=== PATIENT | female | born 1955 | race Caucasian/White ===

== ENCOUNTER → 2017-10-29 12:17 | Outpatient (CLI) | payer OTHER, SELFPAY | PROVIDERS: Family Provider Nurse Practitioner Primary Care; PCP Nurse Practitioner Primary Care; Visit Provider Nurse Practitioner Primary Care | DX: Z12.31 Encounter for screening mammogram for malignant neoplasm of breast (principal) | CPT/HCPCS: 77063; 77067 ==

== ENCOUNTER → 2018-08-24 10:03 | Outpatient (CLI) | payer OTHER, SELFPAY ==
[2016-08-12 11:48] VITALS: BMI 24.3
[2018-08-24 11:12] LABS: T4 Free Direct 1.55 ng/dL (0.76-1.46); Thyroid Stim Hormone (TSH) 0.47 uIU/mL (0.358-3.74)
== END ==
PROVIDERS: Family Provider Nurse Practitioner Primary Care; PCP Nurse Practitioner Primary Care; Referring Provider Nurse Practitioner Primary Care; Visit Provider Nurse Practitioner Primary Care
DX: E89.0 Postprocedural hypothyroidism (principal)
CPT/HCPCS: 36415; 84439; 84443

== ENCOUNTER → 2018-10-02 11:39 | Outpatient (CLI) | payer OTHER, SELFPAY ==
[2018-10-02 13:20] LABS: T4 Free Direct 1.63 ng/dL (0.76-1.46); Thyroid Stim Hormone (TSH) 0.38 uIU/mL (0.358-3.74)
== END ==
PROVIDERS: Family Provider Nurse Practitioner Primary Care; PCP Nurse Practitioner Primary Care; Referring Provider Nurse Practitioner Primary Care; Visit Provider Nurse Practitioner Primary Care
DX: E89.0 Postprocedural hypothyroidism (principal)
CPT/HCPCS: 36415; 84439; 84443

== ENCOUNTER → 2018-11-16 09:17 | Outpatient (CLI) | payer OTHER, SELFPAY ==
[2016-08-12 11:48] VITALS: BMI 24.3
[2018-11-16 10:54] LABS: Thyroid Stim Hormone (TSH) 2.34 uIU/mL (0.358-3.74)
== END ==
PROVIDERS: Family Provider Nurse Practitioner Primary Care; PCP Nurse Practitioner Primary Care; Referring Provider Nurse Practitioner Primary Care; Visit Provider Nurse Practitioner Primary Care
DX: E03.9 Hypothyroidism, unspecified (principal)
CPT/HCPCS: 36415; 84443

== ENCOUNTER → 2018-12-17 08:28 | Outpatient (CLI) | payer OTHER, SELFPAY ==
--- NOTE | 2018-12-17 08:31 | BI_ITS ---
MAMMOGRAPHY - BILATERAL SCREENING REASON FOR EXAM: Female, 63 years old. Routine annual screening examination. PERTINENT HISTORY: Non-contributory. TECHNIQUE: Digital bilateral breast rusty (3D mammographic acquisition) in the CC and MLO projections. 2-D mediolateral oblique (MLO) and craniocaudad (CC) views of both breasts were obtained. CAD: Full Field Digital Mammography with Computer Added Detection was performed. COMPARISON: Comparison is made with prior study dated October 29, 2017 and October 17, 2016. FINDINGS: Breast Composition: The breasts are heterogeneously dense, which may obscure small masses. There are no dominant masses or suspicious calcifications. Stable 5.4 mm x 6 mm well-defined nodule in the axillary region of the left breast. This most likely represents a small lymph node. No other significant abnormalities are identified. There has been no significant change since the prior study. BI/SCREEN MAMM (CAD) W/RUSTY BILAT IMPRESSION: Stable bilateral screening mammogram. Yearly follow-up mammogram recommended. (A) ASSESSMENT CATEGORY: BIRADS Category 2: Benign. A letter regarding these results will be sent to the patient by the facility within 30 days. Approximately 10% of breast cancers are not detected by mammography. A normal mammogram should not delay biopsy of a clinically suspicious abnormality. [id number] Electronically Signed: Kumar Leblanc, at 10:00 EDT , Service support ,
== END ==
PROVIDERS: Family Provider Nurse Practitioner Primary Care; PCP Nurse Practitioner Primary Care; Referring Provider Nurse Practitioner Primary Care; Visit Provider Nurse Practitioner Primary Care
DX: Z12.31 Encounter for screening mammogram for malignant neoplasm of breast (principal); E11.9 Type 2 diabetes mellitus without complications; E03.9 Hypothyroidism, unspecified
CPT/HCPCS: 77063; 77067

== ENCOUNTER → 2019-01-15 11:35 | Outpatient (CLI) | payer OTHER, SELFPAY ==
[2019-01-15 13:54] LABS: ALB/GLOB Ratio 1.2 RATIO (0.9-2.4); AST(SGOT) 21 U/L (15-37); Alanine Aminotransfer ALT/SGPT 27 U/L (13-56); Albumin, Serum 3.9 g/dL (3.2-5.0); Alkaline Phosphatase 57 U/L (45-117); Anion Gap 9 (5-15); BUN 15 mg/dL (7-18); BUN/Creat Ratio 17.2 RATIO (10-20); Calcium,Total 9.3 mg/dL (8.5-10.1); Chloride 105 mmol/L (98-107); Cholesterol 180 mg/dL (200); Creatinine, Serum 0.87 mg/dL (0.55-1.02); EST Glomerular Filtration Rate 70 mL/min (>60); Est Glom Filt Rate - Afr Amer 84 mL/min (>60); Globulin 3.3 g/dL (2.2-4.2); Glucose 129 mg/dL (74-106); High Density Lipoprotein 106 mg/dL; Potassium 4.1 mmol/L (3.5-5.1); Protein, Total 7.2 g/dL (6.4-8.2); Sodium Level 141 mmol/L (136-145); Thyroid Stim Hormone (TSH) 1.73 uIU/mL (0.358-3.74); Triglycerides 73 mg/dL; Very Low Density Lipoprotein 15 mg/dL (5-40)
== END ==
PROVIDERS: Family Provider Nurse Practitioner Primary Care; PCP Nurse Practitioner Primary Care; Referring Provider Nurse Practitioner Primary Care; Visit Provider Nurse Practitioner Primary Care
DX: E03.9 Hypothyroidism, unspecified (principal); E11.9 Type 2 diabetes mellitus without complications; E78.00 Pure hypercholesterolemia, unspecified
CPT/HCPCS: 36415; 80053; 80061; 84443

== ENCOUNTER → 2019-02-19 10:35 | Outpatient (CLI) | payer OTHER, SELFPAY ==
--- NOTE | 2019-02-19 10:37 | US_ITS ---
STUDY: ULTRASOUND BREAST - LEFT REASON FOR EXAM: Female, 63 years old. Abnormal screening mammogram. TECHNIQUE: Axial and longitudinal images of the LEFT breast were performed with a high resolution ultrasound transducer. # OF IMAGES: 11 COMPARISON: Comparison is made with prior mammogram dated December 17, 2018. FINDINGS: LEFT Breast: The upper outer quadrant was examined with ultrasound. There is a 5.7 mm x 5.6 mm benign-appearing lymph node at the 1:00 position of the breast at 5 cm from the nipple. US/Breast Limited Unilateral IMPRESSION: 5.7 mm x 5.6 mm benign-appearing lymph node at the 1:00 position of the breast at 5 cm from nipple. ASSESSMENT CATEGORY: BIRADS Category 2: Benign. A letter regarding these results will be sent to the patient by the facility within 30 days. Electronically Signed: Kumar Leblanc, at 12:25 EST , Service support ,
== END ==
PROVIDERS: Family Provider Nurse Practitioner Primary Care; PCP Nurse Practitioner Primary Care; Referring Provider Nurse Practitioner Primary Care; Visit Provider Nurse Practitioner Primary Care
DX: R59.0 Localized enlarged lymph nodes (principal)
CPT/HCPCS: 76642

== ENCOUNTER → 2019-03-02 13:58 | Outpatient (CLI) | payer OTHER, SELFPAY ==
[2016-08-12 11:48] VITALS: BMI 24.3
--- NOTE | 2019-03-02 14:02 | CT_ITS ---
STUDY: CT ORBITS WITHOUT CONTRAST REASON FOR EXAM: Female, 63 years old. GRAVES DX, WATERY EYE, LEFT RADIATION DOSAGE (If Supplied By Facility): CTDIvol = ( 29.38 ) mGy, DLP = ( 341.77 ) mGycm TECHNIQUE: The patient was scanned in a multi detector CT scanner. Transaxial imaging was performed without the administration of intravenous contrast material. Sagittal and coronal images were reconstructed. Individualized dose optimization techniques were used for this CT. COMPARISON: None. FINDINGS: Normal globes. Normal intraconal spaces. Normal optic nerve sheath complex. There is moderately prominent, spindle-shape of extraocular muscles (predominantly involving inferior rectus and medial rectus) with mild proptosis. Normal lacrimal glands. Normal bilateral medial and inferior orbital merino. Normal bilateral maxillary bones. Normal bilateral frontozygomatic arches. Normal bilateral zygomatic temporal arches. Normal frontal sinus. There is minimal soft tissue density involving multiple bilateral ethmoid air cells. No paranasal sinus air-fluid levels. Normal maxillary sinuses. Normal sphenoid sinuses. Normal soft tissue structures. CT/Orb Sella Post Fossa Ear w/o IMPRESSION: Findings most compatible with Graves ophthalmopathy, consistent with provided clinical history Electronically Signed: Sherwin Bowden MD at 7:41 EST , Service support ,
== END ==
PROVIDERS: Family Provider Nurse Practitioner Primary Care; PCP Nurse Practitioner Primary Care
DX: E05.00 Thyrotoxicosis with diffuse goiter without thyrotoxic crisis or storm (principal)
CPT/HCPCS: 70480

== ENCOUNTER → 2019-07-21 14:25 | Outpatient (CLI) | payer OTHER, SELFPAY ==
[2016-08-12 11:48] VITALS: BMI 24.3
[2019-07-21 16:50] LABS: T4 Free Direct 1.41 ng/dL (0.76-1.46); Thyroid Stim Hormone (TSH) 3.64 uIU/mL (0.358-3.74)
== END ==
PROVIDERS: PCP Nurse Practitioner Primary Care; Referring Provider Nurse Practitioner Primary Care; Visit Provider Nurse Practitioner Primary Care
DX: E03.9 Hypothyroidism, unspecified (principal)
CPT/HCPCS: 36415; 84439; 84443

== ENCOUNTER → 2020-01-28 11:28 | Outpatient (CLI) | payer OTHER, SELFPAY ==
[2016-08-12 11:48] VITALS: BMI 24.3
[2020-01-28 12:07] LABS: Hematocrit 41.9 % (37-47); Hemoglobin 14.1 g/dL (12.0-15.0); Mean Corp Hgb Conc 33.7 g/dL (32-36); Mean Corpuscular Hgb 34.1 pg (27.0-32.0); Mean Corpuscular Volume 101.2 fL (81-99); Mean Platelet Vol. 8.6 fl (6.2-12.0); Platelet Count 339 K/mm3 (150-450); RBC Distribution Width CV 10.9 % (11.6-14.6); Red Blood Count 4.14 M/mm3 (4.2-5.4); White Blood Count 7.6 K/mm3 (4.4-11.0)
[2020-01-28 12:38] LABS: ALB/GLOB Ratio 1.1 RATIO (0.9-2.4); AST(SGOT) 13 U/L (15-37); Alanine Aminotransfer ALT/SGPT 20 U/L (13-56); Albumin, Serum 3.8 g/dL (3.2-5.0); Alkaline Phosphatase 71 U/L (45-117); Anion Gap 4 (5-15); BUN 11 mg/dL (7-18); BUN/Creat Ratio 13.3 RATIO (10-20); Calcium,Total 9.1 mg/dL (8.5-10.1); Chloride 108 mmol/L (98-107); Cholesterol 181 mg/dL (200); Creatinine, Serum 0.82 mg/dL (0.55-1.02); EST Glomerular Filtration Rate 74 mL/min (>60); Est Glom Filt Rate - Afr Amer 90 mL/min (>60); Globulin 3.5 g/dL (2.2-4.2); Glucose 125 mg/dL (74-106); High Density Lipoprotein 108 mg/dL; Protein, Total 7.3 g/dL (6.4-8.2); Sodium Level 139 mmol/L (136-145); T4 Free Direct 1.52 ng/dL (0.76-1.46); Thyroid Stim Hormone (TSH) 3.92 uIU/mL (0.358-3.74); Triglycerides 41 mg/dL; Very Low Density Lipoprotein 8 mg/dL (5-40)
== END ==
PROVIDERS: PCP Nurse Practitioner Primary Care; Visit Provider Nurse Practitioner Primary Care
DX: E11.9 Type 2 diabetes mellitus without complications (principal); E03.9 Hypothyroidism, unspecified
CPT/HCPCS: 36415; 80053; 80061; 83036; 84439; 84443; 85027

== ENCOUNTER → 2020-09-15 08:03 | Outpatient (CLI) | payer MEDICARE, BC, SELFPAY ==
[2016-08-12 11:48] VITALS: BMI 24.3
[2020-09-15 08:29] LABS: Hematocrit 42.9 % (37-47); Hemoglobin 14.4 g/dL (12.0-15.0); Mean Corp Hgb Conc 33.6 g/dL (32-36); Mean Corpuscular Hgb 34.2 pg (27.0-32.0); Mean Corpuscular Volume 101.9 fL (81-99); Mean Platelet Vol. 8.6 fl (6.2-12.0); Platelet Count 320 K/mm3 (150-450); RBC Distribution Width CV 11.5 % (11.6-14.6); RBC Distribution Width SD 43.4 fl (35.1-43.9); Red Blood Count 4.21 M/mm3 (4.2-5.4); White Blood Count 9.4 K/mm3 (4.4-11.0)
[2020-09-15 09:19] LABS: ALB/GLOB Ratio 1.1 RATIO (0.9-2.4); AST(SGOT) 16 U/L (15-37); Alanine Aminotransfer ALT/SGPT 19 U/L (13-56); Albumin, Serum 3.8 g/dL (3.2-5.0); Alkaline Phosphatase 76 U/L (45-117); Anion Gap 6 (5-15); BUN 16 mg/dL (7-18); BUN/Creat Ratio 16.9 RATIO (10-20); Calcium,Total 8.9 mg/dL (8.5-10.1); Chloride 107 mmol/L (98-107); Cholesterol 188 mg/dL (200); Creatinine, Serum 0.95 mg/dL (0.55-1.02); EST Glomerular Filtration Rate 63 mL/min (>60); Est Glom Filt Rate - Afr Amer 76 mL/min (>60); Globulin 3.5 g/dL (2.2-4.2); Glucose 152 mg/dL (74-106); High Density Lipoprotein 106 mg/dL; Protein, Total 7.3 g/dL (6.4-8.2); Sodium Level 139 mmol/L (136-145); T4 Free Direct 1.42 ng/dL (0.76-1.46); Thyroid Stim Hormone (TSH) 2.89 uIU/mL (0.358-3.74); Triglycerides 52 mg/dL; Very Low Density Lipoprotein 10 mg/dL (5-40)
== END ==
PROVIDERS: PCP Nurse Practitioner Primary Care; Referring Provider Nurse Practitioner Primary Care; Visit Provider Nurse Practitioner Primary Care
DX: E11.9 Type 2 diabetes mellitus without complications (principal); E03.9 Hypothyroidism, unspecified; Z13.820 Encounter for screening for osteoporosis
CPT/HCPCS: 36415; 80053; 80061; 83036; 84439; 84443; 85027

== ENCOUNTER → 2020-10-18 11:17 | Outpatient (CLI) | payer MEDICARE, BC, SELFPAY ==
--- NOTE | 2020-10-18 11:25 | BI_ITS ---
MAMMOGRAPHY - BILATERAL SCREENING REASON FOR EXAM: Female, 65 years old. Routine annual screening examination. PERTINENT HISTORY: Non-contributory. TECHNIQUE: Digital bilateral breast rusty (3D mammographic acquisition) in the CC and MLO projections. 2-D mediolateral oblique (MLO) and craniocaudad (CC) views of both breasts were obtained. CAD: Full Field Digital Mammography with Computer Added Detection was performed. COMPARISON: Comparison is made with prior study 12/17/2018 and 10/29/2017. FINDINGS: Breast Composition: The breasts are heterogeneously dense, which may obscure small masses. There are no dominant masses or suspicious calcifications. There is a stable 5.4 mm x 6 mm well-defined nodule in the axillary region of the left breast. This most likely represents a small lymph node. No other significant abnormalities are identified. There has been no significant change since the prior study. BI/SCRN MAMM (CAD)W/RUSTY BILAT IMPRESSION: Stable bilateral screening mammogram. Yearly follow-up mammogram recommended. (A) ASSESSMENT CATEGORY: BIRADS Category 2: Benign. A letter regarding these results will be sent to the patient by the facility within 30 days. Approximately 10% of breast cancers are not detected by mammography. A normal mammogram should not delay biopsy of a clinically suspicious abnormality. [id number] Electronically Signed: Kumar Leblanc MD at 12:36 EDT , Service support ,
--- NOTE | 2020-10-18 11:25 | BD_ITS ---
STUDY: DUAL ENERGY X-RAY ABSORPTIOMETRY / DXA REASON FOR EXAM: Female, 65 years old. 733.00OsteoporosisBONE DENSITY REASON FOR EXAM TECHNIQUE: Bone Mineral Density (BMD) measurements of lumbar spine and bilateral hips were obtained. COMPARISON: None. FINDINGS: Lumbar Spine (L1-L4): g/cm2 (0.755) / T-score (-2.7) / Z-score (-0.9) Findings are suggestive of osteoporosis with a high fracture risk. Left Femur Total: g/cm2 (0.795) / T-score (-1.2) / Z-score (0.0) Left Femoral Neck: g/cm2 (0.670) / T-score (-1.6) / Z-score (-0.1) Right Femur Total: g/cm2 (0.781) / T-score (-1.3) / Z-score (-0.1) Right Femoral Neck: g/cm2 (0.731) / T-score (-1.1) / Z-score (0.4) BD/Dexa Bone Density Study IMPRESSION: The patient is considered osteoporotic as outlined below according to World Britt[employer] Organization (WHO) criteria with a high fracture risk. Reference Information: The T-score is the number of standard deviations above or below the standard which is normal for young adults at their peak bone mineral density. The World Health Organization (WHO) interprets the T-scores as follows: Above -1 Normal bone density Between -1 and -2.5 Osteopenia Equal to / or below -2.5 Osteoporosis As a practical clinical guideline, osteopenia may be graded as follows: Mild -1 through -1.5 Moderate -1.6 through -2.0 Severe -2.1 through -2.4 The Z-score is the number of standard deviations above or below age-matched controls. A Z-score of less than -1.5 would be considered abnormal. References: 1. NIH Osteoporosis and Related Bone Diseases www osteo.org 2. International Society for Clinical Densitometry www iscd.org 3. National Osteoporosis Foundation www nof.org Electronically Signed: Kumar Leblanc MD at 9:48 EDT , Service support ,
== END ==
PROVIDERS: PCP Nurse Practitioner Primary Care; Referring Provider Nurse Practitioner Primary Care; Visit Provider Nurse Practitioner Primary Care
DX: Z12.31 Encounter for screening mammogram for malignant neoplasm of breast (principal); Z13.820 Encounter for screening for osteoporosis; M81.0 Age-related osteoporosis without current pathological fracture
CPT/HCPCS: 77063; 77067; 77080

== ENCOUNTER → 2021-08-11 | Outpatient (CLI) | payer MEDICARE, BC, SELFPAY ==
[2021-08-11 09:44] LABS: Hematocrit 43.4 % (37-47); Hemoglobin 14.6 g/dL (12.0-15.0); Mean Corp Hgb Conc 33.6 g/dL (32-36); Mean Corpuscular Volume 101.2 fL (81-99); Mean Platelet Vol. 8.8 fl (6.2-12.0); Platelet Count 326 K/mm3 (150-450); RBC Distribution Width CV 11.6 % (11.6-14.6); RBC Distribution Width SD 43.7 fl (35.1-43.9); Red Blood Count 4.29 M/mm3 (4.2-5.4); White Blood Count 9.1 K/mm3 (4.4-11.0)
[2021-08-11 10:11] LABS: ALB/GLOB Ratio 1.2 RATIO (0.9-2.4); AST(SGOT) 15 U/L (15-37); Alanine Aminotransfer ALT/SGPT 19 U/L (13-56); Albumin, Serum 4.2 g/dL (3.2-5.0); Alkaline Phosphatase 44 U/L (45-117); Anion Gap 4 (5-15); BUN 13 mg/dL (7-18); BUN/Creat Ratio 16.4 RATIO (10-20); Calcium,Total 9.3 mg/dL (8.5-10.1); Chloride 108 mmol/L (98-107); Cholesterol 172 mg/dL (200); Creatinine, Serum 0.79 mg/dL (0.55-1.02); EST Glomerular Filtration Rate 77 mL/min (>60); Est Glom Filt Rate - Afr Amer 93 mL/min (>60); Globulin 3.4 g/dL (2.2-4.2); Glucose 111 mg/dL (74-106); High Density Lipoprotein 103 mg/dL; Potassium 3.8 mmol/L (3.5-5.1); Protein, Total 7.6 g/dL (6.4-8.2); Sodium Level 140 mmol/L (136-145); T4 Free Direct 1.59 ng/dL (0.76-1.46); Thyroid Stim Hormone (TSH) 1.63 uIU/mL (0.358-3.74); Triglycerides 48 mg/dL; Very Low Density Lipoprotein 10 mg/dL (5-40)
== END | disposition home or self-care (01) ==
LOC: LAB 09:00
PROVIDERS: PCP Nurse Practitioner Primary Care; Referring Provider Nurse Practitioner Primary Care; Visit Provider Nurse Practitioner Primary Care
DX: E11.9 Type 2 diabetes mellitus without complications (principal)
CPT/HCPCS: 36415; 80053; 80061; 83036; 84439; 84443; 85027

== ENCOUNTER → 2021-10-30 | Outpatient (CLI) | payer MEDICARE, BC, SELFPAY ==
--- NOTE | 2021-10-30 07:42 | BI_ITS ---
MAMMOGRAPHY - BILATERAL SCREENING REASON FOR EXAM: Female, 66 years old. Routine annual screening examination. PERTINENT HISTORY: Non-contributory. TECHNIQUE: Digital bilateral breast rusty (3D mammographic acquisition) in the CC and MLO projections. 2-D mediolateral oblique (MLO) and craniocaudad (CC) views of both breasts were obtained. CAD: Full Field Digital Mammography with Computer Added Detection was performed. COMPARISON: Comparison is made with prior study 10/18/2020 and 12/17/2018. FINDINGS: Breast Composition: The breasts are heterogeneously dense, which may obscure small masses. There are no dominant masses or suspicious calcifications. Stable 5 mm x 4 mm well-defined nodular density in the axillary region of the left breast. This most likely represents a small lymph node. No other significant abnormalities are identified. There has been no significant change since the prior study. BI/SCRN MAMM (CAD)W/RUSTY BILAT IMPRESSION: Stable bilateral screening mammogram. Yearly follow-up mammogram recommended. (A) ASSESSMENT CATEGORY: BIRADS Category 2: Benign. A letter regarding these results will be sent to the patient by the facility within 30 days. Approximately 10% of breast cancers are not detected by mammography. A normal mammogram should not delay biopsy of a clinically suspicious abnormality. [id number] Electronically Signed: Kumar Leblanc MD at 8:49 EDT ,
== END | disposition home or self-care (01) ==
LOC: OPBI 07:40
PROVIDERS: PCP Nurse Practitioner Primary Care; Visit Provider Nurse Practitioner Primary Care
DX: Z12.31 Encounter for screening mammogram for malignant neoplasm of breast (principal)
CPT/HCPCS: 77063; 77067

== ENCOUNTER → 2021-12-14 | Outpatient (CLI) | payer MEDICARE, BC, SELFPAY ==
[2021-12-14 08:43] LABS: T4 Free Direct 1.49 ng/dL (0.76-1.46); Thyroid Stim Hormone (TSH) 8.74 uIU/mL (0.358-3.74)
== END | disposition home or self-care (01) ==
LOC: LAB 07:20
PROVIDERS: PCP Nurse Practitioner Primary Care; Referring Provider Nurse Practitioner Primary Care; Visit Provider Nurse Practitioner Primary Care
DX: E03.9 Hypothyroidism, unspecified (principal)
CPT/HCPCS: 36415; 84439; 84443

== ENCOUNTER → 2022-03-08 | Outpatient (CLI) | payer MEDICARE, BC, SELFPAY ==
[2022-03-08 08:33] LABS: T4 Free Direct 1.26 ng/dL (0.76-1.46); Thyroid Stim Hormone (TSH) 3.45 uIU/mL (0.358-3.74)
[2022-03-08 09:15] LABS: Vitamin D,25 Hydroxy 23.1 ng/mL
[2022-03-13 08:09] LABS: Thyroid Stim Immunoglob 0.96 IU/L (0.00-0.55)
[2022-03-14 21:45] LABS: Thyroglobulin Antibody < 1.0 IU/mL (0.0-0.9); Thyroid Peroxidase AB < 9 IU/mL (0-34)
== END | disposition home or self-care (01) ==
LOC: LAB 07:32
PROVIDERS: PCP Nurse Practitioner Primary Care
DX: E89.0 Postprocedural hypothyroidism (principal); H05.20 Unspecified exophthalmos; E55.9 Vitamin D deficiency, unspecified
CPT/HCPCS: 36415; 82306; 84439; 84443; 84445; 86376; 86800

== ENCOUNTER 2022-10-25 09:29 | Outpatient (CLI) | payer MEDICARE, BC, SELFPAY ==
[2022-10-25 10:26] LABS: Hematocrit 43.7 % (37-47); Hemoglobin 14.4 g/dL (12.0-15.0); Mean Corpuscular Hgb 34.4 pg (27.0-32.0); Mean Corpuscular Volume 104.3 fL (81-99); Mean Platelet Vol. 8.7 fl (6.2-12.0); Platelet Count 334 K/mm3 (150-450); RBC Distribution Width CV 11.5 % (11.6-14.6); Red Blood Count 4.19 M/mm3 (4.2-5.4); White Blood Count 8.3 K/mm3 (4.4-11.0)
[2022-10-25 10:53] LABS: Vitamin D,25 Hydroxy 58.7 ng/mL
[2022-10-25 10:58] LABS: ALB/GLOB Ratio 1.2 RATIO (0.9-2.4); AST(SGOT) 14 U/L (15-37); Alanine Aminotransfer ALT/SGPT 19 U/L (13-56); Alkaline Phosphatase 47 U/L (45-117); Anion Gap 6 (5-15); BUN 18 mg/dL (7-18); BUN/Creat Ratio 18.9 RATIO (10-20); Calcium,Total 9.3 mg/dL (8.5-10.1); Chloride 107 mmol/L (98-107); Cholesterol 184 mg/dL (200); Creatinine, Serum 0.95 mg/dL (0.55-1.02); EST Glomerular Filtration Rate 62 mL/min (>60); Est Glom Filt Rate - Afr Amer 75 mL/min (>60); Globulin 3.4 g/dL (2.2-4.2); Glucose 136 mg/dL (74-106); High Density Lipoprotein 111 mg/dL; Potassium 4.2 mmol/L (3.5-5.1); Protein, Total 7.4 g/dL (6.4-8.2); Sodium Level 139 mmol/L (136-145); T4 Free Direct 1.31 ng/dL (0.76-1.46); Thyroid Stim Hormone (TSH) 3.63 uIU/mL (0.358-3.74); Triglycerides 37 mg/dL; Very Low Density Lipoprotein 7 mg/dL (5-40)
== END 2022-10-25 23:59 | disposition home or self-care (01) ==
LOC: LAB 09:31
PROVIDERS: PCP Nurse Practitioner Primary Care; Referring Provider Nurse Practitioner Primary Care; Visit Provider Nurse Practitioner Primary Care
DX: E11.9 Type 2 diabetes mellitus without complications (principal); E03.9 Hypothyroidism, unspecified; Z86.39 Personal history of other endocrine, nutritional and metabolic disease
CPT/HCPCS: 36415; 80053; 80061; 82306; 84439; 84443; 85027

== ENCOUNTER → 2022-11-19 | Outpatient (CLI) | payer MEDICARE, BC, SELFPAY ==
--- NOTE | 2022-11-19 09:59 | BI_ITS ---
MAMMOGRAPHY - BILATERAL SCREENING REASON FOR EXAM: Female, 67 years old. Routine annual screening examination. PERTINENT HISTORY: Non-contributory. TECHNIQUE: Digital bilateral breast rusty (3D mammographic acquisition) in the CC and MLO projections. 2-D mediolateral oblique (MLO) and craniocaudad (CC) views of both breasts were obtained. CAD: Full Field Digital Mammography with Computer Added Detection was performed. COMPARISON: Comparison is made with prior study October 30, 2021 and October 18, 2020. FINDINGS: Breast Composition: The breasts are heterogeneously dense, which may obscure small masses. There are no dominant masses or suspicious calcifications. Stable well-defined 5 mm x 4 mm nodule in the axillary region of the left breast. This most likely represents a small lymph node. No other significant abnormalities are identified. There has been no significant change since the prior study. BI/SCRN MAMM (CAD)W/RUSTY BILAT IMPRESSION: Stable bilateral screening mammogram. Yearly follow-up mammogram recommended. (A) ASSESSMENT CATEGORY: BIRADS Category 2: Benign. A letter regarding these results will be sent to the patient by the facility within 30 days. Approximately 10% of breast cancers are not detected by mammography. A normal mammogram should not delay biopsy of a clinically suspicious abnormality. [id number] Electronically Signed: Kumar Leblanc MD at 11:02 EDT ,
--- NOTE | 2022-11-19 10:06 | BD_ITS ---
STUDY: DUAL ENERGY X-RAY ABSORPTIOMETRY / DXA REASON FOR EXAM: Female, 67 years old. [id number] TECHNIQUE: Bone Mineral Density (BMD) measurements of lumbar spine and bilateral hips were obtained. COMPARISON: Comparison is made with prior study October 18, 2020. FINDINGS: Lumbar Spine (L1-L4): g/cm2 (0.787) / T-score (-2.4) / Z-score (-0.5) Findings are suggestive of osteopenia with a high fracture risk. Left Femur Total: g/cm2 (0.784) / T-score (-1.3) / Z-score (0.0) Left Femoral Neck: g/cm2 (0.672) / T-score (-1.6) / Z-score (0.0) Right Femur Total: g/cm2 (0.796) / T-score (-1.2) / Z-score (0.1) Right Femoral Neck: g/cm2 (0.734) / T-score (-1.0) / Z-score (0.6) The T-Scores on the most recent prior examination were: Lumbar Spine (L1-L4): There has been improvement of bone density since the previous examination. Left Femur Total: which represents a worsening of 1.5%. Right Femur Total: which represents an improvement of 1.9%. BD/Dexa Bone Density Study IMPRESSION: The patient is considered osteopenic as outlined below according to World [employer] Organization (WHO) criteria with a moderate fracture risk. There has been improvement of bone density since the previous examination. Reference Information: The T-score is the number of standard deviations above or below the standard which is normal for young adults at their peak bone mineral density. The World Health Organization (WHO) interprets the T-scores as follows: Above -1 Normal bone density Between -1 and -2.5 Osteopenia Equal to / or below -2.5 Osteoporosis As a practical clinical guideline, osteopenia may be graded as follows: Mild -1 through -1.5 Moderate -1.6 through -2.0 Severe -2.1 through -2.4 The Z-score is the number of standard deviations above or below age-matched controls. A Z-score of less than -1.5 would be considered abnormal. References: 1. NIH Osteoporosis and Related Bone Diseases www osteo.org 2. International Society for Clinical Densitometry www iscd.org 3. National Osteoporosis Foundation www nof.org Electronically Signed: Kumar Leblanc MD at 12:42 EDT ,
== END | disposition home or self-care (01) ==
LOC: OPBD 09:57
PROVIDERS: PCP Nurse Practitioner Primary Care; Referring Provider Nurse Practitioner Primary Care; Visit Provider Nurse Practitioner Primary Care
DX: Z12.31 Encounter for screening mammogram for malignant neoplasm of breast (principal); Z13.820 Encounter for screening for osteoporosis; Z78.0 Asymptomatic menopausal state
CPT/HCPCS: 77063; 77067; 77080

== ENCOUNTER → 2023-06-06 | Outpatient (CLI) | payer MEDICARE, BC, SELFPAY ==
--- NOTE | 2023-06-06 12:20 | RAD_ITS ---
STUDY: XR Chest 2 Views 06/06/2023 12:20 PM REASON FOR EXAM: Female, 67 years old. CHEST PAIN, COUGH COMPARISON: None TECHNIQUE: XR Chest 2 Views FINDINGS: There is no demonstrated pleural abnormality. The lung aragon are hyperexpanded. Normal heart size. Normal mediastinum. Normal alberto. Prominent appearing increased interstitial lung markings. Normal visualized pulmonary arteries. There is atherosclerotic calcification of the aortic arch with tortuosity. There are diffuse degenerative changes of the visualized thoracic spine. There is degenerative osteoarthritis of the bilateral shoulders. There are no acute findings of the upper abdomen. RAD/Chest PA and Lateral IMPRESSION: There are no acute findings. Electronically Signed: Abdulkadir Reyes MD at 15:31 EDT ,
== END | disposition home or self-care (01) ==
LOC: RAD 12:13
PROVIDERS: PCP Nurse Practitioner Primary Care; Referring Provider Nurse Practitioner Family; Visit Provider Nurse Practitioner Family
DX: R07.1 Chest pain on breathing (principal)
CPT/HCPCS: 71046

== ENCOUNTER → 2023-11-06 | Outpatient (CLI) | payer MEDICARE, BC, SELFPAY ==
[2023-11-06 09:58] LABS: Hematocrit 43.7 % (37-47); Hemoglobin 14.5 g/dL (12.0-15.0); Mean Corp Hgb Conc 33.2 g/dL (32-36); Mean Corpuscular Hgb 33.2 pg (27.0-32.0); Mean Platelet Vol. 8.7 fl (6.2-12.0); Platelet Count 354 K/mm3 (150-450); RBC Distribution Width CV 11.4 % (11.6-14.6); Red Blood Count 4.37 M/mm3 (4.2-5.4); White Blood Count 6.7 K/mm3 (4.4-11.0)
[2023-11-06 10:30] LABS: AST(SGOT) 19 U/L (15-37); Alanine Aminotransfer ALT/SGPT 20 U/L (13-56); Albumin, Serum 3.9 g/dL (3.2-5.0); Alkaline Phosphatase 56 U/L (45-117); Anion Gap 4 (5-15); BUN 16 mg/dL (7-18); BUN/Creat Ratio 17.4 RATIO (10-20); Calcium,Total 10.2 mg/dL (8.5-10.1); Chloride 105 mmol/L (98-107); Cholesterol 159 mg/dL (200); Creatinine, Serum 0.92 mg/dL (0.55-1.02); EST Glomerular Filtration Rate 64 mL/min (>60); Est Glom Filt Rate - Afr Amer 78 mL/min (>60); Globulin 3.8 g/dL (2.2-4.2); Glucose 137 mg/dL (74-106); High Density Lipoprotein 91 mg/dL; Potassium 4.2 mmol/L (3.5-5.1); Protein, Total 7.7 g/dL (6.4-8.2); Sodium Level 138 mmol/L (136-145); T4 Free Direct 1.61 ng/dL (0.76-1.46); Triglycerides 70 mg/dL; Very Low Density Lipoprotein 14 mg/dL (5-40)
[2023-11-06 12:09] LABS: Hemoglobin A1c 6.4 % (3.8-5.6)
== END | disposition home or self-care (01) ==
PROVIDERS: PCP Nurse Practitioner Primary Care; Referring Provider Nurse Practitioner Primary Care; Visit Provider Nurse Practitioner Primary Care
DX: E11.9 Type 2 diabetes mellitus without complications (principal); E03.9 Hypothyroidism, unspecified; Z86.39 Personal history of other endocrine, nutritional and metabolic disease
CPT/HCPCS: 36415; 80053; 80061; 82306; 83036; 84439; 84443; 85027

== ENCOUNTER → 2023-12-04 | Outpatient (CLI) | payer MEDICARE, BC, SELFPAY ==
--- NOTE | 2023-12-04 09:18 | BI_ITS ---
MAMMOGRAPHY - BILATERAL SCREENING REASON FOR EXAM: Female, 68 years old. Routine annual screening examination. PERTINENT HISTORY: Non-contributory. TECHNIQUE: Digital bilateral breast rusty (3D mammographic acquisition) in the CC and MLO projections. 2-D mediolateral oblique (MLO) and craniocaudad (CC) views of both breasts were obtained. CAD: Full Field Digital Mammography with Computer Added Detection was performed. COMPARISON: Comparison is made with prior study dated November 19, 2022 and October 30, 2021. FINDINGS: Breast Composition: The breasts are heterogeneously dense, which may obscure small masses. There are no dominant masses or suspicious calcifications. Stable 5 mm x 4 mm well-defined nodule in the axillary region of the left breast suggestive of a small lymph node. No other significant abnormalities are identified. There has been no significant change since the prior study. BI/SCRN MAMM (CAD)W/RUSTY BILAT IMPRESSION: Stable bilateral screening mammogram. Yearly follow-up mammogram recommended. (A) ASSESSMENT CATEGORY: BIRADS Category 2: Benign. A letter regarding these results will be sent to the patient by the facility within 30 days. Approximately 10% of breast cancers are not detected by mammography. A normal mammogram should not delay biopsy of a clinically suspicious abnormality. [id number] Electronically Signed: Kumar Leblanc MD at 10:41 EDT ,
== END | disposition home or self-care (01) ==
LOC: OPBI 09:16
PROVIDERS: PCP Nurse Practitioner Primary Care; Referring Provider Nurse Practitioner Primary Care; Visit Provider Nurse Practitioner Primary Care
DX: Z12.31 Encounter for screening mammogram for malignant neoplasm of breast (principal)
CPT/HCPCS: 77063; 77067

== ENCOUNTER → 2023-12-12 | Outpatient (CLI) | payer MEDICARE, BC, SELFPAY ==
[2023-12-12 10:13] LABS: Anion Gap 6 (5-15); BUN 14 mg/dL (7-18); BUN/Creat Ratio 14.5 RATIO (10-20); Calcium,Total 10.3 mg/dL (8.5-10.1); Chloride 103 mmol/L (98-107); Creatinine, Serum 0.97 mg/dL (0.55-1.02); EST Glomerular Filtration Rate 61 mL/min (>60); Est Glom Filt Rate - Afr Amer 74 mL/min (>60); Glucose 151 mg/dL (74-106); Potassium 4.1 mmol/L (3.5-5.1); Sodium Level 137 mmol/L (136-145); T4 Free Direct 1.39 ng/dL (0.76-1.46)
== END | disposition home or self-care (01) ==
PROVIDERS: PCP Nurse Practitioner Primary Care; Referring Provider Nurse Practitioner Primary Care; Visit Provider Nurse Practitioner Primary Care
DX: E03.9 Hypothyroidism, unspecified (principal); E83.52 Hypercalcemia
CPT/HCPCS: 36415; 80048; 84439; 84443

== ENCOUNTER → 2024-01-03 | Outpatient (CLI) | payer MEDICARE, BC, SELFPAY ==
[2024-01-03 09:59] LABS: Erythrocyte Sedimentation Rate 1 mm/hr (0-30)
[2024-01-03 10:01] LABS: Hematocrit 38.8 % (37-47); Hemoglobin 13.1 g/dL (12.0-15.0); Mean Corp Hgb Conc 33.8 g/dL (32-36); Mean Corpuscular Hgb 34.3 pg (27.0-32.0); Mean Corpuscular Volume 101.6 fL (81-99); Mean Platelet Vol. 9.2 fl (6.2-12.0); Platelet Count 302 K/mm3 (150-450); RBC Distribution Width CV 11.9 % (11.6-14.6); RBC Distribution Width SD 44.1 fl (35.1-43.9); Red Blood Count 3.82 M/mm3 (4.2-5.4); White Blood Count 7.9 K/mm3 (4.4-11.0)
[2024-01-03 10:14] LABS: Hemoglobin A1c 6.4 % (3.8-5.6)
[2024-01-03 10:22] LABS: ALB/GLOB Ratio 1.2 RATIO (0.9-2.4); AST(SGOT) 16 U/L (15-37); Alanine Aminotransfer ALT/SGPT 19 U/L (13-56); Albumin, Serum 3.9 g/dL (3.2-5.0); Alkaline Phosphatase 42 U/L (45-117); Anion Gap 6 (5-15); BUN 16 mg/dL (7-18); BUN/Creat Ratio 20.5 RATIO (10-20); CRP < 2.90 mg/L (0.0-3.0); Calcium,Total 9.1 mg/dL (8.5-10.1); Chloride 107 mmol/L (98-107); Cholesterol 164 mg/dL (200); Creatinine, Serum 0.78 mg/dL (0.55-1.02); EST Glomerular Filtration Rate 78 mL/min (>60); Est Glom Filt Rate - Afr Amer 94 mL/min (>60); Globulin 3.3 g/dL (2.2-4.2); Glucose 135 mg/dL (74-106); High Density Lipoprotein 107 mg/dL; Potassium 4.1 mmol/L (3.5-5.1); Protein, Total 7.2 g/dL (6.4-8.2); Sodium Level 138 mmol/L (136-145); T4 Free Direct 1.33 ng/dL (0.76-1.46); Triglycerides 64 mg/dL; Very Low Density Lipoprotein 13 mg/dL (5-40)
[2024-01-05 07:58] LABS: Vitamin D,25 Hydroxy 26.6 ng/mL
== END | disposition home or self-care (01) ==
LOC: LAB.FUTURE 08:34 → LAB 08:36
PROVIDERS: PCP Nurse Practitioner Primary Care; Referring Provider Internal Medicine Endocrinology, Diabetes & Metabolism; Visit Provider Internal Medicine Endocrinology, Diabetes & Metabolism
DX: E83.52 Hypercalcemia (principal); E11.9 Type 2 diabetes mellitus without complications; R63.4 Abnormal weight loss; E03.9 Hypothyroidism, unspecified
CPT/HCPCS: 36415; 80053; 80061; 82306; 83036; 83970; 84439; 84443; 85027; 85652; 86140

== ENCOUNTER → 2024-01-26 | Outpatient (CLI) | payer MEDICARE, BC, SELFPAY ==
--- NOTE | 2024-01-26 17:50 | CT_ITS ---
STUDY: CT CHEST, ABDOMEN T PELVIS WITH CONTRAST REASON FOR EXAM: Female, 68 years old. WEIGHTLOSS RADIATION DOSAGE (If Supplied By Facility): CTDIvol = ( 7.92 ) mGy, DLP = ( 519.95 ) mGycm TECHNIQUE: Transaxial imaging was performed following intravenous administration of Oral and amp; IV BREEZA NEUTRAL and amp; 100mL Isovue-370. Individualized dose optimization techniques were used for this CT. COMPARISON: 09/15/2006 FINDINGS: CHEST Moderate bilateral apical scarring. No noncalcified nodule or mass. There is no demonstrated pleural abnormality. Normal heart and pericardium. Normal mediastinum. Normal hilar regions. Normal unenhanced pulmonary arteries. Normal aorta arch and descending thoracic aorta. Normal osseous structures. There is no demonstrated abnormality of the visualized upper abdomen. ABDOMEN The visualized lung bases are unremarkable. The visualized portions of the heart are within normal limits. Normal liver. The gallbladder is contracted. Normal spleen. Normal pancreas. Normal bilateral adrenal glands. Normal right kidney. Normal left kidney. Normal visualized stomach. Normal small intestine. Normal colon. There is non-visualization of the appendix. Normal abdominal aorta. Normal inferior vena cava. Normal retroperitoneum. Normal abdominal wall. Normal osseous structures. PELVIS Normal urinary bladder. Normal visualized small intestine. Normal visualized colon. There is no pelvic fluid. There is no pelvic lymphadenopathy or mass lesion. Normal visualized pelvic arteries. Normal abdominal wall. Normal osseous structures. CT/CT Chest, Abd, Pel w/Contrast IMPRESSION: Normal enhanced CT chest, abdomen T pelvis examination. Electronically Signed: Tito Alvarado MD at 13:17 EST ,
== END | disposition home or self-care (01) ==
LOC: CT 17:48
PROVIDERS: PCP Nurse Practitioner Primary Care; Referring Provider Nurse Practitioner Primary Care; Visit Provider Nurse Practitioner Primary Care
DX: R63.4 Abnormal weight loss (principal); E83.52 Hypercalcemia
CPT/HCPCS: 71260; 74177; Q9967

== ENCOUNTER → 2024-02-24 | Outpatient (CLI) | payer MEDICARE, BC, SELFPAY ==
[2024-02-24 10:27] LABS: ALB/GLOB Ratio 1.1 RATIO (0.9-2.4); AST(SGOT) 13 U/L (15-37); Alanine Aminotransfer ALT/SGPT 26 U/L (13-56); Albumin, Serum 3.9 g/dL (3.2-5.0); Alkaline Phosphatase 42 U/L (45-117); Anion Gap 3 (5-15); BUN 18 mg/dL (7-18); BUN/Creat Ratio 20.1 RATIO (10-20); Calcium,Total 9.3 mg/dL (8.5-10.1); Chloride 108 mmol/L (98-107); EST Glomerular Filtration Rate 66 mL/min (>60); Est Glom Filt Rate - Afr Amer 80 mL/min (>60); Free T3 2.2 pg/mL (2.18-3.98); Globulin 3.5 g/dL (2.2-4.2); Glucose 134 mg/dL (74-106); Potassium 4.3 mmol/L (3.5-5.1); Protein, Total 7.4 g/dL (6.4-8.2); Sodium Level 139 mmol/L (136-145); T4 Free Direct 1.27 ng/dL (0.76-1.46)
== END | disposition home or self-care (01) ==
PROVIDERS: PCP Nurse Practitioner Primary Care; Referring Provider Internal Medicine Endocrinology, Diabetes & Metabolism; Visit Provider Internal Medicine Endocrinology, Diabetes & Metabolism
DX: E89.0 Postprocedural hypothyroidism (principal); E55.9 Vitamin D deficiency, unspecified
CPT/HCPCS: 36415; 80053; 82306; 84439; 84443; 84481

== ENCOUNTER → 2024-04-14 | Outpatient (CLI) | payer MEDICARE, BC, SELFPAY | END | disposition home or self-care (01) | LOC: LAB 09:27 | PROVIDERS: PCP Nurse Practitioner Primary Care; Referring Provider Internal Medicine Endocrinology, Diabetes & Metabolism; Visit Provider Internal Medicine Endocrinology, Diabetes & Metabolism | DX: E89.0 Postprocedural hypothyroidism (principal) | CPT/HCPCS: 36415; 84443 ==

== ENCOUNTER → 2024-05-31 | Outpatient (CLI) | payer MEDICARE, BC, SELFPAY ==
[2024-05-31 11:43] LABS: ALB/GLOB Ratio 1.6 RATIO (0.9-2.4); AST(SGOT) 28 U/L (<=31); Alanine Aminotransfer ALT/SGPT 31 U/L (<=34); Albumin, Serum 4.3 g/dL (3.4-4.8); Alkaline Phosphatase 60 U/L (35-104); Anion Gap 11 (5-15); BUN 15 mg/dL (4-19); BUN/Creat Ratio 17.9 RATIO (10-20); Calcium,Total 9.6 mg/dL (7.6-11.0); Carbon Dioxide 20.8 mmol/L (21.0-32.0); Chloride 103 mmol/L (98-108); Creatinine, Serum 0.84 mg/dL (0.70-1.20); EST Glomerular Filtration Rate 76 (>60); Globulin 2.7 g/dL (2.2-4.2); Glucose 208 mg/dL (70-99); Potassium 4.7 mmol/L (3.3-5.1); Sodium Level 135 mmol/L (133-145); Total Bilirubin 0.17 mg/dL (0.00-1.30); Vitamin D,25 Hydroxy 70.9 ng/mL (30-100)
== END | disposition home or self-care (01) ==
LOC: LAB 10:08
PROVIDERS: PCP Nurse Practitioner Primary Care; Referring Provider Internal Medicine Endocrinology, Diabetes & Metabolism; Visit Provider Internal Medicine Endocrinology, Diabetes & Metabolism
DX: E89.0 Postprocedural hypothyroidism (principal); E55.9 Vitamin D deficiency, unspecified
CPT/HCPCS: 36415; 80053; 82306; 84443

== ENCOUNTER → 2024-07-16 | Outpatient (CLI) | payer MEDICARE, BC, SELFPAY ==
[2024-07-16 11:46] LABS: ALB/GLOB Ratio 1.5 RATIO (0.9-2.4); AST(SGOT) 25 U/L (<=31); Alanine Aminotransfer ALT/SGPT 27 U/L (<=34); Albumin, Serum 4.1 g/dL (3.4-4.8); Alkaline Phosphatase 51 U/L (35-104); Anion Gap 10 (5-15); BUN 18 mg/dL (4-19); BUN/Creat Ratio 18.7 RATIO (10-20); Calcium,Total 9.6 mg/dL (7.6-11.0); Carbon Dioxide 24.3 mmol/L (21.0-32.0); Chloride 104 mmol/L (98-108); Cholesterol 170 mg/dL (<=200); Creatinine, Serum 0.97 mg/dL (0.70-1.20); EST Glomerular Filtration Rate 64 (>60); Globulin 2.8 g/dL (2.2-4.2); Glucose 138 mg/dL (70-99); High Density Lipoprotein 100 mg/dL; Low Density Lipoprotein Calc. 59 mg/dL; Potassium 4.6 mmol/L (3.3-5.1); Protein, Total 6.9 g/dL (5.9-8.4); Sodium Level 138 mmol/L (133-145); Total Bilirubin 0.25 mg/dL (0.00-1.30); Triglycerides 55 mg/dL; Very Low Density Lipoprotein 11 mg/dL (5-40); cholesterol:hdl ratio screen 1.71
== END | disposition home or self-care (01) ==
LOC: LAB.FUTURE 09:40 → LAB 09:40
PROVIDERS: PCP Nurse Practitioner Primary Care
DX: E89.0 Postprocedural hypothyroidism (principal); E11.65 Type 2 diabetes mellitus with hyperglycemia; E78.2 Mixed hyperlipidemia
CPT/HCPCS: 36415; 80053; 80061; 83036; 84443

== ENCOUNTER → 2024-09-08 | Outpatient (CLI) | payer MEDICARE, BC, SELFPAY | END | disposition home or self-care (01) | LOC: LAB 08:38 | PROVIDERS: PCP Nurse Practitioner Primary Care | DX: E89.0 Postprocedural hypothyroidism (principal) | CPT/HCPCS: 36415; 84443 ==

== ENCOUNTER → 2024-09-09 | Outpatient (CLI) | payer MEDICARE, BC, SELFPAY ==
--- NOTE | 2024-09-09 07:43 | ECHOD_ITS ---
Reason For Study Reason For Study: DM Procedure This was a 2D Doppler, Color Flow transthoracic echocardiogram. Exam performed in department. Left Ventricle Left ventricular systolic function is normal. The LV ejection fraction is 60 %. Stage 1 diastolic dysfunction. No regional wall motion abnormalities noted. Atria Normal left atrium. Normal right atrium. Normal atrial septum. Mitral Valve Trivial mitral valve insufficiency. Tricuspid Valve The tricuspid valve is not well visualized. Unable to estimate RV systolic pressure due to insufficient tricuspid regurgitant envelope. Aortic Valve Trisinus/trileaflet aortic valve. Great Vessels Inferior vena cava collapse with respiration. Normal inferior vena cava. MMode/2D Measurements & Calculations LVIDd: 4.4 cm IVSd: 0.86 cm Ao root diam: 3.3 cm LVIDs: 3.4 cm LVPWd: 0.73 cm RVDd: 3.6 cm FS: 23.1 % LAV(MOD-bp): 42.5 ml SV(MOD-sp4): 52.5 ml LVAd ap4: 28.7 cm2 LAV(MOD-bp) Indexed: 27.8 ml/m2 LVLd ap4: 7.5 cm SI(MOD-sp4): 34.4 ml/m2 LAV(MOD-sp2): 39.3 ml EDV(MOD-sp4): 91.2 ml LAV(MOD-sp4): 42.8 ml EDV(sp4-el): 93.4 ml LVAs ap4: 16.7 cm2 LVLs ap4: 6.2 cm ESV(MOD-sp4): 38.7 ml ESV(sp4-el): 38.4 ml EF(MOD-sp4): 57.6 % EF(sp4-el): 58.9 % SV(sp4-el): 55.0 ml LA dimension(2D): 3.2 cm LA A4 area: 16.1 cm2 RA A4 area: 9.2 cm2 Time Measurements MV dec time: 0.28 sec Doppler Measurements & Calculations MV E max adriel: 48.6 cm/sec Lat Peak E' Adriel: 7.1 cm/sec Med Peak E' Adriel: 3.7 cm/sec MV A max adriel: 66.6 cm/sec E/E' lat: 6.9 E/E' med: 13.3 MV E/A: 0.73 MV V2 max: 72.5 cm/sec Ao V2 max: 107.6 cm/sec MV max P.1 mmHg MV dec slope: 178.9 cm/sec2 Ao max P.6 mmHg MV V2 mean: 42.7 cm/sec Ao V2 mean: 79.0 cm/sec MV mean P.80 mmHg Ao mean P.8 mmHg MV V2 VTI: 28.9 cm Ao V2 VTI: 26.9 cm AV (velocity ratio): 0.72 LV V1 max: 83.5 cm/sec MR max adriel: 634.8 cm/sec PA V2 max: 71.7 cm/sec LV V1 max P.8 mmHg MR max P.2 mmHg PA V2 mean: 54.7 cm/sec LV V1 mean P.7 mmHg MR mean adriel: 471.4 cm/sec LV V1 mean: 61.0 cm/sec MR mean P.0 mmHg LV V1 VTI: 19.4 cm MR VTI: 260.3 cm ECHO/Echo Complete Interpretation Summary Left ventricular systolic function is normal. The LV ejection fraction is 60 %. Ordering Physician: WALLACE SEWELL Referring Physician: WALLACE SEWELL Performed By: Chika Borrego RCS
== END | disposition home or self-care (01) ==
LOC: CVS 07:41
PROVIDERS: PCP Nurse Practitioner Primary Care
DX: E11.65 Type 2 diabetes mellitus with hyperglycemia (principal); Z13.6 Encounter for screening for cardiovascular disorders
CPT/HCPCS: 93306

== ENCOUNTER → 2024-10-22 | Outpatient (CLI) | payer MEDICARE, BC, SELFPAY ==
--- OUTSIDE RECORDS SUMMARY | 2024-10-22 07:30 | XMS RPT_ITS | CCD ---
Author Organization [facility] Care Team Providers Care [employer] Harvest[employer] Supervisor Name Role Phone Wil Dean Primary Care Provider [phone] VENICE BHATIA Attending Unavailable SRIRAMVENICE GRANADOS Primary Care Unavailable SRIRAMVENICE GRANADOS Admitting Unavailable VENICE BHATIA Attending Unavailable SRIRAMVENICE GRANADOS Primary Care Unavailable SRIRAMVENICE GRANADOS Admitting Unavailable JERMAINE MACHINE FEEDER RAW STOCK-SHIPPING ROOM SUPERVISOR, WIL S Primary Care Physicia n JERMAINE MACHINE FEEDER RAW STOCK-SHIPPING ROOM SUPERVISOR, WIL S Attending Unava ilable JERMAINE MACHINE FEEDER RAW STOCK-SHIPPING ROOM SUPERVISOR, WIL S Primary Care Unava ilable JERMAINE MACHINE FEEDER RAW STOCK-SHIPPING ROOM SUPERVISOR, WIL S Attending Unava ilable JERMAINE MACHINE FEEDER RAW STOCK-SHIPPING ROOM SUPERVISOR, WIL S Primary Care Unava ilable JERMAINE MACHINE FEEDER RAW STOCK-SHIPPING ROOM SUPERVISOR, WIL S Attending Unava ilable JERMAINE MACHINE FEEDER RAW STOCK-SHIPPING ROOM SUPERVISOR, WIL S Primary Care Unava ilable [place] SUCTION DREDGE DUMPING SUPERVISOR-C, Wil Primary Care Provider Dr. Himanshu Reyes DO Attending Provider Dr. Himanshu Reyes DO Referring Provider JERMAINE MACHINE FEEDER RAW STOCK-SHIPPING ROOM SUPERVISOR, WIL S Primary Care Unava ilable JERMAINE MACHINE FEEDER RAW STOCK-SHIPPING ROOM SUPERVISOR, WIL S Attending Unava ilable JERMAINE MACHINE FEEDER RAW STOCK-SHIPPING ROOM SUPERVISOR, WIL S Primary Care Unava ilable JERMAINE MACHINE FEEDER RAW STOCK-SHIPPING ROOM SUPERVISOR, WIL S Attending Unava ilable JERMAINE MACHINE FEEDER RAW STOCK-SHIPPING ROOM SUPERVISOR, WIL S Primary Care Unava ilable JERMAINE MACHINE FEEDER RAW STOCK-SHIPPING ROOM SUPERVISOR, WIL S Attending Unava ilable JERMAINE MACHINE FEEDER RAW STOCK-SHIPPING ROOM SUPERVISOR, WIL S Primary Care Unava ilable JERMAINE MACHINE FEEDER RAW STOCK-SHIPPING ROOM SUPERVISOR, WIL S Attending Unava ilable [place] SUCTION DREDGE DUMPING SUPERVISOR-C, Wil Primary Care Provider Eleuterio MONTANEZ, Dr. Downs Attending Provider Eleuterio DO, Dr. Downs Referring Provider WALLACE SEWELL Attending Provider [phone] WALLACE SEWELL Referring Provider [phone] Jermaine SUCTION DREDGE DUMPING SUPERVISOR-C, Wil Primary Care Provider Eleuterio MONTANEZ, Dr. Downs Attending Provider Eleuterio DO, Dr. Downs Referring Provider WALLACE SEWELL Attending Provider WALLACE SEWELL Referring Provider [phone] WALLACE SEWELL Attending Provider [phone] WALLACE SEWELL Referring Provider [place] SUCTION DREDGE DUMPING SUPERVISOR, Wil Primary Care Unavailable Jermaine SUCTION DREDGE DUMPING SUPERVISOR, Wil Attending Unavailable Jermaine SUCTION DREDGE DUMPING SUPERVISOR, Wil Referring Unavailable Dallas Reyesin Attending Unavailable Eleuterio, Himanshu Referring Unavailable [place] SUCTION DREDGE DUMPING SUPERVISOR, Wil Primary Care Unavailable Eleuterio Himanshu Referring Unavailable Eleuterio Himanshu Attending Unavailable Jermaine SUCTION DREDGE DUMPING SUPERVISOR, Wil Primary Care Unavailable GEORGE, HEN1 Attending Unavailable GEORGE, HEN1 Referring Unavailable [place] SUCTION DREDGE DUMPING SUPERVISOR, Wil Primary Care Unavailable GEORGE, HEN1 Referring Unavailable GEORGE, HEN1 Attending Unavailable Jermaine SUCTION DREDGE DUMPING SUPERVISOR, Wil Primary Care Unavailable GEORGE, HEN1 Referring Unavailable GEORGE, HEN1 Attending Unavailable Jermaine SUCTION DREDGE DUMPING SUPERVISOR, Wil Primary Care Unavailable GEORGE, HEN1 Referring Unavailable Jody Conn Attending Unavailable Jermaine SUCTION DREDGE DUMPING SUPERVISOR, Wil Primary Care Unavailable [place] SUCTION DREDGE DUMPING SUPERVISOR, Wil Primary Care Unavailable [place] SUCTION DREDGE DUMPING SUPERVISOR, Wil Attending Unavailable Jermaine SUCTION DREDGE DUMPING SUPERVISOR, Wil Referring Unavailable Jermaine SUCTION DREDGE DUMPING SUPERVISOR, Wil Primary Care Unavailable Eleuterio Himanshu Attending Unavailable Shandraetecha, Himanshu Referring Unavailable [place] SUCTION DREDGE DUMPING SUPERVISOR, Wil Primary Care Unavailable Jermaine SUCTION DREDGE DUMPING SUPERVISOR, Wil Attending Unavailable [place] SUCTION DREDGE DUMPING SUPERVISOR, Wil Referring Unavailable Jermaine SUCTION DREDGE DUMPING SUPERVISOR, Wil Primary Care Unavailable Dallas Reyesin Attending Unavailable iHmanshu Reyes Referring Unavailable Wil Dean NP Primary Care Unavailable Wil Dean NP Attending Unavailable Jermaine MAGANA, Wil Referring Unavailable Allergies Allergy Classification Reported Allergen(s) Allergy Type Date of Onset Reaction(s) Facility (1 source) Acetaminophen / oxyCODONE Drug Allergy 0 [place], [place] (2 sources) Penicillins Propensity to adverse reactions to drug 7 [place], [place] (1 source) trovafloxacin Drug Allergy 0 [place], [place] (6 sources) Acetaminophen / oxyCODONE; Translations: [acetaminophen-ox ycodone] Drug Allergy vomiting [facility] (6 sources) alatrofloxacin; Translations: [trovafloxacin] Drug Allergy Nausea [facility] (6 sources) Lisinopril; Translations: [lisinopril] Drug Allergy cough [facility] (6 sources) Penicillin; Translations: [penicillin] Drug Allergy [facility] (11 sources) oxyCODONE; Translations: [oxycodone HCl] Drug Allergy 7 [facility] (4 sources) TROBAN Allergy to substance 7 [facility] (9 sources) Penicillins Allergy to substance 7 [facility] (7 sources) Environmental Allergies: Uncoded; Translations: [Environmental Allergies: Uncoded] Allergy to substance 3 [facility] Comment on above: Troban-insecticide (1 source) Penicillins Drug allergy (disorder) 7 [facility] Repository Medications Current Medications Medication Drug Class(es) Dates Sig (Normalized) Sig (Original) acetaminophen 500 mg oral tablet (6 sources) Start: 10-06-2018 acetaminophen 500 mg oral tablet Dose : 1,000 mg = 2 tab(s), Oral, q6hr, PRN for fever, 0 Refill(s) Start Date: 10/06/18 Status: Ordered amLODIPine 2.5 mg oral tablet (5 sources) Dihydropyridine Calcium Channel Radames Start: 10-10-2021 amLODIPine 2.5 mg oral tablet Dose : 2.5 mg = 1 tab(s), Oral, qDay, # 90 tab(s), 3 Refill(s), [id number], 160.5, cm, 10/10/21 9:56:00 EDT, Height, kg, 10/10/21 9:56:00 EDT, Dosing Weight Start Date: 10/10/21 Status: Ordered Start: 11-09-2020 amLODIPine 2.5 mg oral tablet Dose : 2.5 mg = 1 tab(s), Oral, qDay, # 90 tab(s), 3 Refill(s), [id number], 164, cm, 10/25/20 9:19:00 EDT, Height, kg, 10/25/20 9:19:00 EDT, Dosing Weight Start Date: 11/09/20 Status: Ordered take 1 tablet by [facility] once daily amLODIPine (NORVASC) 2.5 MG tablet Take 2.5 mg by mouth daily 0 Active docosahexaenoic acid 120 mg / eicosapentaenoic acid 180 mg oral capsule (1 source) take 1 capsule by mouth three times daily Clayton-3 Fatty Acids (FISH OIL) 1000 MG CAPS Take 3,000 mg by mouth 3 times daily 0 Active doxycycline hyclate 100 mg oral capsule (1 source) Tetracycline-cla ss Drug Start: End: doxycycline hyclate 100 mg oral capsule Dose : 100 mg = 1 cap(s), Oral, BID, X 7 day(s), # 14 cap(s), 0 Refill(s), 06/06/23 4:43:00 PM EDT, Pharmacy: [facility]/pharmacy #[id number], Acute rhinosinusitis, 162, cm, 05/30/23 15:56:00 EDT, Height, 58.6, kg, 05/30/23 15:56:00 EDT, Dosing Weight Start Date: 05/30/23 Stop Date: 06/06/23 Status: Ordered 0.5 ml dulaglutide 1.5 mg/ml auto-injector (6 sources) GLP-1 Receptor Agonist Start: 024 inject 1 dose by subcutaneous injection every week Trulicity Pen 0.75 mg/0.5 mL subcutaneous solution Dose : 0.75 mg =, Subcutaneous, once a week, 0 Refill(s) Start Date: 10/28/23 Status: Ordered Start: 10-24-2022 inject 1 dose by sub cutaneous injection every week Trulicity Pen 1.5 mg/0.5 mL subcutaneous solution Dose : 1.5 mg =, Subcutaneous, qWeek, 0 Refill(s) Start Date: 10/24/22 Status: Ordered Start: 02-01-2021 End: 05-02-2021 inject 0.5 mL by subcutaneous injection every week Trulicity Pen 0.75 mg/0.5 mL subcutaneous solution Dose : 0.75 mg = 0.5 mL, Subcutaneous, qWeek, # 2.5 mL, 2 Refill(s), 0.5 mL/Pen, [id number], 162.5, cm, 02/01/21 9:08:00 EST, Height, kg, 02/01/21 9:08:00 EST, Dosing Weight Start Date: 02/01/21 Stop Date: 05/02/21 Status: Ordered levothyroxine sodium 0.088 mg oral tablet (17 sources) l-Thyroxine Start: 11-10-2023 levothyroxine 88 mcg (0.088 mg) oral tablet Dose : 88 mcg = 1 tab(s), Oral, qDay, # 90 tab(s), 3 Refill(s), [id number], 160, cm, 10/28/23 14:12:00 EDT, Height, kg, 10/28/23 14:12:00 EDT, Dosing Weight Start Date: 11/10/23 Status: Ordered Start: 10-24-2022 End: 10-19-2023 levothyroxine 100 mcg (0.1 m g) oral tablet Dose : 100 mcg = 1 tab(s), Oral, qDay, # 90 tab(s), 3 Refill(s), Pharmacy: [facility]/pharmacy #[id number], 163.5, cm, 10/24/22 9:47:00 EDT, Height, kg, 10/24/22 9:47:00 EDT, Dosing Weight Start Date: 10/24/22 Stop Date: 10/19/23 Status: Ordered Start: 10-10-2021 End: 10-05-2022 levothyroxine 100 mcg (0.1 m g) oral tablet Dose : 100 mcg = 1 tab(s), Oral, qDay, # 30 tab(s), 11 Refill(s), [id number], 160.5, cm, 10/10/21 9:56:00 EDT, Height Start Date: 10/10/21 Stop Date: 10/05/22 Status: Ordered Start: 10-19-2020 End: 10-14-2021 levothyroxine 112 mcg (0.112 mg) oral tablet Dose : 112 mcg = 1 tab(s), Oral, qDay, # 90 tab(s), 3 Refill(s), [id number], 160.5, cm, 09/07/20 8:21:00 EDT, Height, kg, 09/07/20 8:21:00 EDT, Dosing Weight Start Date: 10/19/20 Stop Date: 10/14/21 Status: Ordered Start: 04-10-2015 Levothyroxine 125 MCG tablet Active 137 ug PO DAILY April 10, 2015 1:00am Start: 04-10-2015 take 137 ug by mouth once daily Levothyroxine Active 137 MCG PO DAILY April 10, 2015 1:00am take 1 tablet by pawan th once daily levothyroxine (SYNTHROID) 112 MCG tablet Take 112 mcg by mouth Daily 0 Active losartan potassium 50 mg oral tablet (3 sources) Angiotensin 2 Receptor Radames Start: 10-28-2023 End: 10-22-2024 losartan 50 mg oral tablet Dose : 50 mg = 1 tab(s), Oral, qDay, # 90 tab(s), 3 Refill(s), [id number], 160, cm, 10/28/23 14:12:00 EDT, Height, kg, 10/28/23 14:12:00 EDT, Dosing Weight Start Date: 10/28/23 Stop Date: 10/22/24 Status: Ordered Start: 01-28-2023 losartan 50 mg oral tablet Dose : 50 mg = 1 tab(s), Oral, qDay, # 30 tab(s), 11 Refill(s), Pharmacy: [facility]/pharmacy #[id number], 163.5, cm, 10/24/22 9:47:00 EDT, Height, kg, 10/24/22 9:47:00 EDT, Dosing Weight Start Date: 01/28/23 Status: Ordered Start: 01-31-2022 losartan 50 mg oral tablet Dose : 50 mg = 1 tab(s), Oral, qDay, # 30 tab(s), 11 Refill(s), Pharmacy: [facility]/pharmacy #[id number], 163, cm, 01/31/22 13:45:00 EST, Height Start Date: 01/31/22 Status: Ordered metFORMIN hydrochloride 500 mg oral tablet (7 sources) Biguanide Start: 08-13-2023 take 2 tablets by mouth once daily in the morning MetFORMIN (Eqv-Glucophage XR) 500 mg oral tablet, EXTENDED RELEASE See Instructions, 2 tabs PO QAM and 1 tab QPM. Please dispense generic metformin ER NON-OSMOTIC, # 270 tab(s), 1 Refill(s), [id number], 162, cm, 06/24/23 10:04:00 EDT, Height, kg, 08/13/23 14:43:00 EDT, Dosing Weight Start Date: 08/13/23 Status: Ordered Start: 05-14-2023 End: 11-10-2023 MetFORMIN (Eqv-Glucophage XR ) 500 mg oral tablet, EXTENDED RELEASE Dose : 500 mg = 1 tab(s), Oral, BID, Please dispense generic metformin extended release NON-OSMOTIC, # 180 tab(s), 1 Refill(s), Pharmacy: [facility]/pharmacy #[id number], 163, cm, 03/11/23 14:57:00 EST, Height, kg, 03/11/23 14:58:00 EST, Dosing Weight Start Date: 05/14/23 Stop Date: 11/10/23 Status: Ordered Start: 12-27-2020 End: 11-23-2022 metFORMIN 500 mg oral tablet EXTENDED RELEASE Dose : 500 mg = 1 tab(s), Oral, BID, not osmotic tablets - please send whatever is preferred per insurance, # 180 tab(s), 3 Refill(s), [id number], 160.5, cm, 10/10/21 9:56:00 EDT, Height, kg, 10/10/21 9:56:00 EDT, Dosing Weight Start Date: 11/28/21 Stop Date: 11/23/22 Status: Ordered take 1 tablet by pawan th twice daily at mealtime metFORMIN (GLUCOPHAGE) 500 MG tablet Take 500 mg by mouth 2 times daily (with meals) 0 Active simvastatin 10 mg oral tablet (7 sources) HMG-CoA Reductase Inhibitor Start: 10-28-2023 simvastatin 10 mg or al tablet Dose : 10 mg = 1 tab(s), Oral, qHS, # 90 tab(s), 3 Refill(s), [id number], 160, cm, 10/28/23 14:12:00 EDT, Height, kg, 10/28/23 14:12:00 EDT, Dosing Weight Start Date: 10/28/23 Status: Ordered Start: 10-24-2022 simvastatin 10 mg oral tablet Dose : 10 mg = 1 tab(s), Oral, qHS, # 90 tab(s), 3 Refill(s), [id number], 163.5, cm, 10/24/22 9:47:00 EDT, Height, kg, 10/24/22 9:47:00 EDT, Dosing Weight Start Date: 10/24/22 Status: Ordered Start: 10-10-2021 simvastatin 10 mg oral tablet Dose : 10 mg = 1 tab(s), Oral, qHS, # 90 tab(s), 3 Refill(s), [id number], 160.5, cm, 10/10/21 9:56:00 EDT, Height, kg, 10/10/21 9:56:00 EDT, Dosing Weight Start Date: 10/10/21 Status: Ordered Start: 10-19-2020 simvastatin 10 mg oral tablet Dose : 10 mg = 1 tab(s), Oral, qHS, # 90 tab(s), 3 Refill(s), [id number], 160.5, cm, 09/07/20 8:21:00 EDT, Height, kg, 09/07/20 8:21:00 EDT, Dosing Weight Start Date: 10/19/20 Status: Ordered take 1 tablet by pawan th once daily simvastatin (ZOCOR) 10 MG tablet Take 10 mg by mouth nightly 0 Active traMADol hydrochloride 50 mg oral tablet (20 sources) Opioid Agonist Start: 08-09-2016 take 1 tablet by mouth every six hours as needed for pain Tramadol 50 MG tablet Active 50 mg PO EVERY 6 HOURS NEEDED as needed for Pain 60 August 12, 2016 12:00am 1-2 po q6hr prn pain Completed/Discontinued Medications Medication Drug Class(es) Dates Sig (Normalized) Sig (Original) 1 ml denosumab 60 mg/ml prefilled syringe (4 sources) RANK Ligand Inhibitor Start: 11-04-2023 Prolia 60 mg/mL subcutaneous solution Dose : 60 mg = 1 mL, Subcutaneous, q6mo, Osteporosis M81.0, # 1 mL, 1 Refill(s), Osteoporosis Start Date: 11/04/23 Status: Ordered Start: 05-20-2023 Prolia 60 mg/m L subcutaneous solution Dose : 60 mg = 1 mL, Subcutaneous, q6mo, Osteporosis M81.0, # 1 mL, 1 Refill(s), Osteoporosis Start Date: 05/20/23 Status: Ordered Start: 08-14-2021 Prolia 60 mg/m L subcutaneous solution Dose : 60 mg = 1 mL, Subcutaneous, q6mo, # 1 mL, 1 Refill(s) Start Date: 08/14/21 Status: Ordered Start: 02-01-2021 Prolia 60 mg/m L subcutaneous solution Dose : 60 mg = 1 mL, Subcutaneous, q6mo, # 1 mL, 1 Refill(s) Start Date: 02/01/21 Status: Ordered fluticasone propionate 0.05 mg/actuat metered dose nasal spray (1 source) Corticosteroid Start: 06-24-2023 End: 09-22-2023 Flonase 50 mcg/inh nasal spray 50 mcg Dose = 1 spray(s), Intranasal, qDay, # 16 gram(s), 2 Refill(s), Pharmacy: [facility]/pharmacy #[id number], 162, cm, 06/24/23 10:04:00 EDT, Height, kg, 04/23/24 10:04:00 EDT, Dosing Weight Start Date: 06/24/23 Stop Date: 09/22/23 Status: Ordered Prolia 60 mg/mL subcutaneous solution (2 sources) Start: 02-01-2021 Prolia 60 mg/m L subcutaneous solution Dose : 60 mg = 1 mL, Subcutaneous, q6mo, # 1 mL, 1 Refill(s) Start Date: 02/01/21 Status: Ordered Problems Active Problems Problem Classification Problem Date Documented Date Episodic/Chronic Adjustment disorders (2 sources) Grief finding 04-14-2022 Chronic Allergic reactions (1 source) Allergic condition 06-24-2023 Episodic Anxiety disorders (8 sources) Anxiety; Translations: [Mixed anxiety and depressive disorder] 10-25-2020 Chronic Complications of surgical procedures or medical care (1 source) Postprocedural hypothyroidism; Translations: [Postprocedural hypothyroidism] Onset: 5 Chronic Diabetes mellitus with complications (1 source) Type 2 diabetes mellitus with hyperglycemia; Translations: [Type 2 diabetes mellitus with hyperglycemia] Onset: 5 Chronic Diabetes mellitus without complication (9 sources) Diabetes mellitus; Translations: [Type 2 diabetes mellitus without complications] Onset: 4 10-05-2018 Chronic Disorders of lipid metabolism (6 sources) Hypercholesterolemia 10-05-2018 Chronic Essential hypertension (6 sources) Hypertensive disorder 07-08-2019 Chronic Nonmalignant breast conditions (1 source) Pain of breast 10-29-2023 Episodic Osteoporosis (6 sources) Osteoporosis 10-25-2020 Chronic Other nutritional; endocrine; and metabolic disorders (1 source) Hypercalcemia 11-10-2023 Chronic Other nutritional; endocrine; and metabolic disorders (1 source) Hypercalcemia; Translations: [Hypercalcemia] Onset: 4 Chronic Other nutritional; endocrine; and metabolic disorders (2 sources) History of nutritional deficiency 10-24-2022 Episodic Other upper respiratory infections (1 source) Acute maxillary sinusitis 03-11-2023 Episod ic Screening and history of mental health and substance abuse codes (1 source) Tobacco use and exposure - finding 06-24-2023 Chronic Syncope (1 source) Syncope; Translations: [Syncope, unspecified syncope type] Episodic Thyroid disorders (8 sources) Hypothyroidism; Translations: [Hypothyroidism, unspecified] Onset: 4 10-05-2018 Chronic Unclassified (20 sources) Patient encounter status 09-07-2020 Past or Other Problems Problem Classification Problem Date Documented Da te Episodic/Chronic Other nutritional; endocrine; and metabolic disorders (1 source) Abnormal weight loss; Translations: [Abnormal weight loss] Onset: 03-01-2024 Episodic Other screening for suspected conditions (not mental disorders or infectious disease) (1 source) Encounter for screening mammogram for malignant neoplasm of breast; Translations: [Encounter for screening mammogram for malignant neoplasm of breast] Onset: 12-25-2023 Episodic Results Test Name Value Interpretation Reference Range Facility Echo Completeon 09-09-2024 Echo Complete [facility] [address] [place] [address] Echo Complete 09/09/24 0815 MR#: [id number] Acct: [id number] Name: TESS RUDOLPH Rep #: [id number] : 1955 [id number] From: Jody Conn MD Attending Dr: WALLACE SEWELL Status: REG CLI Ordering Dr: WALLACE SEWELL Date: 09/09/24 Location: [facility] Sex: F C Admitted: Reason For Study Reason For Study: DM Procedure This was a 2D Doppler, Color Flow transthoracic echocardiogram. Exam performed in department. Left Ventricle Left ventricular systolic function is normal. The LV ejection fraction is 60 %. Stage 1 diastolic dysfunction. No regional wall motion abnormalities noted. Atria Normal left atrium. Normal right atrium. Normal atrial septum. Mitral Valve Trivial mitral valve insufficiency. Tricuspid Valve The tricuspid valve is not well visualized. Unable to estimate RV systolic pressure due to insufficient tricuspid regurgitant envelope. Aortic Valve Trisinus/trileaflet aortic valve. Great Vessels Inferior vena cava collapse with respiration. Normal inferior vena cava. MMode/2D Measurements Calculations LVIDd: 4.4 cm IVSd: 0.86 cm Ao root diam: 3.3 cm LVIDs: 3.4 cm LVPWd: 0.73 cm RVDd: 3.6 cm FS: 23.1 % LAV(MOD-bp): 42.5 ml SV(MOD-sp4): 52.5 ml LVAd ap4: 28.7 cm2 LAV(MOD-bp) Indexed: 27.8 ml/m2 LVLd ap4: 7.5 cm SI(MOD-sp4): 34.4 ml/m2 LAV(MOD-sp2): 39.3 ml EDV(MOD-sp4): 91.2 ml LAV(MOD-sp4): 42.8 ml EDV(sp4-el): 93.4 ml LVAs ap4: 16.7 cm2 LVLs ap4: 6.2 cm ESV(MOD-sp4): 38.7 ml ESV(sp4-el): 38.4 ml EF(MOD-sp4): 57.6 % EF(sp4-el): 58.9 % SV(sp4-el): 55.0 ml LA dimension(2D): 3.2 cm LA A4 area: 16.1 cm2 RA A4 area: 9.2 cm2 Time Measurements MV dec time: 0.28 sec Doppler Measurements Calculations MV E max adriel: 48.6 cm/sec Lat Peak E' Adriel: 7.1 cm/sec Med Peak E' Adriel: 3.7 cm/sec MV A max adriel: 66.6 cm/sec E/E' lat: 6.9 E/E' med: 13.3 MV E/A: 0.73 MV V2 max: 72.5 cm/sec Ao V2 max: 107.6 cm/sec MV max P.1 mmHg MV dec slope: 178.9 cm/sec2 Ao max P.6 mmHg MV V2 mean: 42.7 cm/sec Ao V2 mean: 79.0 cm/sec MV mean P.80 mmHg Ao mean P.8 mmHg MV V2 VTI: 28.9 cm Ao V2 VTI: 26.9 cm AV (velocity ratio): 0.72 LV V1 max: 83.5 cm/sec MR max adriel: 634.8 cm/sec PA V2 max: 71.7 cm/sec LV V1 max P.8 mmHg MR max P.2 mmHg PA V2 mean: 54.7 cm/sec LV V1 mean P.7 mmHg MR mean adriel: 471.4 cm/sec LV V1 mean: 61.0 cm/sec MR mean P.0 mmHg LV V1 VTI: 19.4 cm MR VTI: 260.3 cm ECHO/Echo Complete Interpretation Summary Left ventricular systolic function is normal. The LV ejection fraction is 60 %. Ordering Physician: WALLACE SEWELL Referring Physician: WALLACE SEWELL Performed By: Chika Borrego RCS 09/09/24 1531 Date Jody Conn MD CC: BRENDA Dean; WALLACE SEWELL Date Dictated: 09/09/24814 Date Transcribed: 09/09/241530 Developer Support Engineer: Signed Normal [facility] Echocardiogram study reportO rdered By: Jody Conn on 09-09-2024 Study report [facility] [address] [place] [address] Echo Complete 09/09/24814 MR#: [id number] Acct: [id number] Name: TESS RUDOLPH Rep #:[id number] : 1955 68 From: Jody Mason Attending Dr: WALLACE SEWELL Sta tus: REG CLI Ordering Dr: WALLACE SEWELL Date: 09/09/24 Location: [facility] Sex: F C Admitted: Reason For Study Reason For Study: DM Procedure This was a 2D Doppler, Color Flow transthoracic echocardiogram. Exam performed in department. Left Ventricle Left ventricular systolic function is normal. The LV ejection fraction is 60 %. Stage 1 diastolic dysfunction. No regional wall motion abnormalities noted. Atria Normal left atrium. Normal right atrium. Normal atrial septum. Mitral Valve Trivial mitral valve insufficiency. Tricuspid Valve The tricuspid valve is not well visualized. Unable to estimate RV systolic pressure due to insufficient tricuspid regurgitant envelope. Aortic Valve Trisinus/trileaflet aortic valve. Great Vessels Inferior vena cava collapse with respiration. Normal inferior vena cava. MMode/2D Measurements & Calculations LVIDd: 4.4 cm IVSd: 0.86 cm Ao root diam: 3.3 cm LVIDs: 3.4 cm LVPWd: 0.73 cm RVDd: 3.6 cm FS: 23.1 % LAV(MOD-bp): 42.5 ml SV(MOD-sp4): 52.5 ml LVAd ap4: 28.7 cm2 LAV(MOD-bp) Indexed: 27.8 ml/m2 LVLd ap4: 7.5 cm SI(MOD-sp4): 34.4 ml/m2 LAV(MOD-sp2): 39.3 ml EDV(MOD-sp4): 91.2 ml LAV(MOD-sp4): 42.8 ml EDV(sp4-el): 93.4 ml LVAs ap4: 16.7 cm2 LVLs ap4: 6.2 cm ESV(MOD-sp4): 38.7 ml ESV(sp4-el): 38.4 ml EF(MOD-sp4): 57.6 % EF(sp4-el): 58.9 % SV(sp4-el): 55.0 ml LA dimension(2D): 3.2 cm LA A4 area: 16.1 cm2 RA A4 area: 9.2 cm2 Time Measurements MV dec time: 0.28 sec Doppler Measurements & Calculations MV E max adriel: 48.6 cm/sec Lat Peak E' Adriel: 7.1 cm/sec Med Peak E' Adriel: 3.7 cm/sec MV A max adriel: 66.6 cm/sec E/E' lat: 6.9 E/E' med: 13.3 MV E/A: 0.73 MV V2 max: 72.5 cm/sec Ao V2 max: 107.6 cm/sec MV max P.1 mmHg MV dec slope: 178.9 cm/sec2 Ao max P.6 mmHg MV V2 mean: 42.7 cm/sec Ao V2 mean: 79.0 cm/sec MV mean P.80 mmHg Ao mean P.8 mmHg MV V2 VTI: 28.9 cm Ao V2 VTI: 26.9 cm AV (velocity ratio): 0.72 LV V1 max: 83.5 cm/sec MR max adriel: 634.8 cm/sec PA V2 max: 71.7 cm/sec LV V1 max P.8 mmHg MR max P.2 mmHg PA V2 mean: 54.7 cm/sec LV V1 mean P.7 mmHg MR mean adriel: 471.4 cm/sec LV V1 mean: 61.0 cm/sec MR mean P.0 mmHg LV V1 VTI: 19.4 cm MR VTI: 260.3 cm ECHO/Echo Complete Interpretation Summary Left ventricular systolic function is normal. The LV ejection fraction is 60 %. Ordering Physician: WALLACE SEWELL Referring Physician: WALLACE SEWELL Performed By: Chika Borrego RCS 09/09/24 153 Date _ Jody Conn MD CC: BRENDA Dean; WALLACE SEWELL ~ Date Dictated: 09/09/24814 Date Transcribed: 09/09/241530 Developer Support Engineer: Signed [facility] TSH DL <= 0.005 mIU/L Qnon 0 09-08-2024 TSH Qn 3.590 uIU/mL 0.300-4.200 [facility] Thyroid Stim Hormone (TSH)on 09-08-2024 TSH 3.590 uIU/mL Normal 0.300-4.200 [facility] Comment on above: Performed By: #### L [phone] #### [facility] Laboratory [facility] [place], [address] Anion gap in Serum or Plasma on 07-16-2024 Anion gap [Moles/Vol] 10 mmol/L 07-15 [facility] BUN/creatinine ratioon 07-16 Urea nitrogen/Creatinine [Mass ratio] 18.7 mg/mg 10-20 [facility] Bilirubin, totalon Bilirubin [Mass/Vol] 0.25 mg/dL 0.00-1.30 [facility] Calculated very low density lipoprotein (VLDL) cholesterol measurementon 07-16-2024 Calculated very low density lipoprotein (VLDL) cholesterol measurement 11 mg/dL 5-40 [facility] Carbon dioxide, total [Moles /volume] in Central venous bloodon 07-16-2024 CO2 [Moles/Vol] 24.3 mmol/L 21.0-32.0 [facility] Chloride assayon 07-16-2024 Chloride [Moles/Vol] 104 mmol/L 98-108 [facility] Comprehensive Metabolic Prof ilon 07-16-2024 Albumin [Mass/Vol] 4.1 g/dL Normal 3.4-4.8 [facility] Comment on above: Performed By: #### L 506.1000, L501.6710, L501.9520, L500.4100, L509.1000, L101.9900, L501.9985, L100.0500, L500.4050, L506.0400 #### [facility] [address] [facility] [place], [place], [id number] Albumin/Globulin [Mass ratio] 1.5 {ratio} Normal 0.9-2.4 [facility] Comment on above: Performed By: #### L 506.1000, L501.6710, L501.9520, L500.4100, L509.1000, L101.9900, L501.9985, L100.0500, L500.4050, L506.0400 #### [facility] [address] [place], [place], [id number] ALK PHOS 51 U/L Normal 35-104 [facility] Comment on above: Performed By: #### L 506.1000, L501.6710, L501.9520, L500.4100, L509.1000, L101.9900, L501.9985, L100.0500, L500.4050, L506.0400 #### [facility] [address] [place], [address] ALT [Catalytic activity/Vol] 27 U/L Normal <=34 [facility] Comment on above: Performed By: #### L 506.1000, L501.6710, L501.9520, L500.4100, L509.1000, L101.9900, L501.9985, L100.0500, L500.4050, L506.0400 #### [facility] [address] [place], [address] AST [Catalytic activity/Vol] 25 U/L Normal <=31 [facility] Comment on above: Performed By: #### L 506.1000, L501.6710, L501.9520, L500.4100, L509.1000, L101.9900, L501.9985, L100.0500, L500.4050, L506.0400 #### [facility] [address] [place], [place], [phone] Bilirubin [Mass/Vol] 0.25 mg/dL Normal 0.00-1.30 [facility] Comment on above: Performed By: #### L 506.1000, L501.6710, L501.9520, L500.4100, L509.1000, L101.9900, L501.9985, L100.0500, L500.4050, L506.0400 #### [facility] [address] [place], [address] BUN/CRE 18.7 RATIO Normal 10-20 [facility] Comment on above: Performed By: #### L 506.1000, L501.6710, L501.9520, L500.4100, L509.1000, L101.9900, L501.9985, L100.0500, L500.4050, L506.0400 #### [facility] [address] [place], [address] Calcium [Mass/Vol] 9.6 mg/dL Normal 7.6-11.0 [facility] Comment on above: Performed By: #### L 506.1000, L501.6710, L501.9520, L500.4100, L509.1000, L101.9900, L501.9985, L100.0500, L500.4050, L506.0400 #### [facility] [address] [place], [place], [phone] (280) Chloride [Moles/Vol] 104 mmol/L Normal 98-108 [facility] Comment on above: Performed By: #### L 506.1000, L501.6710, L501.9520, L500.4100, L509.1000, L101.9900, L501.9985, L100.0500, L500.4050, L506.0400 #### [facility] [address] [place], [place], [phone] (005) CO2 [Moles/Vol] 24.3 mmol/L Normal 21.0-32.0 [facility] Comment on above: Performed By: #### L 506.1000, L501.6710, L501.9520, L500.4100, L509.1000, L101.9900, L501.9985, L100.0500, L500.4050, L506.0400 #### [facility] [address] [facility] [address] [place], [address] Creatinine [Mass/Vol] 0.97 mg/dL Normal 0.70-1.20 [facility] Comment on above: Performed By: #### L 506.1000, L501.6710, L501.9520, L500.4100, L509.1000, L101.9900, L501.9985, L100.0500, L500.4050, L506.0400 #### [facility] [address] [place], [place], [id number] GAP 10 Normal 5-15 [facility] Comment on above: Performed By: #### L 506.1000, L501.6710, L501.9520, L500.4100, L509.1000, L101.9900, L501.9985, L100.0500, L500.4050, L506.0400 #### [facility] [address] [place], [address] (353) GFR/1.73 sq M.predicted among non-blacks MDRD (S/P/Bld) [Vol rate/Area] 64 mL/min/{1.73_m2} Normal >60 [facility] Comment on above: Result Comment: mL/m in/1.73m2 CKD-EPI Creatinine Equation (2020) Performed By: #### L 506.1000, L501.6710, L501.9520, L500.4100, L509.1000, L101.9900, L501.9985, L100.0500, L500.4050, L506.0400 #### [facility] [address] [place], [address] Globulin (S) [Mass/Vol] 2.8 g/dL Normal 2.2-4.2 [facility] Comment on above: Performed By: #### L 506.1000, L501.6710, L501.9520, L500.4100, L509.1000, L101.9900, L501.9985, L100.0500, L500.4050, L506.0400 #### [facility] [address] [place], [place], [phone] (354) Glucose [Mass/Vol] 138 mg/dL High 70-99 [facility] Comment on above: Performed By: #### L 506.1000, L501.6710, L501.9520, L500.4100, L509.1000, L101.9900, L501.9985, L100.0500, L500.4050, L506.0400 #### [facility] [address] [place], [address] Potassium [Moles/Vol] 4.6 mmol/L Normal 3.3-5.1 [facility] Comment on above: Performed By: #### L 506.1000, L501.6710, L501.9520, L500.4100, L509.1000, L101.9900, L501.9985, L100.0500, L500.4050, L506.0400 #### [facility] [address] [place], [address] Sodium [Moles/Vol] 138 mmol/L Normal 133-145 [facility] Comment on above: Performed By: #### L 506.1000, L501.6710, L501.9520, L500.4100, L509.1000, L101.9900, L501.9985, L100.0500, L500.4050, L506.0400 #### [facility] [address] [place], [address] T PROT 6.9 g/dL Normal 5.9-8.4 [facility] Comment on above: Performed By: #### L 506.1000, L501.6710, L501.9520, L500.4100, L509.1000, L101.9900, L501.9985, L100.0500, L500.4050, L506.0400 #### [facility] [address] [place], [address] Urea nitrogen [Mass/Vol] 18 mg/dL Normal 4-19 [facility] Comment on above: Performed By: #### L 506.1000, L501.6710, L501.9520, L500.4100, L509.1000, L101.9900, L501.9985, L100.0500, L500.4050, L506.0400 #### [facility] [address] [place], [place], [phone] Glomerular filtration rate ( GFR) estimation/1.73 sq m using serum, plasma, or whole bon 07-16-2024 GFR/1.73 sq M.predicted among non-blacks MDRD (S/P/Bld) [Vol rate/Area] 64 mL/min/{1.73_m2} >60 [facility] Comment on above: mL/min/1.73m2 CKD-EP I Creatinine Equation (2020) Hemoglobin A1con 07-16-2024 HbA1c (Bld) [Mass fraction] 7.0 % High <=5.6 [facility] Comment on above: Result Comment: Norm al < 5.7 % Prediabetic 5.7 - 6.4 % Diabetic >or= 6.5 % Please note range changes. Performed By: #### L 506.1000, L501.6710, L501.9520, L500.4100, L509.1000, L101.9900, L501.9985, L100.0500, L500.4050, L506.0400 #### [facility] [address] [place], [place], [phone] Hemoglobin A1c percentageon 07-16-2024 HbA1c (Bld) [Mass fraction] 7.0 % High <5.7 [facility] Comment on above: Normal < 5.7 % Predi abetic 5.7 - 6.4 % Diabetic >or= 6.5 % Please note range changes. LDL calc ser/plason 07-17-19 25 Cholesterol in LDL [Mass/Vol] 59 mg/dL [facility] Comment on above: Dwhhgyfugr=023-954 m g/dL & Higher Cqle=587 mg/dL or greater Laboratory - Chemistry and C hemistry - challengeon 07-16-2024 AST [Catalytic activity/Vol] 25 U/L <32 [facility] Lipid Profileon 07-16-2024 CHOL:HDL 1.71 Normal [facility] Comment on above: Performed By: #### L 506.1000, L501.6710, L501.9520, L500.4100, L509.1000, L101.9900, L501.9985, L100.0500, L500.4050, L506.0400 #### [facility] [address] [place], [place], [phone] (826) Cholesterol [Mass/Vol] 170 mg/dL Normal <=200 [facility] Comment on above: Result Comment: Chol esterol level, Desirable <200 mg/dL Borderline high cholesterol 200-239 mg/dL High cholesterol >=240 mg/dL Recommendations of the NCEP Adult Treatment Panel for the following risk-cutoff thresholds for the [place] population. Performed By: #### L 506.1000, L501.6710, L501.9520, L500.4100, L509.1000, L101.9900, L501.9985, L100.0500, L500.4050, L506.0400 #### [facility] [address] [place], [place], [phone] (264) Cholesterol in HDL [Mass/Vol] 100 mg/dL Normal [facility] Comment on above: Result Comment: Deanna onal Cholesterol Education Program (NCEP) guidelines: <40 mg/dL: Low HDL-cholesterol (major risk factor for CHD) >= 60 mg/dL: High HDL-cholesterol (negative risk factor for CHD) HDL-cholesterol is affected by a number of factors, e.g. smoking, exercise, hormones, sex and age. Performed By: #### L 506.1000, L501.6710, L501.9520, L500.4100, L509.1000, L101.9900, L501.9985, L100.0500, L500.4050, L506.0400 #### [facility] [address] [place], [place], [phone] (720) Cholesterol in LDL [Mass/Vol] 59 mg/dL Normal [facility] Comment on above: Result Comment: Bord nxxbnv=453-437 mg/dL Higher Qvuw=459 mg/dL or greater Performed By: #### L 506.1000, L501.6710, L501.9520, L500.4100, L509.1000, L101.9900, L501.9985, L100.0500, L500.4050, L506.0400 #### [facility] [address] [place], [place], [phone] (171) Cholesterol in VLDL [Mass/Vol] 11 mg/dL Normal 5-40 [facility] Comment on above: Performed By: #### L 506.1000, L501.6710, L501.9520, L500.4100, L509.1000, L101.9900, L501.9985, L100.0500, L500.4050, L506.0400 #### [facility] [address] [place], [address] Triglyceride [Mass/Vol] 55 mg/dL Normal [facility] Comment on above: Result Comment: The drugs N-Acetylcysteine and Metamizole may falsely depress this assay. Normal range: <150 mg/dL Borderline High: 150-199 mg/dL High: 200-499 mg/dL Very High: >500 mg/dL Performed By: #### L 506.1000, L501.6710, L501.9520, L500.4100, L509.1000, L101.9900, L501.9985, L100.0500, L500.4050, L506.0400 #### [facility] [address] [place], [place], [phone] Potassium measurement (mass/ volume)on 07-16-2024 Potassium (Unsp spec) [Mass/Vol] 4.6 mmol/L 3.3-5.1 [facility] Screening total cholesterol/ high density lipoprotein (HDL) cholesterol ratioon 07-16-2024 Cholesterol.total/Chol esterol in HDL [Mass ratio] 1.71 {ratio} [facility] Serum creatinine measurement (mass/volume)on 07-16-2024 Creatinine [Mass/Vol] 0.97 mg/dL 0.70-1.20 [facility] Serum globulin measurementon 07-16-2024 Globulin (S) [Mass/Vol] 2.8 g/dL 2.2-4.2 [facility] Serum glucose measurement (m ass/volume)on 07-16-2024 Glucose [Mass/Vol] 138 mg/dL High 70-99 [facility] Serum or plasma alanine cherry otransferase (ALT) measurementon 07-16-2024 ALT [Catalytic activity/Vol] 27 U/L <35 [facility] Serum or plasma albumin alexander urement (mass/volume)on 07-16-2024 Albumin [Mass/Vol] 4.1 g/dL 3.4-4.8 [facility] Serum or plasma albumin/glob ulin mass ratioon 07-16-2024 Albumin/Globulin [Mass ratio] 1.5 {ratio} 0.9-2.4 [facility] Serum or plasma alkaline melony sphatase measurementon 07-16-2024 ALP [Catalytic activity/Vol] 51 U/L 35-104 [facility] Serum or plasma calcium alexander urement (mass/volume)on 07-16-2024 Calcium [Mass/Vol] 9.6 mg/dL 7.6-11.0 [facility] Serum or plasma cholesterol in HDL measurement (mass/volume)on 07-16-2024 Cholesterol in HDL [Mass/Vol] 100 mg/dL >40 [facility] Comment on above: National Cholesterol Education Program (NCEP) guidelines:<40 mg/dL: Low HDL-cholesterol (major risk factor for CHD)>= 60 mg/dL: High HDL-cholesterol (negative risk factor for CHD)HDL-cholesterol is affected by a number of factors, e.g. smoking, exercise, hormones, sex and age. Serum or plasma cholesterol measurement (mass/volume)on 07-16-2024 Cholesterol [Mass/Vol] 170 mg/dL <201 [facility] Comment on above: Cholesterol level, D esirable <200 mg/dLBorderline high cholesterol 200-239 mg/dLHigh cholesterol >=240 mg/dLRecommendations of the NCEP Adult Treatment Panel for the following risk-cutoff thresholds for the [place] population. Serum or plasma urea nitroge n measurement (mass/volume)on 07-16-2024 Urea nitrogen [Mass/Vol] 18 mg/dL 4-19 [facility] Sodium levelon 07-16-2024 Sodium [Moles/Vol] 138 mmol/L 133-145 [facility] TSH DL <= 0.005 mIU/L Qnon 0 5-16-2025 TSH Qn 6.030 uIU/mL High 0.300-4.200 [facility] Thyroid Stim Hormone (TSH)on 07-16-2024 TSH 6.030 uIU/mL High 0.300-4.200 [facility] Comment on above: Performed By: #### L 506.1000, L501.6710, L501.9520, L500.4100, L509.1000, L101.9900, L501.9985, L100.0500, L500.4050, L506.0400 #### [facility] [address] [place], [place], [phone] Total proteinon 07-16-2024 Protein [Mass/Vol] 6.9 g/dL 5.9-8.4 [facility] Triglycerides measurementon 07-16-2024 Triglyceride [Mass/Vol] 55 mg/dL <199 [facility] Comment on above: The drugs N-Acetylcy steine and Metamizole may falsely depress this assay. Normal range: <150 mg/dLBorderline High: 150-199 mg/dLHigh: 200-499 mg/dLVery High: >500 mg/dL Anion gap in Serum or Plasma Ordered By: Himanshu Reyes on 05-31-2024 Anion gap [Moles/Vol] 11 mmol/L 5-15 [facility] BUN/creatinine ratioOrdered By: Himanshu Reyes on 05-31-2024 Urea nitrogen/Creatinine [Mass ratio] 17.9 mg/mg 10-20 [facility] Bilirubin, totalOrdered By: Himanshu Reyes on 05-31-2024 Bilirubin [Mass/Vol] 0.17 mg/dL 0.00-1.30 [facility] Carbon dioxide, total [Moles /volume] in Central venous bloodOrdered By: Himanshu Reyes on 05-31-2024 CO2 [Moles/Vol] 20.8 mmol/L Low 21.0-32.0 [facility] Chloride assayOrdered By: Leoncio Reyes on 05-31-2024 Chloride [Moles/Vol] 103 mmol/L 98-108 [facility] Comprehensive Metabolic Prof ilon 05-31-2024 Albumin [Mass/Vol] 4.3 g/dL Normal 3.4-4.8 [facility] Comment on above: Performed By: #### L 506.1000, L501.6710, L501.9520, L500.4100, L509.1000, L101.9900, L501.9985, L100.0500, L500.4050, L506.0400 #### [facility] [address] [place], [place], [phone] Albumin/Globulin [Mass ratio] 1.6 {ratio} Normal 0.9-2.4 [facility] Comment on above: Performed By: #### L 506.1000, L501.6710, L501.9520, L500.4100, L509.1000, L101.9900, L501.9985, L100.0500, L500.4050, L506.0400 #### [facility] [address] [place], [place], [id number] ALK PHOS 60 U/L Normal 35-104 [facility] Comment on above: Performed By: #### L 506.1000, L501.6710, L501.9520, L500.4100, L509.1000, L101.9900, L501.9985, L100.0500, L500.4050, L506.0400 #### [facility] [address] [place], [address] ALT [Catalytic activity/Vol] 31 U/L Normal <=34 [facility] Comment on above: Performed By: #### L 506.1000, L501.6710, L501.9520, L500.4100, L509.1000, L101.9900, L501.9985, L100.0500, L500.4050, L506.0400 #### [facility] [address] [place], [address] (590) AST [Catalytic activity/Vol] 28 U/L Normal <=31 [facility] Comment on above: Performed By: #### L 506.1000, L501.6710, L501.9520, L500.4100, L509.1000, L101.9900, L501.9985, L100.0500, L500.4050, L506.0400 #### [facility] [address] [place], [address] Bilirubin [Mass/Vol] 0.17 mg/dL Normal 0.00-1.30 [facility] Comment on above: Performed By: #### L 506.1000, L501.6710, L501.9520, L500.4100, L509.1000, L101.9900, L501.9985, L100.0500, L500.4050, L506.0400 #### [facility] [address] [place], [address] BUN/CRE 17.9 RATIO Normal 10-20 [facility] Comment on above: Performed By: #### L 506.1000, L501.6710, L501.9520, L500.4100, L509.1000, L101.9900, L501.9985, L100.0500, L500.4050, L506.0400 #### [facility] [address] [place], [address] Calcium [Mass/Vol] 9.6 mg/dL Normal 7.6-11.0 [facility] Comment on above: Performed By: #### L 506.1000, L501.6710, L501.9520, L500.4100, L509.1000, L101.9900, L501.9985, L100.0500, L500.4050, L506.0400 #### [facility] [address] [place], [address] Chloride [Moles/Vol] 103 mmol/L Normal 98-108 [facility] Comment on above: Performed By: #### L 506.1000, L501.6710, L501.9520, L500.4100, L509.1000, L101.9900, L501.9985, L100.0500, L500.4050, L506.0400 #### [facility] [address] [place], [place], [phone] (722) CO2 [Moles/Vol] 20.8 mmol/L Low 21.0-32.0 [facility] Comment on above: Performed By: #### L 506.1000, L501.6710, L501.9520, L500.4100, L509.1000, L101.9900, L501.9985, L100.0500, L500.4050, L506.0400 #### [facility] [address] [place], [place], [phone] (829) Creatinine [Mass/Vol] 0.84 mg/dL Normal 0.70-1.20 [facility] Comment on above: Performed By: #### L 506.1000, L501.6710, L501.9520, L500.4100, L509.1000, L101.9900, L501.9985, L100.0500, L500.4050, L506.0400 #### [facility] [address] [place], [place], [phone] (051) GAP 11 Normal 5-15 [facility] Comment on above: Performed By: #### L 506.1000, L501.6710, L501.9520, L500.4100, L509.1000, L101.9900, L501.9985, L100.0500, L500.4050, L506.0400 #### [facility] [address] [place], [place], [phone] (622) GFR/1.73 sq M.predicted among non-blacks MDRD (S/P/Bld) [Vol rate/Area] 76 mL/min/{1.73_m2} Normal >60 [facility] Comment on above: Result Comment: mL/m in/1.73m2 CKD-EPI Creatinine Equation (2020) Performed By: #### L 506.1000, L501.6710, L501.9520, L500.4100, L509.1000, L101.9900, L501.9985, L100.0500, L500.4050, L506.0400 #### [facility] [address] [place], [address] Globulin (S) [Mass/Vol] 2.7 g/dL Normal 2.2-4.2 [facility] Comment on above: Performed By: #### L 506.1000, L501.6710, L501.9520, L500.4100, L509.1000, L101.9900, L501.9985, L100.0500, L500.4050, L506.0400 #### [facility] [address] [place], [address] Glucose [Mass/Vol] 208 mg/dL High 70-99 [facility] Comment on above: Performed By: #### L 506.1000, L501.6710, L501.9520, L500.4100, L509.1000, L101.9900, L501.9985, L100.0500, L500.4050, L506.0400 #### [facility] [address] [place], [address] Potassium [Moles/Vol] 4.7 mmol/L Normal 3.3-5.1 [facility] Comment on above: Performed By: #### L 506.1000, L501.6710, L501.9520, L500.4100, L509.1000, L101.9900, L501.9985, L100.0500, L500.4050, L506.0400 #### [facility] [address] [place], [address] Sodium [Moles/Vol] 135 mmol/L Normal 133-145 [facility] Comment on above: Performed By: #### L 506.1000, L501.6710, L501.9520, L500.4100, L509.1000, L101.9900, L501.9985, L100.0500, L500.4050, L506.0400 #### [facility] [address] [place], [place], [phone] (955) T PROT 7.0 g/dL Normal 5.9-8.4 [facility] Comment on above: Performed By: #### L 506.1000, L501.6710, L501.9520, L500.4100, L509.1000, L101.9900, L501.9985, L100.0500, L500.4050, L506.0400 #### [facility] [address] [facility] [address] [facility] [place], [place], [phone] (540) Urea nitrogen [Mass/Vol] 15 mg/dL Normal 4-19 [facility] Comment on above: Performed By: #### L 506.1000, L501.6710, L501.9520, L500.4100, L509.1000, L101.9900, L501.9985, L100.0500, L500.4050, L506.0400 #### [facility] [address] [facility] [address] [place], [place], [phone] GFR/1.73 sq M.predicted casey g non-blacks MDRD (S/P/Bld) [Vol rate/Area]Ordered By: Himanshu Reyes on 05-31-2024 Estimated GFR (MDRD) Non-Af Amer 76 >60 [facility] Comment on above: mL/min/1.73m2 CKD-EP I Creatinine Equation (2020) Glomerular filtration rate ( GFR) estimation/1.73 sq m using serum, plasma, or whole bOrdered By: Himanshu Reyes on 05-31-2024 GFR/1.73 sq M.predicted among non-blacks MDRD (S/P/Bld) [Vol rate/Area] 76 mL/min/{1.73_m2} >60 [facility] Comment on above: mL/min/1.73m2 CKD-EP I Creatinine Equation (2020) L506.1001on 05-31-2024 Vitamin D 25-OH 70.9 ng/mL Normal 30-100 [facility] Comment on above: Result Comment: Susie min D Status Deficiency: <20 ng/mL (50nmol/L) Insufficiency: 20-30 ng/mL (50-75 nmol/L) Sufficiency: 30-100 ng/mL (75-250 nmol/L) Toxicity: >100 ng/mL (>250 nmol/L) Performed By: #### L 506.1000, L501.6710, L501.9520, L500.4100, L509.1000, L101.9900, L501.9985, L100.0500, L500.4050, L506.0400 #### [facility] [address], [place], [id number] Laboratory - Chemistry and C hemistry - challengeOrdered By: Himanshu Reyes on 05-31-2024 AST [Catalytic activity/Vol] 28 U/L <32 [facility] Potassium (Unsp spec) [Mass/ Vol]Ordered By: Himanshu Reyes on 05-31-2024 Potassium [Moles/Vol] 4.7 mmol/L 3.3-5.1 [facility] Potassium measurement (mass/ volume)Ordered By: Himanshu Reyes on 05-31-2024 Potassium (Unsp spec) [Mass/Vol] 4.7 mmol/L 3.3-5.1 [facility] Serum creatinine measurement (mass/volume)Ordered By: Himanshu Reyes on 05-31-2024 Creatinine [Mass/Vol] 0.84 mg/dL 0.70-1.20 [facility] Serum globulin measurementOr dered By: Himanshu Reyes on 05-31-2024 Globulin (S) [Mass/Vol] 2.7 g/dL 2.2-4.2 [facility] Serum glucose measurement (m ass/volume)Ordered By: Himanshu Reyes on 05-31-2024 Glucose [Mass/Vol] 208 mg/dL High 70-99 [facility] Serum or plasma alanine cherry otransferase (ALT) measurementOrdered By: Himanshu Reyes on 05-31-2024 ALT [Catalytic activity/Vol] 31 U/L <35 [facility] Serum or plasma albumin alexander urement (mass/volume)Ordered By: Himanshu Reyes on 05-31-2024 Albumin [Mass/Vol] 4.3 g/dL 3.4-4.8 [facility] Serum or plasma albumin/glob ulin mass ratioOrdered By: Himanshu Reyes on 05-31-2024 Albumin/Globulin [Mass ratio] 1.6 {ratio} 0.9-2.4 [facility] Serum or plasma alkaline melony sphatase measurementOrdered By: Himanshu Reyes on 05-31-2024 ALP [Catalytic activity/Vol] 60 U/L 35-104 [facility] Serum or plasma calcium alexander urement (mass/volume)Ordered By: Himanshu Reyes on 05-31-2024 Calcium [Mass/Vol] 9.6 mg/dL 7.6-11.0 [facility] Serum or plasma urea nitroge n measurement (mass/volume)Ordered By: Himanshu Reyes on 05-31-2024 Urea nitrogen [Mass/Vol] 15 mg/dL 4-19 [facility] Sodium levelOrdered By: Marc Reyes on 05-31-2024 Sodium [Moles/Vol] 135 mmol/L 133-145 [facility] TSH DL <= 0.005 mIU/L QnOrde red By: Himanshu Reyes on 05-31-2024 Thyroid Stimulating Hormone (TSH) 4.980 uIU/mL High 0.300-4.200 [facility] TSH Qn 4.980 uIU/mL High 0.300-4.200 [facility] Thyroid Stim Hormone (TSH)on 05-31-2024 TSH 4.980 uIU/mL High 0.300-4.200 [facility] Comment on above: Performed By: #### L 506.1000, L501.6710, L501.9520, L500.4100, L509.1000, L101.9900, L501.9985, L100.0500, L500.4050, L506.0400 #### [facility] [address] [place], [address] Total proteinOrdered By: Dallas Reyes on 05-31-2024 Protein [Mass/Vol] 7.0 g/dL 5.9-8.4 [facility] Vitamin D, 25-hydroxyOrdered By: Himanshu Reyes on 05-31-2024 Vitamin D 25-Hydroxy 70.9 ng/mL 30-100 [facility] Comment on above: Vitamin D StatusDefi ciency: <20 ng/mL (50nmol/L)Insufficiency: 20-30 ng/mL (50-75 nmol/L)Sufficiency: 30-100 ng/mL (75-250 nmol/L)Toxicity: >100 ng/mL (>250 nmol/L) MALBRon 05-12-2024 U Creatinine 193.6 mg/dL Normal [facility] Comment on above: Performed By: #### M ALBR #### [address] [address] U Microalb 20.2 mg/L Normal [facility] Comment on above: Performed By: #### M ALBR #### [address] [address] U Ratio Alb/Cre 10 mg/G Normal 0-30 [facility] Comment on above: Performed By: #### M ALBR #### [address] [address] Serum or plasma thyroid stim ulating hormone (TSH) measurement (units/volume)Ordered By: Himanshu Reyes on 04-14-2024 TSH Qn 6.500 uIU/mL High 0.358-3.740 [facility] TSH QnOrdered By: Himanshu iqbal on 04-14-2024 Thyroid Stimulating Hormone (TSH) 6.500 uIU/mL High 0.358-3.740 [facility] Thyroid Stim Hormone (TSH)on 04-14-2024 TSH 6.500 uIU/mL High 0.358-3.740 [facility] Comment on above: Performed By: #### L 506.1000, L501.6710, L501.9520, L500.4100, L509.1000, L101.9900, L501.9985, L100.0500, L500.4050, L506.0400 #### [facility] [address], [address] 08-SU-Qiyupiu DOrdered By: Trista Reyes on 02-24-2024 Vitamin D 25-Hydroxy 71.0 ng/mL [facility] Comment on above: Vitamin D 25(OH) Sta tus Range Deficiency <20 ng/mL (50nmol/L) Insufficiency 20 - 30 ng/mL (50 - 75 nmol/L) Sufficiency 30 - 100 ng/mL (75 - 250 nmol/L) Toxicity >100 ng/mL (>250 nmol/L) Albumin to globulin ratioOrd ered By: Himanshu Reyes on 02-24-2024 Albumin/Globulin [Mass ratio] 1.1 {ratio} 0.9-2.4 [facility] Bilirubin, totalOrdered By: Himanshu Reyes on 02-24-2024 Bilirubin [Mass/Vol] 0.30 mg/dL 0.20-1.00 [facility] Comment on above: For patients on eltr ombopag therapy, use of [address] TBIL is not recommended. Blood urea nitrogen (BUN)/cr eatinine ratioOrdered By: Himanshu Reyes on 02-24-2024 Urea nitrogen/Creatinine [Mass ratio] 20.1 mg/mg High 10-20 [facility] Carbon dioxide measurementOr dered By: Himanshu Reyes on 02-24-2024 CO2 [Moles/Vol] 28.0 mmol/L 21.0-32.0 [facility] Chloride measurementOrdered By: Himanshu Reyes on 02-24-2024 Chloride [Moles/Vol] 108 mmol/L High 98-107 [facility] Comprehensive Metabolic Prof ilon 02-24-2024 Albumin [Mass/Vol] 3.9 g/dL Normal 3.2-5.0 [facility] Comment on above: Performed By: #### L 506.1000, L501.6710, L501.9520, L500.4100, L509.1000, L101.9900, L501.9985, L100.0500, L500.4050, L506.0400 #### [facility] [address] [place], [address] Albumin/Globulin [Mass ratio] 1.1 {ratio} Normal 0.9-2.4 [facility] Comment on above: Performed By: #### L 506.1000, L501.6710, L501.9520, L500.4100, L509.1000, L101.9900, L501.9985, L100.0500, L500.4050, L506.0400 #### [facility] [address] [facility] [place], [address] ALK P 42 U/L Low 45-117 [facility] Comment on above: Performed By: #### L 506.1000, L501.6710, L501.9520, L500.4100, L509.1000, L101.9900, L501.9985, L100.0500, L500.4050, L506.0400 #### [facility] [address] [place], [address] ALT [Catalytic activity/Vol] 26 U/L Normal 13-56 [facility] Comment on above: Performed By: #### L 506.1000, L501.6710, L501.9520, L500.4100, L509.1000, L101.9900, L501.9985, L100.0500, L500.4050, L506.0400 #### [facility] [address] [facility] [place], [address] AST [Catalytic activity/Vol] 13 U/L Low 15-37 [facility] Comment on above: Performed By: #### L 506.1000, L501.6710, L501.9520, L500.4100, L509.1000, L101.9900, L501.9985, L100.0500, L500.4050, L506.0400 #### [facility] [address] [place], [address] Bilirubin [Mass/Vol] 0.30 mg/dL Normal 0.20-1.00 [facility] Comment on above: Result Comment: For patients on eltrombopag therapy, use of [address] TBIL is not recommended. Performed By: #### L 506.1000, L501.6710, L501.9520, L500.4100, L509.1000, L101.9900, L501.9985, L100.0500, L500.4050, L506.0400 #### [facility] [address] [place], [place], [phone] ([phone]) BUN/CRE 20.1 RATIO High 10-20 [facility] Comment on above: Performed By: #### L 506.1000, L501.6710, L501.9520, L500.4100, L509.1000, L101.9900, L501.9985, L100.0500, L500.4050, L506.0400 #### [facility] [address] [place], [address] CA,Total 9.3 mg/dL Normal 8.5-10.1 [facility] Comment on above: Performed By: #### L 506.1000, L501.6710, L501.9520, L500.4100, L509.1000, L101.9900, L501.9985, L100.0500, L500.4050, L506.0400 #### [facility] [address] [place], [address] Chloride [Moles/Vol] 108 mmol/L High 98-107 [facility] Comment on above: Performed By: #### L 506.1000, L501.6710, L501.9520, L500.4100, L509.1000, L101.9900, L501.9985, L100.0500, L500.4050, L506.0400 #### [facility] [address] [place], [place], [phone] (554) CO2 [Moles/Vol] 28.0 mmol/L Normal 21.0-32.0 [facility] Comment on above: Performed By: #### L 506.1000, L501.6710, L501.9520, L500.4100, L509.1000, L101.9900, L501.9985, L100.0500, L500.4050, L506.0400 #### [facility] [address] [place], [address] (780) Creatinine [Mass/Vol] 0.90 mg/dL Normal 0.55-1.02 [facility] Comment on above: Result Comment: The validity of the calculated GFR GFRAA in patients over 70 years has not been determined. Clinical correlation is essential. Performed By: #### L 506.1000, L501.6710, L501.9520, L500.4100, L509.1000, L101.9900, L501.9985, L100.0500, L500.4050, L506.0400 #### [facility] [address] [place], [place], [phone] (993) EST GFR - AA 80 mL/min Normal >60 [facility] Comment on above: Result Comment: Afri can [place] GFR Calc Performed By: #### L 506.1000, L501.6710, L501.9520, L500.4100, L509.1000, L101.9900, L501.9985, L100.0500, L500.4050, L506.0400 #### [facility] [address] [place], [place], [phone] ([phone]) GAP 3 Low 5-15 [facility] Comment on above: Performed By: #### L 506.1000, L501.6710, L501.9520, L500.4100, L509.1000, L101.9900, L501.9985, L100.0500, L500.4050, L506.0400 #### [facility] [address] [place], [address] GFR/1.73 sq M.predicted among non-blacks MDRD (S/P/Bld) [Vol rate/Area] 66 mL/min/{1.73_m2} Normal >60 [facility] Comment on above: Result Comment: Non- GFR Calc Performed By: #### L 506.1000, L501.6710, L501.9520, L500.4100, L509.1000, L101.9900, L501.9985, L100.0500, L500.4050, L506.0400 #### [facility] [address] [place], [address] Globulin (S) [Mass/Vol] 3.5 g/dL Normal 2.2-4.2 [facility] Comment on above: Performed By: #### L 506.1000, L501.6710, L501.9520, L500.4100, L509.1000, L101.9900, L501.9985, L100.0500, L500.4050, L506.0400 #### [facility] [address] [place], [address] Glucose [Mass/Vol] 134 mg/dL High 74-106 [facility] Comment on above: Result Comment: Fast ing Glucose result greater than or equal to 126 mg/dL suggests DIABETES MELLITUS per A.D.A. criteria. Performed By: #### L 506.1000, L501.6710, L501.9520, L500.4100, L509.1000, L101.9900, L501.9985, L100.0500, L500.4050, L506.0400 #### [facility] [address] [place], [address] Potassium [Moles/Vol] 4.3 mmol/L Normal 3.5-5.1 [facility] Comment on above: Performed By: #### L 506.1000, L501.6710, L501.9520, L500.4100, L509.1000, L101.9900, L501.9985, L100.0500, L500.4050, L506.0400 #### [facility] [address] [place], [address] Sodium [Moles/Vol] 139 mmol/L Normal 136-145 [facility] Comment on above: Performed By: #### L 506.1000, L501.6710, L501.9520, L500.4100, L509.1000, L101.9900, L501.9985, L100.0500, L500.4050, L506.0400 #### [facility] [address] [place], [address] T PROT 7.4 g/dL Normal 6.4-8.2 [facility] Comment on above: Performed By: #### L 506.1000, L501.6710, L501.9520, L500.4100, L509.1000, L101.9900, L501.9985, L100.0500, L500.4050, L506.0400 #### [facility] [address] [place], [place], [phone] Urea nitrogen [Mass/Vol] 18 mg/dL Normal 7-18 [facility] Comment on above: Performed By: #### L 506.1000, L501.6710, L501.9520, L500.4100, L509.1000, L101.9900, L501.9985, L100.0500, L500.4050, L506.0400 #### [facility] [address] [place], [place], [id number] Direct serum free thyroxine (FT4) measurementOrdered By: Himanshu Reyes on 02-24-2024 Free T4 [Mass/Vol] 1.27 ng/dL 0.76-1.46 [facility] Estimated glomerular filtrat ion rate (GFR) AmericanOrdered By: Himanshu Reyes on 02-24-2024 Estimated GFR (MDRD) Amer 80 mL/min >60 [facility] Comment on above: GFR Calc Free T3on 02-24-2024 Free T3 [Mass/Vol] 2.2 pg/mL Normal 2.18-3.98 [facility] Comment on above: Performed By: #### L 506.1000, L501.6710, L501.9520, L500.4100, L509.1000, L101.9900, L501.9985, L100.0500, L500.4050, L506.0400 #### [facility] [address] [place], [address] Free [id number] By: Himanshu randhawa on 02-24-2024 Free Triiodothyronine (T3) pg/dL 2.2 pg/mL 2.18-3.98 [facility] Glomerular filtration rate ( GFR) estimationOrdered By: Himanshu Reyes on 02-24-2024 Estimated GFR (MDRD) Non-Af Amer 66 mL/min >60 [facility] Comment on above: Non- GFR Calc Glucose measurementOrdered B y: Himanshu Reyes on 02-24-2024 Glucose [Mass/Vol] 134 mg/dL High 74-106 [facility] Comment on above: Fasting Glucose resu lt greater than or equal to 126 mg/dL suggests DIABETES MELLITUS per A.D.A. criteria. Laboratory - Chemistry and C hemistry - challengeOrdered By: Himanshu Reyes on 02-24-2024 AST [Catalytic activity/Vol] 13 U/L Low 15-37 [facility] Potassium measurementOrdered By: Himanshu Reyes on 02-24-2024 Potassium [Moles/Vol] 4.3 mmol/L 3.5-5.1 [facility] Serum anion gap measurementO rdered By: Himanshu Reyes on 02-24-2024 Anion gap [Moles/Vol] 3 mmol/L Low 5-15 [facility] Serum globulin measurementOr dered By: Himanshu Reyes on 02-24-2024 Globulin (S) [Mass/Vol] 3.5 g/dL 2.2-4.2 [facility] Serum or plasma alanine cherry otransferase (ALT) measurementOrdered By: Himanshu Reyes on 02-24-2024 ALT [Catalytic activity/Vol] 26 U/L 13-56 [facility] Serum or plasma albumin alexander urement (mass/volume)Ordered By: Himanshu Reyes on 02-24-2024 Albumin [Mass/Vol] 3.9 g/dL 3.2-5.0 [facility] Serum or plasma alkaline melony sphatase measurementOrdered By: Himanshu Reyes on 02-24-2024 ALP [Catalytic activity/Vol] 42 U/L Low 45-117 [facility] Serum or plasma calcium alexander urement (mass/volume)Ordered By: Himanshu Reyes on 02-24-2024 Calcium [Mass/Vol] 9.3 mg/dL 8.5-10.1 [facility] Serum or plasma creatinine m easurement (mass/volume)Ordered By: Himanshu Reyes on 02-24-2024 Creatinine [Mass/Vol] 0.90 mg/dL 0.55-1.02 [facility] Comment on above: The validity of the calculated GFR & GFRAA in patients over 70 years has not been determined. Clinical correlation is essential. Serum or plasma urea nitroge n measurement (mass/volume)Ordered By: Himanshu Reyes on 02-24-2024 Urea nitrogen [Mass/Vol] 18 mg/dL 7-18 [facility] Sodium levelOrdered By: Marc Reyes on 02-24-2024 Sodium [Moles/Vol] 139 mmol/L 136-145 [facility] T4 Free Directon 02-24-2024 T4 FREE DIRECT 1.27 ng/dL Normal 0.76-1.46 [facility] Comment on above: Performed By: #### L 506.1000, L501.6710, L501.9520, L500.4100, L509.1000, L101.9900, L501.9985, L100.0500, L500.4050, L506.0400 #### [facility] [address] [place], [place], [phone] TSH QnOrdered By: Himanshu iqbal on 02-24-2024 Thyroid Stimulating Hormone (TSH) 8.640 uIU/mL High 0.358-3.740 [facility] Thyroid Stim Hormone (TSH)on 02-24-2024 TSH 8.640 uIU/mL High 0.358-3.740 [facility] Comment on above: Performed By: #### L 506.1000, L501.6710, L501.9520, L500.4100, L509.1000, L101.9900, L501.9985, L100.0500, L500.4050, L506.0400 #### [facility] [address] [place], [place], [id number] Total proteinOrdered By: Dallas Reyes on 02-24-2024 Protein [Mass/Vol] 7.4 g/dL 6.4-8.2 [facility] Vitamin D,25 Hydroxyon 02-23 Vitamin D 25-OH 71.0 ng/mL Normal [facility] Comment on above: Result Comment: Susie min D 25(OH) Status Range Deficiency <20 ng/mL (50nmol/L) Insufficiency 20 - 30 ng/mL (50 - 75 nmol/L) Sufficiency 30 - 100 ng/mL (75 - 250 nmol/L) Toxicity >100 ng/mL (>250 nmol/L) Performed By: #### L 506.1000, L501.6710, L501.9520, L500.4100, L509.1000, L101.9900, L501.9985, L100.0500, L500.4050, L506.0400 #### [facility] [address], [address] [place] Chest, Abd, Pel w/Contras ton 01-26-2024 CT Chest, Abd, Pel w/Contrast [facility] [address] [place] [address] CT Chest, Abd, Pel w/Contrast MR#: [id number] Acct: [id number] Name: TESS RUDOLHP Rep #: [id number] : [id number] F [id number] From: Tito Alvarado MD PCP: BRENDA Guerra Status: REG CLI Study: CT Chest, Abd, Pel w/Contrast Date of Exam: Exam# [id number] Ordering Dr: Wil Dean NP SUCTION DREDGE DUMPING SUPERVISOR -[id number] STUDY: CT CHEST, ABDOMEN T PELVIS WITH CONTRAST REASON FOR EXAM: Female, 68 years old. [employer] RADIATION DOSAGE (If Supplied By Facility): CTDIvol = ( 7.92 ) mGy, DLP = ( 519.95 ) mGycm TECHNIQUE: Transaxial imaging was performed following intravenous administration of Oral and amp; IV BREEZA NEUTRAL and amp; 100mL Isovue-370. Individualized dose optimization techniques were used for this CT. COMPARISON: 09/15/2006 FINDINGS: CHEST Moderate bilateral apical scarring. No noncalcified nodule or mass. There is no demonstrated pleural abnormality. Normal heart and pericardium. Normal mediastinum. Normal hilar regions. Normal unenhanced pulmonary arteries. Normal aorta arch and descending thoracic aorta. Normal osseous structures. There is no demonstrated abnormality of the visualized upper abdomen. ABDOMEN The visualized lung bases are unremarkable. The visualized portions of the heart are within normal limits. Normal liver. The gallbladder is contracted. Normal spleen. Normal pancreas. Normal bilateral adrenal glands. Normal right kidney. Normal left kidney. Normal visualized stomach. Normal small intestine. Normal colon. There is non-visualization of the appendix. Normal abdominal aorta. Normal inferior vena cava. Normal retroperitoneum. Normal abdominal wall. Normal osseous structures. PELVIS Normal urinary bladder. Normal visualized small intestine. Normal visualized colon. There is no pelvic fluid. There is no pelvic lymphadenopathy or mass lesion. Normal visualized pelvic arteries. Normal abdominal wall. Normal osseous structures. CT/CT Chest, Abd, Pel w/Contrast IMPRESSION: Normal enhanced CT chest, abdomen T pelvis examination. Electronically Signed: Tito Alvarado MD at 13:17 EST , CC: BRENDA Dean Developer Support Engineer: Signed Normal [facility] PTHINon 01-05-2024 PTH 48.0 pg/mL Normal 18.4-80.1 [facility] Comment on above: Order Comment: DR.K REYES ORDERED TSH, FT4, CMP, VITD RAMESH DEAN ORDERED TSH, FT4, CMP, VITD AND ALL OTHER LABS Performed By: #### L 506.1000, L501.6710, L501.9520, L500.4100, L509.1000, L101.9900, L501.9985, L100.0500, L500.4050, L506.0400 #### [facility] [address] [place], [address] Vitamin D,25 Hydroxyon 01-04 Vitamin D 25-OH 26.6 ng/mL Normal [facility] Comment on above: Order Comment: DR.K REYES ORDERED TSH, FT4, CMP, VITD RAMESH DEAN ORDERED TSH, FT4, CMP, VITD AND ALL OTHER LABS Result Comment: Susie min D 25(OH) Status Range Deficiency <20 ng/mL (50nmol/L) Insufficiency 20 - 30 ng/mL (50 - 75 nmol/L) Sufficiency 30 - 100 ng/mL (75 - 250 nmol/L) Toxicity >100 ng/mL (>250 nmol/L) Performed By: #### L 506.1000, L501.6710, L501.9520, L500.4100, L509.1000, L101.9900, L501.9985, L100.0500, L500.4050, L506.0400 #### [facility] [address] [place], [place], [id number] CBC-Complete Blood Cnt No Di ffon 01-03-2024 Erythrocyte distribution width (RBC) [Ratio] 11.9 % Normal 11.6-14.6 [facility] Comment on above: Order Comment: DR.K REYES ORDERED TSH, FT4, CMP, VITD SUCTION DREDGE DUMPING SUPERVISOR.Bienvenido DEAN ORDERED TSH, FT4, CMP, VITD AND ALL OTHER LABS Performed By: #### L 506.1000, L501.6710, L501.9520, L500.4100, L509.1000, L101.9900, L501.9985, L100.0500, L500.4050, L506.0400 #### [facility] [address] [place], [place], [id number] Hematocrit (Bld) [Volume fraction] 38.8 % Normal 37-47 [facility] Comment on above: Order Comment: DR.K REYES ORDERED TSH, FT4, CMP, VITD SUCTION DREDGE DUMPING SUPERVISOR.Bienvenido DEAN ORDERED TSH, FT4, CMP, VITD AND ALL OTHER LABS Performed By: #### L 506.1000, L501.6710, L501.9520, L500.4100, L509.1000, L101.9900, L501.9985, L100.0500, L500.4050, L506.0400 #### [facility] [address] [place], [place], [id number] Hemoglobin (Bld) [Mass/Vol] 13.1 g/dL Normal 12.0-15.0 [facility] Comment on above: Order Comment: DR.K REYES ORDERED TSH, FT4, CMP, VITD SUCTION DREDGE DUMPING SUPERVISOR.Bienvenido DEAN ORDERED TSH, FT4, CMP, VITD AND ALL OTHER LABS Performed By: #### L 506.1000, L501.6710, L501.9520, L500.4100, L509.1000, L101.9900, L501.9985, L100.0500, L500.4050, L506.0400 #### [facility] [address] [place], [address] MCH (RBC) [Entitic mass] 34.3 pg High 27.0-32.0 [facility] Comment on above: Order Comment: DR.K REYES ORDERED TSH, FT4, CMP, VITD CHINO.Bienvenido DEAN ORDERED TSH, FT4, CMP, VITD AND ALL OTHER LABS Performed By: #### L 506.1000, L501.6710, L501.9520, L500.4100, L509.1000, L101.9900, L501.9985, L100.0500, L500.4050, L506.0400 #### [facility] [address] [place], [address] MCHC (RBC) [Mass/Vol] 33.8 g/dL Normal 32-36 [facility] Comment on above: Order Comment: DR.K REYES ORDERED TSH, FT4, CMP, VITD SUCTION DREDGE DUMPING SUPERVISOR.Bienvenido DEAN ORDERED TSH, FT4, CMP, VITD AND ALL OTHER LABS Performed By: #### L 506.1000, L501.6710, L501.9520, L500.4100, L509.1000, L101.9900, L501.9985, L100.0500, L500.4050, L506.0400 #### [facility] [address] [place], [address] MCV (RBC) [Entitic vol] 101.6 fL High 81-99 [facility] Comment on above: Order Comment: DR.K REYES ORDERED TSH, FT4, CMP, VITD CHINO.Bienvenido DEAN ORDERED TSH, FT4, CMP, VITD AND ALL OTHER LABS Performed By: #### L 506.1000, L501.6710, L501.9520, L500.4100, L509.1000, L101.9900, L501.9985, L100.0500, L500.4050, L506.0400 #### [facility] [address] [place], [address] Platelet mean volume (Bld) [Entitic vol] 9.2 fL Normal 6.2-12.0 [facility] Comment on above: Order Comment: DR.K REYES ORDERED TSH, FT4, CMP, VITD CHINO.Bienvenido DEAN ORDERED TSH, FT4, CMP, VITD AND ALL OTHER LABS Performed By: #### L 506.1000, L501.6710, L501.9520, L500.4100, L509.1000, L101.9900, L501.9985, L100.0500, L500.4050, L506.0400 #### [facility] [address] [facility] [place], [address] Platelets (Bld) [#/Vol] 302 10*3/uL Normal 150-450 [facility] Comment on above: Order Comment: DR.K REYES ORDERED TSH, FT4, CMP, VITD SUCTION DREDGE DUMPING SUPERVISOR.Bienvenido DEAN ORDERED TSH, FT4, CMP, VITD AND ALL OTHER LABS Performed By: #### L 506.1000, L501.6710, L501.9520, L500.4100, L509.1000, L101.9900, L501.9985, L100.0500, L500.4050, L506.0400 #### [facility] [address] [place], [address] RBC (Bld) [#/Vol] 3.82 10*6/uL Low 4.2-5.4 [facility] Comment on above: Order Comment: DR.K REYES ORDERED TSH, FT4, CMP, VITD CHINO.Bienvenido DEAN ORDERED TSH, FT4, CMP, VITD AND ALL OTHER LABS Performed By: #### L 506.1000, L501.6710, L501.9520, L500.4100, L509.1000, L101.9900, L501.9985, L100.0500, L500.4050, L506.0400 #### [facility] [address] [place], [address] RDW SD 44.1 fl High 35.1-43.9 [facility] Comment on above: Order Comment: DR.K REYES ORDERED TSH, FT4, CMP, VITD SUCTION DREDGE DUMPING SUPERVISOR.Bienvenido DEAN ORDERED TSH, FT4, CMP, VITD AND ALL OTHER LABS Performed By: #### L 506.1000, L501.6710, L501.9520, L500.4100, L509.1000, L101.9900, L501.9985, L100.0500, L500.4050, L506.0400 #### [facility] [address] [place], [place], [id number] WBC (Bld) [#/Vol] 7.9 10*3/uL Normal 4.4-11.0 [facility] Comment on above: Order Comment: DR.K REYES ORDERED TSH, FT4, CMP, VITD SUCTION DREDGE DUMPING SUPERVISOR.Bienvenido DEAN ORDERED TSH, FT4, CMP, VITD AND ALL OTHER LABS Performed By: #### L 506.1000, L501.6710, L501.9520, L500.4100, L509.1000, L101.9900, L501.9985, L100.0500, L500.4050, L506.0400 #### [facility] [address] [place], [place], [id number] CRPon 01-03-2024 C-REACTIVE PROT < 2.90 Normal 0.0-3.0 [facility] Comment on above: Order Comment: DR.K REYES ORDERED TSH, FT4, CMP, VITD CHINO.Bienvenido DEAN ORDERED TSH, FT4, CMP, VITD AND ALL OTHER LABS Result Comment: C-Re active Protein (CRP) provides useful information for the diagnosis, therapy and monitoring of inflammatory processes and associated diseases. For the evaluation of Relative Risk for Cardiovascular Disease, a High Sensitivity CRP (HSCRP) should be ordered. Performed By: #### L 506.1000, L501.6710, L501.9520, L500.4100, L509.1000, L101.9900, L501.9985, L100.0500, L500.4050, L506.0400 #### [facility] [address] [place], [address] Comprehensive Metabolic Prof ilon 01-03-2024 Albumin [Mass/Vol] 3.9 g/dL Normal 3.2-5.0 [facility] Comment on above: Order Comment: DR.K REYES ORDERED TSH, FT4, CMP, VITD SUCTION DREDGE DUMPING SUPERVISOR.Bienvenido DEAN ORDERED TSH, FT4, CMP, VITD AND ALL OTHER LABS Performed By: #### L 506.1000, L501.6710, L501.9520, L500.4100, L509.1000, L101.9900, L501.9985, L100.0500, L500.4050, L506.0400 #### [facility] [address] [place], [place], [id number] Albumin/Globulin [Mass ratio] 1.2 {ratio} Normal 0.9-2.4 [facility] Comment on above: Order Comment: DR.K REYES ORDERED TSH, FT4, CMP, VITD SUCTION DREDGE DUMPING SUPERVISOR.Bienvenido DEAN ORDERED TSH, FT4, CMP, VITD AND ALL OTHER LABS Performed By: #### L 506.1000, L501.6710, L501.9520, L500.4100, L509.1000, L101.9900, L501.9985, L100.0500, L500.4050, L506.0400 #### [facility] [address] [place], [address] ALK P 42 U/L Low 45-117 [facility] Comment on above: Order Comment: DR.K REYES ORDERED TSH, FT4, CMP, VITD CHINO.Bienvenido DEAN ORDERED TSH, FT4, CMP, VITD AND ALL OTHER LABS Performed By: #### L 506.1000, L501.6710, L501.9520, L500.4100, L509.1000, L101.9900, L501.9985, L100.0500, L500.4050, L506.0400 #### [facility] [address] [place], [place], [id number] ALT [Catalytic activity/Vol] 19 U/L Normal 13-56 [facility] Comment on above: Order Comment: DR.K REYES ORDERED TSH, FT4, CMP, VITD SUCTION DREDGE DUMPING SUPERVISOR.Bienvenido DEAN ORDERED TSH, FT4, CMP, VITD AND ALL OTHER LABS Performed By: #### L 506.1000, L501.6710, L501.9520, L500.4100, L509.1000, L101.9900, L501.9985, L100.0500, L500.4050, L506.0400 #### [facility] [address] [facility] [place], [place], [id number] AST [Catalytic activity/Vol] 16 U/L Normal 15-37 [facility] Comment on above: Order Comment: DR.K REYES ORDERED TSH, FT4, CMP, VITD SUCTION DREDGE DUMPING SUPERVISOR.Bienvenido DEAN ORDERED TSH, FT4, CMP, VITD AND ALL OTHER LABS Performed By: #### L 506.1000, L501.6710, L501.9520, L500.4100, L509.1000, L101.9900, L501.9985, L100.0500, L500.4050, L506.0400 #### [facility] [address] [facility] [place], [place], [id number] Bilirubin [Mass/Vol] 0.30 mg/dL Normal 0.20-1.00 [facility] Comment on above: Order Comment: DR.K REYES ORDERED TSH, FT4, CMP, VITD SUCTION DREDGE DUMPING SUPERVISOR.Bienvenido DEAN ORDERED TSH, FT4, CMP, VITD AND ALL OTHER LABS Result Comment: For patients on eltrombopag therapy, use of [address] TBIL is not recommended. Performed By: #### L 506.1000, L501.6710, L501.9520, L500.4100, L509.1000, L101.9900, L501.9985, L100.0500, L500.4050, L506.0400 #### [facility] [address] [place], [address] BUN/CRE 20.5 RATIO High 10-20 [facility] Comment on above: Order Comment: DR.K REYES ORDERED TSH, FT4, CMP, VITD SUCTION DREDGE DUMPING SUPERVISOR.Bienvenido DEAN ORDERED TSH, FT4, CMP, VITD AND ALL OTHER LABS Performed By: #### L 506.1000, L501.6710, L501.9520, L500.4100, L509.1000, L101.9900, L501.9985, L100.0500, L500.4050, L506.0400 #### [facility] [address] [place], [address] CA,Total 9.1 mg/dL Normal 8.5-10.1 [facility] Comment on above: Order Comment: DR.K REYES ORDERED TSH, FT4, CMP, VITD SUCTION DREDGE DUMPING SUPERVISOR.Bienvenido DEAN ORDERED TSH, FT4, CMP, VITD AND ALL OTHER LABS Performed By: #### L 506.1000, L501.6710, L501.9520, L500.4100, L509.1000, L101.9900, L501.9985, L100.0500, L500.4050, L506.0400 #### [facility] [address] [place], [address] Chloride [Moles/Vol] 107 mmol/L Normal 98-107 [facility] Comment on above: Order Comment: DR.K REYES ORDERED TSH, FT4, CMP, VITD SUCTION DREDGE DUMPING SUPERVISOR.Bienvenido DEAN ORDERED TSH, FT4, CMP, VITD AND ALL OTHER LABS Performed By: #### L 506.1000, L501.6710, L501.9520, L500.4100, L509.1000, L101.9900, L501.9985, L100.0500, L500.4050, L506.0400 #### [facility] [address] [place], [address] CO2 [Moles/Vol] 25.0 mmol/L Normal 21.0-32.0 [facility] Comment on above: Order Comment: DR.K REYES ORDERED TSH, FT4, CMP, VITD SUCTION DREDGE DUMPING SUPERVISOR.Bienvenido DEAN ORDERED TSH, FT4, CMP, VITD AND ALL OTHER LABS Performed By: #### L 506.1000, L501.6710, L501.9520, L500.4100, L509.1000, L101.9900, L501.9985, L100.0500, L500.4050, L506.0400 #### [facility] [address] [place], [place], [id number] Creatinine [Mass/Vol] 0.78 mg/dL Normal 0.55-1.02 [facility] Comment on above: Order Comment: DR.K REYES ORDERED TSH, FT4, CMP, VITD SUCTION DREDGE DUMPING SUPERVISOR.Bienvenido DEAN ORDERED TSH, FT4, CMP, VITD AND ALL OTHER LABS Result Comment: The validity of the calculated GFR GFRAA in patients over 70 years has not been determined. Clinical correlation is essential. Performed By: #### L 506.1000, L501.6710, L501.9520, L500.4100, L509.1000, L101.9900, L501.9985, L100.0500, L500.4050, L506.0400 #### [facility] [address] [place], [place], [address] EST GFR - AA 94 mL/min Normal >60 [facility] Comment on above: Order Comment: DR.K REYES ORDERED TSH, FT4, CMP, VITD SUCTION DREDGE DUMPING SUPERVISOR.Bienvenido DEAN ORDERED TSH, FT4, CMP, VITD AND ALL OTHER LABS Result Comment: Afri can [place] GFR Calc Performed By: #### L 506.1000, L501.6710, L501.9520, L500.4100, L509.1000, L101.9900, L501.9985, L100.0500, L500.4050, L506.0400 #### [facility] [address] [place], [address] GAP 6 Normal 5-15 [facility] Comment on above: Order Comment: DR.K REYES ORDERED TSH, FT4, CMP, VITD SUCTION DREDGE DUMPING SUPERVISOR.Bienvenido DEAN ORDERED TSH, FT4, CMP, VITD AND ALL OTHER LABS Performed By: #### L 506.1000, L501.6710, L501.9520, L500.4100, L509.1000, L101.9900, L501.9985, L100.0500, L500.4050, L506.0400 #### [facility] [address] [place], [place], [id number] GFR/1.73 sq M.predicted among non-blacks MDRD (S/P/Bld) [Vol rate/Area] 78 mL/min/{1.73_m2} Normal >60 [facility] Comment on above: Order Comment: DR.K REYES ORDERED TSH, FT4, CMP, VITD SUCTION DREDGE DUMPING SUPERVISOR.Bienvenido DEAN ORDERED TSH, FT4, CMP, VITD AND ALL OTHER LABS Result Comment: Non- GFR Calc Performed By: #### L 506.1000, L501.6710, L501.9520, L500.4100, L509.1000, L101.9900, L501.9985, L100.0500, L500.4050, L506.0400 #### [facility] [address] [place], [place], [id number] Globulin (S) [Mass/Vol] 3.3 g/dL Normal 2.2-4.2 [facility] Comment on above: Order Comment: DR.K REYES ORDERED TSH, FT4, CMP, VITD HCINO.Bienvenido DENA ORDERED TSH, FT4, CMP, VITD AND ALL OTHER LABS Performed By: #### L 506.1000, L501.6710, L501.9520, L500.4100, L509.1000, L101.9900, L501.9985, L100.0500, L500.4050, L506.0400 #### [facility] [address] [place], [address] Glucose [Mass/Vol] 135 mg/dL High 74-106 [facility] Comment on above: Order Comment: DR.K REYES ORDERED TSH, FT4, CMP, VITD CHINO.Bienvenido DEAN ORDERED TSH, FT4, CMP, VITD AND ALL OTHER LABS Result Comment: Fast ing Glucose result greater than or equal to 126 mg/dL suggests DIABETES MELLITUS per A.D.A. criteria. Performed By: #### L 506.1000, L501.6710, L501.9520, L500.4100, L509.1000, L101.9900, L501.9985, L100.0500, L500.4050, L506.0400 #### [facility] [address] [facility] [place], [address] Potassium [Moles/Vol] 4.1 mmol/L Normal 3.5-5.1 [facility] Comment on above: Order Comment: DR.K REYES ORDERED TSH, FT4, CMP, VITD SUCTION DREDGE DUMPING SUPERVISOR.Bienvenido DEAN ORDERED TSH, FT4, CMP, VITD AND ALL OTHER LABS Performed By: #### L 506.1000, L501.6710, L501.9520, L500.4100, L509.1000, L101.9900, L501.9985, L100.0500, L500.4050, L506.0400 #### [facility] [address] [place], [address] Sodium [Moles/Vol] 138 mmol/L Normal 136-145 [facility] Comment on above: Order Comment: DR.K REYES ORDERED TSH, FT4, CMP, VITD CHINO.Bienvenido DEAN ORDERED TSH, FT4, CMP, VITD AND ALL OTHER LABS Performed By: #### L 506.1000, L501.6710, L501.9520, L500.4100, L509.1000, L101.9900, L501.9985, L100.0500, L500.4050, L506.0400 #### [facility] [address] [place], [place], [id number] T PROT 7.2 g/dL Normal 6.4-8.2 [facility] Comment on above: Order Comment: DR.K REYES ORDERED TSH, FT4, CMP, VITD SUCTION DREDGE DUMPING SUPERVISOR.Bienvenido DEAN ORDERED TSH, FT4, CMP, VITD AND ALL OTHER LABS Performed By: #### L 506.1000, L501.6710, L501.9520, L500.4100, L509.1000, L101.9900, L501.9985, L100.0500, L500.4050, L506.0400 #### [facility] [address] [facility] [place], [address] Urea nitrogen [Mass/Vol] 16 mg/dL Normal 7-18 [facility] Comment on above: Order Comment: DR.K REYES ORDERED TSH, FT4, CMP, VITD SUCTION DREDGE DUMPING SUPERVISOR.Bienvenido DEAN ORDERED TSH, FT4, CMP, VITD AND ALL OTHER LABS Performed By: #### L 506.1000, L501.6710, L501.9520, L500.4100, L509.1000, L101.9900, L501.9985, L100.0500, L500.4050, L506.0400 #### [facility] [address] [facility] [place], [place], [id number] Erythrocyte Sed Rateon 01-02 SED RATE 1 mm/hr Normal 0-30 [facility] Comment on above: Order Comment: DR.K REYES ORDERED TSH, FT4, CMP, VITD SUCTION DREDGE DUMPING SUPERVISOR.Bienvenido DEAN ORDERED TSH, FT4, CMP, VITD AND ALL OTHER LABS Performed By: #### L 506.1000, L501.6710, L501.9520, L500.4100, L509.1000, L101.9900, L501.9985, L100.0500, L500.4050, L506.0400 #### [facility] [address] [place], [place], [phone] Hemoglobin A1con 01-03-2024 HbA1c (Bld) [Mass fraction] 6.4 % High 3.8-5.6 [facility] Comment on above: Order Comment: DR.K REYES ORDERED TSH, FT4, CMP, VITD CHINO.Bienvenido DEAN ORDERED TSH, FT4, CMP, VITD AND ALL OTHER LABS Result Comment: Norm al < 5.7 % Prediabetic 5.7 - 6.4 % Diabetic >or= 6.5 % Please note range changes. Performed By: #### L 506.1000, L501.6710, L501.9520, L500.4100, L509.1000, L101.9900, L501.9985, L100.0500, L500.4050, L506.0400 #### [facility] [address] [place], [place], [id number] Lipid Profileon 01-03-2024 Cholesterol [Mass/Vol] 164 mg/dL Normal 200 [facility] Comment on above: Order Comment: DR.K REYES ORDERED TSH, FT4, CMP, VITD SUCTION DREDGE DUMPING SUPERVISOR.Bienvenido DEAN ORDERED TSH, FT4, CMP, VITD AND ALL OTHER LABS Result Comment: <200 mg/dL Desirable 200-240 mg/dL Borderline >240 mg/dL High Risk Performed By: #### L 506.1000, L501.6710, L501.9520, L500.4100, L509.1000, L101.9900, L501.9985, L100.0500, L500.4050, L506.0400 #### [facility] [address] [place], [place], [id number] Cholesterol in HDL [Mass/Vol] 107 mg/dL Normal [facility] Comment on above: Order Comment: DR.K REYES ORDERED TSH, FT4, CMP, VITD CHINO.Bienvenido DEAN ORDERED TSH, FT4, CMP, VITD AND ALL OTHER LABS Result Comment: The drugs N-Acetylcysteine and Metamizole may falsely depress this assay. Reference Range HDL <40 mg/dL Low HDL Cholesterol HDL >or= 60 mg/dL High HDL Cholesterol Performed By: #### L 506.1000, L501.6710, L501.9520, L500.4100, L509.1000, L101.9900, L501.9985, L100.0500, L500.4050, L506.0400 #### [facility] [address] [place], [address] Cholesterol in LDL [Mass/Vol] 44 mg/dL Normal 0-130 [facility] Comment on above: Order Comment: DR.K REYES ORDERED TSH, FT4, CMP, VITD SUCTION DREDGE DUMPING SUPERVISOR.Bienvenido DEAN ORDERED TSH, FT4, CMP, VITD AND ALL OTHER LABS Performed By: #### L 506.1000, L501.6710, L501.9520, L500.4100, L509.1000, L101.9900, L501.9985, L100.0500, L500.4050, L506.0400 #### [facility] [address] [facility] [place], [address] Cholesterol in VLDL [Mass/Vol] 13 mg/dL Normal 5-40 [facility] Comment on above: Order Comment: DR.K REYES ORDERED TSH, FT4, CMP, VITD CHINO.Bienvenido DEAN ORDERED TSH, FT4, CMP, VITD AND ALL OTHER LABS Performed By: #### L 506.1000, L501.6710, L501.9520, L500.4100, L509.1000, L101.9900, L501.9985, L100.0500, L500.4050, L506.0400 #### [facility] [address] [place], [address] Triglyceride [Mass/Vol] 64 mg/dL Normal [facility] Comment on above: Order Comment: DR.K REYES ORDERED TSH, FT4, CMP, VITD CHINO.Bienvenido DEAN ORDERED TSH, FT4, CMP, VITD AND ALL OTHER LABS Result Comment: The drugs N-Acetylcysteine and Metamizole may falsely depress this assay. Serum Triglycerides Reference Interval Normal <150 mg/dL Borderline high 150 - 199 mg/dL High 200 - 499 mg/dL Very High > or = 500 mg/dL Performed By: #### L 506.1000, L501.6710, L501.9520, L500.4100, L509.1000, L101.9900, L501.9985, L100.0500, L500.4050, L506.0400 #### [facility] [address] [place], [place], [phone] ([phone] T4 Free Directon 01-03-2024 T4 FREE DIRECT 1.33 ng/dL Normal 0.76-1.46 [facility] Comment on above: Order Comment: DR.K REYES ORDERED TSH, FT4, CMP, VITD SUCTION DREDGE DUMPING SUPERVISOR.Bienvenido DEAN ORDERED TSH, FT4, CMP, VITD AND ALL OTHER LABS Performed By: #### L 506.1000, L501.6710, L501.9520, L500.4100, L509.1000, L101.9900, L501.9985, L100.0500, L500.4050, L506.0400 #### [facility] [place], [place], [id number] ([phone]) Thyroid Stim Hormone (TSH)on 01-03-2024 TSH 13.200 uIU/mL High 0.358-3.740 [facility] Comment on above: Order Comment: DR.K REYES ORDERED TSH, FT4, CMP, VITD SUCTION DREDGE DUMPING SUPERVISOR.Bienvenido DEAN ORDERED TSH, FT4, CMP, VITD AND ALL OTHER LABS Performed By: #### L 506.1000, L501.6710, L501.9520, L500.4100, L509.1000, L101.9900, L501.9985, L100.0500, L500.4050, L506.0400 #### [facility] [address] [place], [place], [phone] (963) Basic Metabolic Profile (BMP )on 12-12-2023 BUN/CRE 14.5 RATIO Normal 10-20 [facility] Comment on above: Performed By: #### L 506.1000, L501.6710, L501.9520, L500.4100, L509.1000, L101.9900, L501.9985, L100.0500, L500.4050, L506.0400 #### [facility] [address] [place], [address] CA,Total 10.3 mg/dL High 8.5-10.1 [facility] Comment on above: Performed By: #### L 506.1000, L501.6710, L501.9520, L500.4100, L509.1000, L101.9900, L501.9985, L100.0500, L500.4050, L506.0400 #### [facility] [address] [place], [address] Chloride [Moles/Vol] 103 mmol/L Normal 98-107 [facility] Comment on above: Performed By: #### L 506.1000, L501.6710, L501.9520, L500.4100, L509.1000, L101.9900, L501.9985, L100.0500, L500.4050, L506.0400 #### [facility] [address] [place], [address] CO2 [Moles/Vol] 28.0 mmol/L Normal 21.0-32.0 [facility] Comment on above: Performed By: #### L 506.1000, L501.6710, L501.9520, L500.4100, L509.1000, L101.9900, L501.9985, L100.0500, L500.4050, L506.0400 #### [facility] [address] [place], [address] Creatinine [Mass/Vol] 0.97 mg/dL Normal 0.55-1.02 [facility] Comment on above: Result Comment: The validity of the calculated GFR GFRAA in patients over 70 years has not been determined. Clinical correlation is essential. Performed By: #### L 506.1000, L501.6710, L501.9520, L500.4100, L509.1000, L101.9900, L501.9985, L100.0500, L500.4050, L506.0400 #### [facility] [address] [place], [place], [id number] EST GFR - AA 74 mL/min Normal >60 [facility] Comment on above: Result Comment: Afri can [place] GFR Calc Performed By: #### L 506.1000, L501.6710, L501.9520, L500.4100, L509.1000, L101.9900, L501.9985, L100.0500, L500.4050, L506.0400 #### [facility] [address] [facility] [place], [address] GAP 6 Normal 5-15 [facility] Comment on above: Performed By: #### L 506.1000, L501.6710, L501.9520, L500.4100, L509.1000, L101.9900, L501.9985, L100.0500, L500.4050, L506.0400 #### [facility] [address], [address] GFR/1.73 sq M.predicted among non-blacks MDRD (S/P/Bld) [Vol rate/Area] 61 mL/min/{1.73_m2} Normal >60 [facility] Comment on above: Result Comment: Non- GFR Calc Performed By: #### L 506.1000, L501.6710, L501.9520, L500.4100, L509.1000, L101.9900, L501.9985, L100.0500, L500.4050, L506.0400 #### [facility] [address] [place], [address] Glucose [Mass/Vol] 151 mg/dL High 74-106 [facility] Comment on above: Result Comment: Fast ing Glucose result greater than or equal to 126 mg/dL suggests DIABETES MELLITUS per A.D.A. criteria. Performed By: #### L 506.1000, L501.6710, L501.9520, L500.4100, L509.1000, L101.9900, L501.9985, L100.0500, L500.4050, L506.0400 #### [facility] [address] [place], [address] Potassium [Moles/Vol] 4.1 mmol/L Normal 3.5-5.1 [facility] Comment on above: Performed By: #### L 506.1000, L501.6710, L501.9520, L500.4100, L509.1000, L101.9900, L501.9985, L100.0500, L500.4050, L506.0400 #### [facility] [address] [place], [place], [phone] ([phone]) Sodium [Moles/Vol] 137 mmol/L Normal 136-145 [facility] Comment on above: Performed By: #### L 506.1000, L501.6710, L501.9520, L500.4100, L509.1000, L101.9900, L501.9985, L100.0500, L500.4050, L506.0400 #### [facility] [address] [place], [place], [phone] ([phone]) Urea nitrogen [Mass/Vol] 14 mg/dL Normal 7-18 [facility] Comment on above: Performed By: #### L 506.1000, L501.6710, L501.9520, L500.4100, L509.1000, L101.9900, L501.9985, L100.0500, L500.4050, L506.0400 #### [facility] [address] [place], [address] T4 Free Directon 12-12-2023 T4 FREE DIRECT 1.39 ng/dL Normal 0.76-1.46 [facility] Comment on above: Performed By: #### L 506.1000, L501.6710, L501.9520, L500.4100, L509.1000, L101.9900, L501.9985, L100.0500, L500.4050, L506.0400 #### [facility] [address] [facility] [place], [address] Thyroid Stim Hormone (TSH)on 12-12-2023 TSH 15.500 uIU/mL High 0.358-3.740 [facility] Comment on above: Performed By: #### L 506.1000, L501.6710, L501.9520, L500.4100, L509.1000, L101.9900, L501.9985, L100.0500, L500.4050, L506.0400 #### [facility] [address] [place], [place], [id number] SCRN MAMM (CAD)W/RUSTY BILATo n 12-04-2023 SCRN MAMM (CAD)W/RUSTY BILAT [facility] [address] [place], [place] [address] SCRN MAMM (CAD)W/RUSTY BILAT MR#: [id number] Acct: [id number] Name: TESS RUDOLPH Rep #: [id number] : 1955 F 68 From: Kumar cabral MD PCP: BRENDA Guerra Status: [facility] Study: SCRN MAMM (CAD)W/RUSTY BILAT Date of Exam: 05/24 Exam# [id number] Ordering Dr: Wil Dean NP, NP -C [id number] MAMMOGRAPHY - BILATERAL SCREENING REASON FOR EXAM: Female, 68 years old. Routine annual screening examination. PERTINENT HISTORY: Non-contributory. TECHNIQUE: Digital bilateral breast rusty (3D mammographic acquisition) in the CC and MLO projections. 2-D mediolateral oblique (MLO) and craniocaudad (CC) views of both breasts were obtained. CAD: Full Field Digital Mammography with Computer Added Detection was performed. COMPARISON: Comparison is made with prior study dated November 19, 2022 and October 30, 2021. FINDINGS: Breast Composition: The breasts are heterogeneously dense, which may obscure small masses. There are no dominant masses or suspicious calcifications. Stable 5 mm x 4 mm well-defined nodule in the axillary region of the left breast suggestive of a small lymph node. No other significant abnormalities are identified. There has been no significant change since the prior study. BI/SCRN MAMM (CAD)W/RUSTY BILAT IMPRESSION: Stable bilateral screening mammogram. Yearly follow-up mammogram recommended. (A) ASSESSMENT CATEGORY: BIRADS Category 2: Benign. A letter regarding these results will be sent to the patient by the facility within 30 days. Approximately 10% of breast cancers are not detected by mammography. A normal mammogram should not delay biopsy of a clinically suspicious abnormality. [id number] Electronically Signed: Kumar Leblanc MD at 10:41 EDT , CC: BRENDA Dean Developer Support Engineer: Signed Normal [facility] CBC-Complete Blood Cnt No Di ffon 11-06-2023 Erythrocyte distribution width (RBC) [Ratio] 11.4 % Low 11.6-14.6 [facility] Comment on above: Performed By: #### L 506.1000, L501.6710, L501.9520, L500.4100, L509.1000, L101.9900, L501.9985, L100.0500, L500.4050, L506.0400 #### [facility] [address] [place], [address] Hematocrit (Bld) [Volume fraction] 43.7 % Normal 37-47 [facility] Comment on above: Performed By: #### L 506.1000, L501.6710, L501.9520, L500.4100, L509.1000, L101.9900, L501.9985, L100.0500, L500.4050, L506.0400 #### [facility] [address] [facility] [place], [address] Hemoglobin (Bld) [Mass/Vol] 14.5 g/dL Normal 12.0-15.0 [facility] Comment on above: Performed By: #### L 506.1000, L501.6710, L501.9520, L500.4100, L509.1000, L101.9900, L501.9985, L100.0500, L500.4050, L506.0400 #### [facility] [address] [facility] [place], [address] MCH (RBC) [Entitic mass] 33.2 pg High 27.0-32.0 [facility] Comment on above: Performed By: #### L 506.1000, L501.6710, L501.9520, L500.4100, L509.1000, L101.9900, L501.9985, L100.0500, L500.4050, L506.0400 #### [facility] [address] [place], [address] MCHC (RBC) [Mass/Vol] 33.2 g/dL Normal 32-36 [facility] Comment on above: Performed By: #### L 506.1000, L501.6710, L501.9520, L500.4100, L509.1000, L101.9900, L501.9985, L100.0500, L500.4050, L506.0400 #### [facility] [address] [place], [address] MCV (RBC) [Entitic vol] 100.0 fL High 81-99 [facility] Comment on above: Performed By: #### L 506.1000, L501.6710, L501.9520, L500.4100, L509.1000, L101.9900, L501.9985, L100.0500, L500.4050, L506.0400 #### [facility] [address] [place], [address] Platelet mean volume (Bld) [Entitic vol] 8.7 fL Normal 6.2-12.0 [facility] Comment on above: Performed By: #### L 506.1000, L501.6710, L501.9520, L500.4100, L509.1000, L101.9900, L501.9985, L100.0500, L500.4050, L506.0400 #### [facility] [address] [place], [address] Platelets (Bld) [#/Vol] 354 10*3/uL Normal 150-450 [facility] Comment on above: Performed By: #### L 506.1000, L501.6710, L501.9520, L500.4100, L509.1000, L101.9900, L501.9985, L100.0500, L500.4050, L506.0400 #### [facility] [address] [place], [address] RBC (Bld) [#/Vol] 4.37 10*6/uL Normal 4.2-5.4 [facility] Comment on above: Performed By: #### L 506.1000, L501.6710, L501.9520, L500.4100, L509.1000, L101.9900, L501.9985, L100.0500, L500.4050, L506.0400 #### [facility] [address] [place], [address] RDW SD 42.0 fl Normal 35.1-43.9 [facility] Comment on above: Performed By: #### L 506.1000, L501.6710, L501.9520, L500.4100, L509.1000, L101.9900, L501.9985, L100.0500, L500.4050, L506.0400 #### [facility] [address] [place], [address] WBC (Bld) [#/Vol] 6.7 10*3/uL Normal 4.4-11.0 [facility] Comment on above: Performed By: #### L 506.1000, L501.6710, L501.9520, L500.4100, L509.1000, L101.9900, L501.9985, L100.0500, L500.4050, L506.0400 #### [facility] [address] [place], [address] Comprehensive Metabolic Prof sdon 11-06-2023 Albumin [Mass/Vol] 3.9 g/dL Normal 3.2-5.0 [facility] Comment on above: Performed By: #### L 506.1000, L501.6710, L501.9520, L500.4100, L509.1000, L101.9900, L501.9985, L100.0500, L500.4050, L506.0400 #### [facility] [address] [place], [address] Albumin/Globulin [Mass ratio] 1.0 {ratio} Normal 0.9-2.4 [facility] Comment on above: Performed By: #### L 506.1000, L501.6710, L501.9520, L500.4100, L509.1000, L101.9900, L501.9985, L100.0500, L500.4050, L506.0400 #### [facility] [address] [place], [address] ALK P 56 U/L Normal 45-117 [facility] Comment on above: Performed By: #### L 506.1000, L501.6710, L501.9520, L500.4100, L509.1000, L101.9900, L501.9985, L100.0500, L500.4050, L506.0400 #### [facility] [address] [place], [address] ALT [Catalytic activity/Vol] 20 U/L Normal 13-56 [facility] Comment on above: Performed By: #### L 506.1000, L501.6710, L501.9520, L500.4100, L509.1000, L101.9900, L501.9985, L100.0500, L500.4050, L506.0400 #### [facility] [address] [place], [address] AST [Catalytic activity/Vol] 19 U/L Normal 15-37 [facility] Comment on above: Performed By: #### L 506.1000, L501.6710, L501.9520, L500.4100, L509.1000, L101.9900, L501.9985, L100.0500, L500.4050, L506.0400 #### [facility] [address] [place], [address] Bilirubin [Mass/Vol] 0.30 mg/dL Normal 0.20-1.00 [facility] Comment on above: Result Comment: For patients on eltrombopag therapy, use of Dimension [address] TBIL is not recommended. Performed By: #### L 506.1000, L501.6710, L501.9520, L500.4100, L509.1000, L101.9900, L501.9985, L100.0500, L500.4050, L506.0400 #### [facility] [address] [place], [address] BUN/CRE 17.4 RATIO Normal 10-20 [facility] Comment on above: Performed By: #### L 506.1000, L501.6710, L501.9520, L500.4100, L509.1000, L101.9900, L501.9985, L100.0500, L500.4050, L506.0400 #### [facility] [address] [place], [address] CA,Total 10.2 mg/dL High 8.5-10.1 [facility] Comment on above: Performed By: #### L 506.1000, L501.6710, L501.9520, L500.4100, L509.1000, L101.9900, L501.9985, L100.0500, L500.4050, L506.0400 #### [facility] [address] [place], [address] Chloride [Moles/Vol] 105 mmol/L Normal 98-107 [facility] Comment on above: Performed By: #### L 506.1000, L501.6710, L501.9520, L500.4100, L509.1000, L101.9900, L501.9985, L100.0500, L500.4050, L506.0400 #### [facility] [address] [place], [address] CO2 [Moles/Vol] 29.0 mmol/L Normal 21.0-32.0 [facility] Comment on above: Performed By: #### L 506.1000, L501.6710, L501.9520, L500.4100, L509.1000, L101.9900, L501.9985, L100.0500, L500.4050, L506.0400 #### [facility] [address] [place], [place], [id number] Creatinine [Mass/Vol] 0.92 mg/dL Normal 0.55-1.02 [facility] Comment on above: Result Comment: The validity of the calculated GFR GFRAA in patients over 70 years has not been determined. Clinical correlation is essential. Performed By: #### L 506.1000, L501.6710, L501.9520, L500.4100, L509.1000, L101.9900, L501.9985, L100.0500, L500.4050, L506.0400 #### [facility] [address] [place], [place], [id number] (902) EST GFR - AA 78 mL/min Normal >60 [facility] Comment on above: Result Comment: Afri can [place] GFR Calc Performed By: #### L 506.1000, L501.6710, L501.9520, L500.4100, L509.1000, L101.9900, L501.9985, L100.0500, L500.4050, L506.0400 #### [facility] [address] [place], [address] GAP 4 Low 5-15 [facility] Comment on above: Performed By: #### L 506.1000, L501.6710, L501.9520, L500.4100, L509.1000, L101.9900, L501.9985, L100.0500, L500.4050, L506.0400 #### [facility] [address] [place], [place], [id number] GFR/1.73 sq M.predicted among non-blacks MDRD (S/P/Bld) [Vol rate/Area] 64 mL/min/{1.73_m2} Normal >60 [facility] Comment on above: Result Comment: Non- GFR Calc Performed By: #### L 506.1000, L501.6710, L501.9520, L500.4100, L509.1000, L101.9900, L501.9985, L100.0500, L500.4050, L506.0400 #### [facility] [address] [place], [address] Globulin (S) [Mass/Vol] 3.8 g/dL Normal 2.2-4.2 [facility] Comment on above: Performed By: #### L 506.1000, L501.6710, L501.9520, L500.4100, L509.1000, L101.9900, L501.9985, L100.0500, L500.4050, L506.0400 #### [facility] [address] [place], [address] Glucose [Mass/Vol] 137 mg/dL High 74-106 [facility] Comment on above: Result Comment: Fast ing Glucose result greater than or equal to 126 mg/dL suggests DIABETES MELLITUS per A.D.A. criteria. Performed By: #### L 506.1000, L501.6710, L501.9520, L500.4100, L509.1000, L101.9900, L501.9985, L100.0500, L500.4050, L506.0400 #### [facility] [address] [place], [address] Potassium [Moles/Vol] 4.2 mmol/L Normal 3.5-5.1 [facility] Comment on above: Performed By: #### L 506.1000, L501.6710, L501.9520, L500.4100, L509.1000, L101.9900, L501.9985, L100.0500, L500.4050, L506.0400 #### [facility] [address] [place], [address] Sodium [Moles/Vol] 138 mmol/L Normal 136-145 [facility] Comment on above: Performed By: #### L 506.1000, L501.6710, L501.9520, L500.4100, L509.1000, L101.9900, L501.9985, L100.0500, L500.4050, L506.0400 #### [facility] [address] [place], [place], [id number] (263) T PROT 7.7 g/dL Normal 6.4-8.2 [facility] Comment on above: Performed By: #### L 506.1000, L501.6710, L501.9520, L500.4100, L509.1000, L101.9900, L501.9985, L100.0500, L500.4050, L506.0400 #### [facility] [address] [facility] [place], [place], [id number] Urea nitrogen [Mass/Vol] 16 mg/dL Normal 7-18 [facility] Comment on above: Performed By: #### L 506.1000, L501.6710, L501.9520, L500.4100, L509.1000, L101.9900, L501.9985, L100.0500, L500.4050, L506.0400 #### [facility] [address] [facility] [place], [place], [phone] (053) Hemoglobin A1con 11-06-2023 HbA1c (Bld) [Mass fraction] 6.4 % High 3.8-5.6 [facility] Comment on above: Result Comment: Norm al < 5.7 % Prediabetic 5.7 - 6.4 % Diabetic >or= 6.5 % Please note range changes. Performed By: #### L 506.1000, L501.6710, L501.9520, L500.4100, L509.1000, L101.9900, L501.9985, L100.0500, L500.4050, L506.0400 #### [facility] [address] [place], [address] Lipid Profileon 11-06-2023 Cholesterol [Mass/Vol] 159 mg/dL Normal 200 [facility] Comment on above: Result Comment: <200 mg/dL Desirable 200-240 mg/dL Borderline >240 mg/dL High Risk Performed By: #### L 506.1000, L501.6710, L501.9520, L500.4100, L509.1000, L101.9900, L501.9985, L100.0500, L500.4050, L506.0400 #### [facility] [address] [place], [address] Cholesterol in HDL [Mass/Vol] 91 mg/dL Normal [facility] Comment on above: Result Comment: The drugs N-Acetylcysteine and Metamizole may falsely depress this assay. Reference Range HDL <40 mg/dL Low HDL Cholesterol HDL >or= 60 mg/dL High HDL Cholesterol Performed By: #### L 506.1000, L501.6710, L501.9520, L500.4100, L509.1000, L101.9900, L501.9985, L100.0500, L500.4050, L506.0400 #### [facility] [address] [place], [address] Cholesterol in LDL [Mass/Vol] 54 mg/dL Normal 0-130 [facility] Comment on above: Performed By: #### L 506.1000, L501.6710, L501.9520, L500.4100, L509.1000, L101.9900, L501.9985, L100.0500, L500.4050, L506.0400 #### [facility] [address] [place], [address] Cholesterol in VLDL [Mass/Vol] 14 mg/dL Normal 5-40 [facility] Comment on above: Performed By: #### L 506.1000, L501.6710, L501.9520, L500.4100, L509.1000, L101.9900, L501.9985, L100.0500, L500.4050, L506.0400 #### [facility] [address] [place], [address] Triglyceride [Mass/Vol] 70 mg/dL Normal [facility] Comment on above: Result Comment: The drugs N-Acetylcysteine and Metamizole may falsely depress this assay. Serum Triglycerides Reference Interval Normal <150 mg/dL Borderline high 150 - 199 mg/dL High 200 - 499 mg/dL Very High > or = 500 mg/dL Performed By: #### L 506.1000, L501.6710, L501.9520, L500.4100, L509.1000, L101.9900, L501.9985, L100.0500, L500.4050, L506.0400 #### [facility] [address] [place], [address] T4 Free Directon 11-06-2023 T4 FREE DIRECT 1.61 ng/dL High 0.76-1.46 [facility] Comment on above: Performed By: #### L 506.1000, L501.6710, L501.9520, L500.4100, L509.1000, L101.9900, L501.9985, L100.0500, L500.4050, L506.0400 #### [facility] [address] [place], [address] Thyroid Stim Hormone (TSH)on 11-06-2023 TSH 10.500 uIU/mL High 0.358-3.740 [facility] Comment on above: Performed By: #### L 506.1000, L501.6710, L501.9520, L500.4100, L509.1000, L101.9900, L501.9985, L100.0500, L500.4050, L506.0400 #### [facility] [address] [place], [address] Vitamin D,25 Hydroxyon 11-05 Vitamin D 25-OH 27.0 ng/mL Normal [facility] Comment on above: Result Comment: Susie min D 25(OH) Status Range Deficiency <20 ng/mL (50nmol/L) Insufficiency 20 - 30 ng/mL (50 - 75 nmol/L) Sufficiency 30 - 100 ng/mL (75 - 250 nmol/L) Toxicity >100 ng/mL (>250 nmol/L) Performed By: #### L 506.1000, L501.6710, L501.9520, L500.4100, L509.1000, L101.9900, L501.9985, L100.0500, L500.4050, L506.0400 #### [facility] [address] [place], [address] Basophil percentageOrdered B y: Wil Jermaine on 10-25-2022 Bilirubin [Mass/Vol] 0.40 mg/dL 0.20-1.00 [facility] Comment on above: For patients on eltr ombopag therapy, use of [address] TBIL is not recommended. Chloride [Moles/Vol] 107 mmol/L 98-107 [facility] Cholesterol [Mass/Vol] 184 mg/dL <200 [facility] Comment on above: <200 mg/dL Desirable 200-240 mg/dL Borderline >240 mg/dL High Risk Glucose [Mass/Vol] 136 mg/dL 74-106 [facility] Comment on above: Fasting Glucose resu lt greater than or equal to 126 mg/dL suggests DIABETES MELLITUS per A.D.A. criteria. Potassium [Moles/Vol] 4.2 mmol/L 3.5-5.1 [facility] Protein [Mass/Vol] 7.4 g/dL 6.4-8.2 [facility] Sodium [Moles/Vol] 139 mmol/L 136-145 [facility] Triglyceride [Mass/Vol] 37 mg/dL <199 [facility] Comment on above: The drugs N-Acetylcy steine and Metamizole may falsely depress this assay.Serum Triglycerides Reference Interval Normal <150 mg/dL Borderline high 150 - 199 mg/dL High 200 - 499 mg/dL Very High > or = 500 mg/dL WBC (Bld) [#/Vol] 8.3 10*3/uL 4.4-11.0 [facility] Blood erythrocytes count (nu mber/volume)Ordered By: Wil Dean on 10-25-2022 RBC (Bld) [#/Vol] 4.19 10*6/uL 4.2-5.4 [facility] Blood hemoglobin measurement (mass/volume)Ordered By: Wil Dean on 10-25-2022 Hemoglobin (Bld) [Mass/Vol] 14.4 g/dL 12.0-15.0 [facility] Blood platelet mean volumeOr dered By: Wil Dean on 10-25-2022 Platelet mean volume (Bld) [Entitic vol] 8.7 fL 6.2-12.0 [facility] Determination of erythrocyte mean corpuscular volume (MCV)Ordered By: Wil Dean on 10-25-2022 MCV (RBC) [Entitic vol] 104.3 fL 81-99 [facility] Hematocrit Auto (Bld) [Volum e fraction]Ordered By: Wil Dean on 10-25-2022 Hematocrit (Bld) [Volume fraction] 43.7 % 37-47 [facility] - Chemistry and C hemistry - challengeOrdered By: Wilrei Dean on 10-25-2022 ALP [Catalytic activity/Vol] 47 U/L 45-117 [facility] ALT [Catalytic activity/Vol] 19 U/L 13-56 [facility] CO2 [Moles/Vol] 26.0 mmol/L 21.0-32.0 [facility] Free T4 [Mass/Vol] 1.31 ng/dL 0.76-1.46 [facility] Globulin (S) [Mass/Vol] 3.4 g/dL 2.2-4.2 [facility] Urea nitrogen/Creatinine [Mass ratio] 18.9 mg/mg 10-20 [facility] - Hematology and Cell countsOrdered By: Wil Dean on 10-25-2022 Erythrocyte distribution width (RBC) [Entitic vol] 44.0 fL 35.1-43.9 [facility] Erythrocyte distribution width (RBC) [Ratio] 11.5 % 11.6-14.6 [facility] MCH (RBC) [Entitic mass] 34.4 pg 27.0-32.0 [facility] Auto (RBC) [Mass/Vol]Or dered By: Wil Dean on 10-25-2022 MCHC (RBC) [Mass/Vol] 33.0 g/dL 32-36 [facility] No Panel InformationOrdered By: Wil Dean on 10-25-2022 Estimated GFR (MDRD) Amer 75 mL/min >60 [facility] Comment on above: GFR Calc Estimated GFR (MDRD) Non-Af Amer 62 mL/min >60 [facility] Comment on above: Non- GFR Calc Thyroid Stimulating Hormone (TSH) 3.63 uIU/mL 0.358-3.74 [facility] Vitamin D 25-Hydroxy 58.7 ng/mL [facility] Comment on above: Vitamin D 25(OH) Sta tus Range Deficiency <20 ng/mL (50nmol/L) Insufficiency 20 - 30 ng/mL (50 - 75 nmol/L) Sufficiency 30 - 100 ng/mL (75 - 250 nmol/L) Toxicity >100 ng/mL (>250 nmol/L) Platelets bldOrdered By: Mandy Dean on 10-25-2022 Platelets (Bld) [#/Vol] 334 10*3/uL 150-450 [facility] Serum or plasma albumin alexander urement (mass/volume)Ordered By: Wil Dean on 10-25-2022 Albumin [Mass/Vol] 4.0 g/dL 3.2-5.0 [facility] Serum or plasma albumin/glob ulin mass ratioOrdered By: Wil Dean on 10-25-2022 Albumin/Globulin [Mass ratio] 1.2 {ratio} 0.9-2.4 [facility] Serum or plasma calcium alexander urement (mass/volume)Ordered By: Wil Dean on 10-25-2022 Calcium [Mass/Vol] 9.3 mg/dL 8.5-10.1 [facility] Serum or plasma cholesterol in HDL measurement (mass/volume)Ordered By: Wil Dean on 10-25-2022 Cholesterol in HDL [Mass/Vol] 111 mg/dL >40 [facility] Comment on above: The drugs N-Acetylcy steine and Metamizole may falsely depress this assay. Reference Range HDL <40 mg/dL Low HDL Cholesterol HDL >or= 60 mg/dL High HDL Cholesterol Serum or plasma cholesterol in VLDL measurement (mass/volume)Ordered By: Wil Dean on 10-25-2022 Cholesterol in VLDL [Mass/Vol] 7 mg/dL 5-40 [facility] Serum or plasma creatinine m easurement (mass/volume)Ordered By: Wil Dean on 10-25-2022 Creatinine [Mass/Vol] 0.95 mg/dL 0.55-1.02 [facility] Comment on above: The validity of the calculated GFR & GFRAA in patients over 70 years has not been determined. Clinical correlation is essential. Serum or plasma low density lipoprotein (LDL) cholesterol measurement (mass/volume)Ordered By: Wil Dean on 10-25-2022 Cholesterol in LDL [Mass/Vol] 66 mg/dL 0-130 [facility] Serum or plasma urea nitroge n measurement (mass/volume)Ordered By: Wil Dean on 10-25-2022 Urea nitrogen [Mass/Vol] 18 mg/dL 7-18 [facility] Thin prep Papanicolaou smear with manual screeningOrdered By: Wil Dean on 10-25-2022 Thin prep Papanicolaou smear with manual screening 14 U/L 15-37 [facility] Thin prep Papanicolaou smear with manual screening 6 5-15 [facility] - Chemistry and C hemistry - challengeon 03-08-2022 Free T4 [Mass/Vol] 1.26 ng/dL 0.76-1.46 [facility] No Panel Informationon 03-08 Thyroglobulin Antibody < 1.0 IU/mL 0.0-0.9 [facility] Comment on above: Thyroglobulin Antibo dy measured by Yuliana CoulterMethodology Thyroid Stimulating Hormone (TSH) 3.45 uIU/mL 0.358-3.74 [facility] Vitamin D 25-Hydroxy 23.1 ng/mL [facility] Comment on above: Vitamin D 25(OH) Sta tus Range Deficiency <20 ng/mL (50nmol/L) Insufficiency 20 - 30 ng/mL (50 - 75 nmol/L) Sufficiency 30 - 100 ng/mL (75 - 250 nmol/L) Toxicity >100 ng/mL (>250 nmol/L) Serum or plasma thyroperoxid ase antibody assay (units/volume)on 03-08-2022 TPO Ab Qn [IU]/mL 0-34 [facility] Comment on above: Performed at: - [employer] [id number] Director: Jacquelin Rocha MD, Phone: [phone] at: [facility] [id number] Director: Ahmet Bang PhD, Phone: [phone] Thyroid stimulating immunogl obulins detectionon 03-08-2022 Thyroid stimulating immunoglobulins Ql (S) 0.96 IU/L 0.00-0.55 [facility] LABORATORYOrdered By: Elizabeth Alston on 01-31-2022 Free T4 [Mass/Vol] 1.49 ng/dL Invalid Interpretation Code 0.76 - 1.46 ng/dL AO ADM SS TSH Qn 2.79 m[IU]/L Invalid Interpretation Code 0.36 - 3.74 mcIU/mL AO ADM SS Laboratory - Chemistry and C hemistry - challengeOrdered By: Wil Dean on 12-14-2021 Free T4 [Mass/Vol] 1.49 ng/dL 0.76-1.46 [facility] No Panel InformationOrdered By: Wil Dean on 12-14-2021 Thyroid Stimulating Hormone (TSH) 8.74 uIU/mL 0.358-3.74 [facility] Basophil percentageon 2021 Bilirubin [Mass/Vol] 0.30 mg/dL 0.20-1.00 [facility] Work Phone: Comment on above: For patients on eltr ombopag therapy, use of Dim[address] TBIL is not recommended. Chloride [Moles/Vol] 108 mmol/L 98-107 [facility] Work Phone: Cholesterol [Mass/Vol] 172 mg/dL <200 [facility] Work Phone: Comment on above: <200 mg/dL Desirable 200-240 mg/dL Borderline >240 mg/dL High Risk Glucose [Mass/Vol] 111 mg/dL 74-106 [facility] Work Phone: [phone] Comment on above: Fasting Glucose resu lt from 100 to 125 mg/dL suggests IMPAIRED HOMEOSTASIS per A.D.A. criteria. Potassium [Moles/Vol] 3.8 mmol/L 3.5-5.1 [facility] Work Phone: [phone] Protein [Mass/Vol] 7.6 g/dL 6.4-8.2 [facility] Work Phone: [phone] Sodium [Moles/Vol] 140 mmol/L 136-145 [facility] Work Phone: [phone] Triglyceride [Mass/Vol] 48 mg/dL <199 [facility] Work Phone: [phone] Comment on above: The drugs N-Acetylcy steine and Metamizole may falsely depress this assay.Serum Triglycerides Reference Interval Normal <150 mg/dL Borderline high 150 - 199 mg/dL High 200 - 499 mg/dL Very High > or = 500 mg/dL WBC (Bld) [#/Vol] 9.1 10*3/uL 4.4-11.0 [facility] Work Phone: [phone] Blood erythrocytes count (nu mber/volume)on 08-11-2021 RBC (Bld) [#/Vol] 4.29 10*6/uL 4.2-5.4 [facility] Work Phone: [phone] Blood hemoglobin measurement (mass/volume)on 08-11-2021 Hemoglobin (Bld) [Mass/Vol] 14.6 g/dL 12.0-15.0 [facility] Work Phone: [phone] Blood platelet mean volumeon 08-11-2021 Platelet mean volume (Bld) [Entitic vol] 8.8 fL 6.2-12.0 [facility] Work Phone: [phone] Determination of erythrocyte mean corpuscular volume (MCV)on 08-11-2021 MCV (RBC) [Entitic vol] 101.2 fL 81-99 [facility] Work Phone: [phone] Hematocrit Auto (Bld) [Volum e fraction]on 08-11-2021 Hematocrit (Bld) [Volume fraction] 43.4 % 37-47 [facility] Work Phone: [phone] Laboratory - Chemistry and C hemistry - challengeon 08-11-2021 ALP [Catalytic activity/Vol] 44 U/L 45-117 [facility] Work Phone: [phone] ALT [Catalytic activity/Vol] 19 U/L 13-56 [facility] Work Phone: [phone] CO2 [Moles/Vol] 28.0 mmol/L 21.0-32.0 [facility] Work Phone: [phone] Free T4 [Mass/Vol] 1.59 ng/dL 0.76-1.46 [facility] Work Phone: [phone] Globulin (S) [Mass/Vol] 3.4 g/dL 2.2-4.2 [facility] Work Phone: [phone] Urea nitrogen/Creatinine [Mass ratio] 16.4 mg/mg 10-20 [facility] Work Phone: [phone] Laboratory - Hematology and Cell countson 08-11-2021 Erythrocyte distribution width (RBC) [Entitic vol] 43.7 fL 35.1-43.9 [facility] Work Phone: [phone] Erythrocyte distribution width (RBC) [Ratio] 11.6 % 11.6-14.6 [facility] Work Phone: [phone] MCH (RBC) [Entitic mass] 34.0 pg 27.0-32.0 [facility] Work Phone: [phone] MCHC Auto (RBC) [Mass/Vol]on 08-11-2021 MCHC (RBC) [Mass/Vol] 33.6 g/dL 32-36 [facility] Work Phone: [phone] No Panel Informationon 08-11 Estimated GFR (MDRD) Amer 93 mL/min >60 [facility] Work Phone: [phone] Comment on above: GFR Calc Estimated GFR (MDRD) Non-Af Amer 77 mL/min >60 [facility] Work Phone: Comment on above: Non- GFR Calc Thyroid Stimulating Hormone (TSH) 1.63 uIU/mL 0.358-3.74 [facility] Work Phone: Platelets bldon 08-11-2021 Platelets (Bld) [#/Vol] 326 10*3/uL 150-450 [facility] Work Phone: Serum or plasma albumin alexander urement (mass/volume)on 08-11-2021 Albumin [Mass/Vol] 4.2 g/dL 3.2-5.0 [facility] Work Phone: Serum or plasma albumin/glob ulin mass ratioon 08-11-2021 Albumin/Globulin [Mass ratio] 1.2 {ratio} 0.9-2.4 [facility] Work Phone: Serum or plasma calcium alexander urement (mass/volume)on 08-11-2021 Calcium [Mass/Vol] 9.3 mg/dL 8.5-10.1 [facility] Work Phone: Serum or plasma cholesterol in HDL measurement (mass/volume)on 08-11-2021 Cholesterol in HDL [Mass/Vol] 103 mg/dL >40 [facility] Work Phone: Comment on above: The drugs N-Acetylcy steine and Metamizole may falsely depress this assay. Reference Range HDL <40 mg/dL Low HDL Cholesterol HDL >or= 60 mg/dL High HDL Cholesterol Serum or plasma cholesterol in VLDL measurement (mass/volume)on 08-11-2021 Cholesterol in VLDL [Mass/Vol] 10 mg/dL 5-40 [facility] Work Phone: Serum or plasma creatinine m easurement (mass/volume)on 08-11-2021 Creatinine [Mass/Vol] 0.79 mg/dL 0.55-1.02 [facility] Work Phone: Comment on above: The validity of the calculated GFR & GFRAA in patients over 70 years has not been determined. Clinical correlation is essential. Serum or plasma low density lipoprotein (LDL) cholesterol measurement (mass/volume)on 08-11-2021 Cholesterol in LDL [Mass/Vol] 59 mg/dL 0-130 [facility] Work Phone: Serum or plasma urea nitroge n measurement (mass/volume)on 08-11-2021 Urea nitrogen [Mass/Vol] 13 mg/dL 7-18 [facility] Work Phone: Thin prep Papanicolaou smear with manual screeningon 08-11-2021 Thin prep Papanicolaou smear with manual screening 15 U/L 15-37 [facility] Work Phone: Thin prep Papanicolaou smear with manual screening 4 5-15 [facility] Work Phone: Whole blood hemoglobin A1c/t otal hemoglobin ratio (mass fraction)on 08-11-2021 HbA1c (Bld) [Mass fraction] 6.0 % 3.8-5.6 [facility] Work Phone: Comment on above: Normal < 5.7 % Predi abetic 5.7 - 6.4 % Diabetic >or= 6.5 % Please note range changes. LABORATORYOrdered By: Gene Brice on 04-18-2021 Blood Glucose Frequency Daily (04/18/21 1:55 PM) [facility] Work Phone: Vital Signs Date Time Vital Sign Value Performing Clinician Khalida pritchett 12-04-2023 11:47-0400 Body temperature 97.88 [degF] WIL DEAN MACHINE FEEDER RAW STOCK-SHIPPING ROOM SUPERVISOR [facility] 12-04-2023 11:47-0400 Diastolic Blood Pressure Non-Invasive 78 mm[Hg] WIL DEAN MACHINE FEEDER RAW STOCK[employer]SHIPPING ROOM SUPERVISOR [facility] 12-04-2023 11:47-0400 Heart rate 80 /min WIL DEAN MACHINE FEEDER RAW STOCK[employer]SHIPPING ROOM SUPERVISOR [facility] 12-04-2023 11:47-0400 Reason For Taking VItal Signs WIL DEAN MACHINE FEEDER RAW STOCKretsCloudSHIPPING ROOM SUPERVISOR [facility] 12-04-2023 11:47-0400 Respiratory rate 16 /min WIL JERMAINE MACHINE FEEDER RAW STOCK-SHIPPING ROOM SUPERVISOR [facility] 12-04-2023 11:47-0400 Systolic Blood Pressure Non-Invasive 123 mm[Hg] WIL JERMAINE MACHINE FEEDER RAW STOCK-SHIPPING ROOM SUPERVISOR [facility] 05-30-2023 11:04-0400 Body temperature 97.88 [degF] WIL PEREIRAMER MACHINE FEEDER RAW STOCK[employer]SHIPPING ROOM SUPERVISOR [facility] 05-30-2023 11:04-0400 Diastolic Blood Pressure Non-Invasive 74 mm[Hg] WIL PEREIRAMER MACHINE FEEDER RAW STOCK[employer]SHIPPING ROOM SUPERVISOR [facility] 05-30-2023 11:04-0400 Heart rate 75 /min WIL PEREIRAMER MACHINE FEEDER RAW STOCK[employer]SHIPPING ROOM SUPERVISOR [facility] 05-30-2023 11:04-0400 Systolic Blood Pressure Non-Invasive 124 mm[Hg] WIL PEREIRAMER MACHINE FEEDER RAW STOCK-SHIPPING ROOM SUPERVISOR [facility] Encounters Encounter Date Encounter Type Care Provider Facility Start: 09-09-2024 End: 09-09-2024 Patient encounter procedure Wil Dean SUCTION DREDGE DUMPING SUPERVISOR-C Work Phone: -Cardiovascular Services Work Phone: Start: 09-09-2024 End: 09-09-2024 ambulatory Wilcharlotte Pereiramer SUCTION DREDGE DUMPING SUPERVISOR-C Work Phone: -Cardiovascular Services Start: 09-08-2024 End: 09-09-2024 ambulatory Wilcharlotte Pereiramer SUCTION DREDGE DUMPING SUPERVISOR-C Work Phone: -Laboratory Start: 09-08-2024 End: 09-08-2024 Patient encounter procedure Wil Dean SUCTION DREDGE DUMPING SUPERVISOR-C Work Phone: -Laboratory Work Phone: Start: 09-08-2024 End: 09-08-2024 ambulatory SOPHIA DORIS Facility:[facility] Start: 07-16-2024 End: 07-16-2024 ambulatory Wil Dean SUCTION DREDGE DUMPING SUPERVISOR-C Work Phone: [facility] Work Phone: Start: 07-16-2024 End: 07-16-2024 Patient encounter procedure Wil Dean SUCTION DREDGE DUMPING SUPERVISOR-C Work Phone: -Laboratory Work Phone: Start: 07-16-2024 End: 07-16-2024 ambulatory MARIAHChris GEORGE Facility:[facility] Start: 06-10-2024 End: 06-10-2024 ambulatory WILCHARLOTTE DEAN MACHINE FEEDER RAW STOCK-SHIPPING ROOM SUPERVISOR Facility:[facility] Start: 05-31-2024 End: 05-31-2024 ambulatory Wil Dean SUCTION DREDGE DUMPING SUPERVISOR-C Work Phone: [facility] Work Phone: Start: 05-31-2024 End: 05-31-[address] Himanshu Reyes DO -Laboratory Work Phone: Start: 05-31-2024 End: 05-31-2024 ambulatory Himanshu Reyes Facility:[facility] Start: 05-12-2024 End: 05-16-2024 ambulatory WIL DEAN MACHINE FEEDER RAW STOCK-SHIPPING ROOM SUPERVISOR Facility:[facility] Start: 04-16-2024 ambulatory WIL GRANADOS MACHINE FEEDER RAW STOCK-SHIPPING ROOM SUPERVISOR Facility:[facility] Start: 04-14-2024 End: 04-14-[address] Himanshu Reyes DO -Laboratory Work Phone: Start: 04-14-2024 End: 04-14-2024 ambulatory Himanshu Reyes Facility:[facility] Start: 02-24-2024 End: 02-24-[address] Himanshu Ryees DO -Laboratory Work Phone: Start: 02-24-2024 End: 02-24-2024 ambulatory Wil Dean SUCTION DREDGE DUMPING SUPERVISOR Facility:[facility] Start: 01-26-2024 End: 01-26-2024 ambulatory Wil Dean SUCTION DREDGE DUMPING SUPERVISOR Facility:[facility] Start: 01-03-2024 End: 01-03-2024 ambulatory Wil Dean SUCTION DREDGE DUMPING SUPERVISOR Facility:[facility] Start: 12-12-2023 End: 12-12-2023 ambulatory Wil Dean SUCTION DREDGE DUMPING SUPERVISOR Facility:[facility] Start: 12-04-2023 End: 12-04-2023 ambulatory WIL Phelan JERMAINE MACHINE FEEDER RAW STOCK-SHIPPING ROOM SUPERVISOR Facility:[facility] Start: 12-04-2023 End: 12-04-2023 SAME DAY STAY WIL Phelan JERMAINE MACHINE FEEDER RAW STOCK-SHIPPING ROOM SUPERVISOR [facility] Start: 12-04-2023 End: 12-04-2023 ambulatory Wil Dean SUCTION DREDGE DUMPING SUPERVISOR Facility:[facility] Start: 11-06-2023 End: 11-06-2023 ambulatory Wil Dean SUCTION DREDGE DUMPING SUPERVISOR Facility:[facility] Start: 08-13-2023 ambulatory WIL Phelan GUERITA GRANADOS MACHINE FEEDER RAW STOCK-SHIPPING ROOM SUPERVISOR Facility:[facility] Start: 06-06-2023 End: 06-06-2023 ambulatory [facility] Work Phone: Start: 06-06-2023 End: 06-06-2023 Patient encounter procedure [facility]-Radiology, [facility] Work Phone: Start: 05-30-2023 End: 05-30-2023 ambulatory WIL Phelan JERMAINE MACHINE FEEDER RAW STOCK-SHIPPING ROOM SUPERVISOR Facility:[facility] Start: 05-30-2023 End: 05-30-2023 SAME DAY STAY WIL Phelan JERMAINE MACHINE FEEDER RAW STOCK[employer]SHIPPING ROOM SUPERVISOR [facility] Start: 11-19-2022 End: 11-19-2022 ambulatory [facility] Work Phone: Start: 11-19-2022 End: 11-19-2022 Patient encounter procedure [facility]-Outpatient Bone Densitometry Work Phone: Start: 10-28-2022 End: 10-28-2022 ambulatory WIL Zhane JERMAINE MACHINE FEEDER RAW STOCK-SHIPPING ROOM SUPERVISOR Facility:[facility] Start: 10-25-2022 End: 10-25-2022 Patient encounter procedure [facility]-Laboratory Work Phone: Start: 03-08-2022 End: 03-08-2022 ambulatory [facility] Work Phone: Start: 03-08-2022 End: 03-08-2022 Patient encounter procedure [facility]-Laboratory Start: 01-31-2022 End: 01-31-2022 Patient encounter procedure WIL Phelan JERMAINE MACHINE FEEDER RAW STOCK-SHIPPING ROOM SUPERVISOR [facility] Start: 12-14-2021 End: 12-14-2021 ambulatory [facility] Work Phone: Start: 12-14-2021 End: 12-14-2021 Patient encounter procedure [facility]-Laboratory Start: 10-30-2021 End: 10-30-2021 ambulatory [facility] Work Phone: Start: 10-30-2021 End: 10-30-2021 Patient encounter procedure [facility]-Outpatient Breast Imaging Start: 08-11-2021 End: 08-11-2021 Patient encounter procedure [facility]-Laboratory Start: 07-05-2021 End: 07-05-2021 Patient encounter procedure WIL Phelan JERMAINE MACHINE FEEDER RAW STOCK-SHIPPING ROOM SUPERVISOR [facility] Start: 05-10-2021 End: 05-10-2021 Patient encounter procedure WIL Phelan JERMAINE MACHINE FEEDER RAW STOCK-SHIPPING ROOM SUPERVISOR [facility] Start: 04-18-2021 End: 04-18-2021 Patient encounter procedure WIL S JERMAINE MACHINE FEEDER RAW STOCK-SHIPPING ROOM SUPERVISOR [facility] Start: 05-23-2020 End: 05-23-2020 Patient encounter procedure [facility] Start: 05-02-2020 End: 05-02-2020 Patient encounter procedure [facility]ENICE BHATIA [facility] Start: 09-07-2019 End: 09-07-2019 Subsequent hospital visit by physician Ry Lawson Work Phone: [phone] [address] E[facility] Comment on above: Syncope, unspecified syncope type Procedures Date Procedure Procedure Detail Performing Clinician Start: 05-31-2024 Vitamin D, 25-hydrox y measurement Wil Dean SUCTION DREDGE DUMPING SUPERVISOR-C Work Phone: Comment on above: Vitamin D StatusDefi ciency: <20 ng/mL (50nmol/L)Insufficiency: 20-30 ng/mL (50-75 nmol/L)Sufficiency: 30-100 ng/mL (75-250 nmol/L)Toxicity: >100 ng/mL (>250 nmol/L) Start: 06-06-2023 Plain chest X-ray Start: 11-19-2022 Dual energy X-ray absorptiometry Start: 11-19-2022 Screening mammography Start: 10-30-2021 Screening mammography Appendectomy WIL DEAN MACHINE FEEDER RAW STOCK-SHIPPING ROOM SUPERVISOR Excision of bunion WIL VELASCO MACHINE FEEDER RAW STOCK-SHIPPING ROOM SUPERVISOR Comment on above: [place] Tear of meniscus of knee (disorder) WIL DEAN MACHINE FEEDER RAW STOCK-SHIPPING ROOM SUPERVISOR Comment on above: repaired Plan of Treatment Date Care Activity Detail Author Start: 11-02-2019 Influenza vaccination Flu vaccine (# 1) [place], [place] Start: 09-15-2005 Screening for malign ant neoplasm of breast Breast cancer screen [place] Start: 09-15-2005 Screening for malign ant neoplasm of colon Colon cancer screen colonoscopy [place] Start: 09-15-2005 Shingles Vaccine (1 of 2) Lopez gles Vaccine (1 of 2) [place] Start: 1995 Diabetes screen Diabetes screen [place], [place] Start: 09-15-1976 Screening for malign ant neoplasm of cervix Cervical cancer screen [place] Start: 09-15-1974 DTaP/Tdap/Td vaccine (1 - Tdap) DTaP/Tdap/Td vaccine (1 - Tdap) [place] Start: 09-15-1970 [facility] [place] [place] Start: 09-15-1965 Lipid panel Lipid screen [place], [place] Start: 09-15-1961 Pneumococcal 0-64 ye ars Vaccine (1 of 1 - PPSV23) Pneumococcal 0-64 years Vaccine (1 of 1 - PPSV23) [place], [place] Start: 1955 Hepatitis C screening Hepatitis C sc reen [place] End: 09-07-2019 Cardiac event monitor Cardiac event monitor Cardiac Services Routine Syncope, unspecified syncope type 1 Occurrences starting 09/07/2019 until 09/07/2019 [place] Comment on above: 1 Occurrences starti ng 09/07/2019 until 09/07/2019 Immunizations Immunization Date Immunization Notes Care Provider Willi goodwin 11-01-2023 influenza virus vacc ine, unspecified formulation WIL DEAN MACHINE FEEDER RAW STOCK-SHIPPING ROOM SUPERVISOR [facility] 11-01-2023 SARS-CoV-2 (COVID-19 ) [id number] WIL DEAN MACHINE FEEDER RAW STOCK-SHIPPING ROOM SUPERVISOR [facility] 12-05-2022 influenza virus vacc ine, unspecified formulation WIL DEAN MACHINE FEEDER RAW STOCK-SHIPPING ROOM SUPERVISOR [facility] 12-05-2022 [id number](tozinam angelia 5y-11y)bi vac WLI DEAN MACHINE FEEDER RAW STOCK-SHIPPING ROOM SUPERVISOR [facility] 12-05-2021 influenza virus vacc ine, unspecified formulation WIL DEAN MACHINE FEEDER RAW STOCK-SHIPPING ROOM SUPERVISOR [facility] 06-06-2021 SARS-CoV-2 mRNA (hhteyhgooad-abiz-uqskff e) vaccine WIL DEAN MACHINE FEEDER RAW STOCK-SHIPPING ROOM SUPERVISOR [facility] 02-08-2021 pneumococcal conjuga te vaccine, 13 valent WIL JERMAINE MACHINE FEEDER RAW STOCK-SHIPPING ROOM SUPERVISOR [facility] 01-15-2021 SARS-CoV-2 mRNA (tozinameran) vaccine WIL PEREIRAMER MACHINE FEEDER RAW STOCK-SHIPPING ROOM SUPERVISOR [facility] Comment on above: Result Comment: 2021: [id number] 11-16-2020 influenza virus vacc ine, unspecified formulation WIL JERMAINE MACHINE FEEDER RAW STOCK-SHIPPING ROOM SUPERVISOR [facility] 05-23-2020 SARS-CoV-2 mRNA (tozinameran) vaccine WIL JERMAINE MACHINE FEEDER RAW STOCK-SHIPPING ROOM SUPERVISOR [facility] 05-02-2020 SARS-CoV-2 mRNA (tozinameran) vaccine WIL JERMAINE MACHINE FEEDER RAW STOCK-SHIPPING ROOM SUPERVISOR [facility] 01-20-2020 zoster vaccine recombinant WIL PEREIRAMER MACHINE FEEDER RAW STOCK-SHIPPING ROOM SUPERVISOR [facility] 11-11-2019 influenza virus vacc ine, unspecified formulation WIL JERMAINE MACHINE FEEDER RAW STOCK-SHIPPING ROOM SUPERVISOR [facility] 11-11-2019 zoster vaccine recombinant WIL PEREIRAMER MACHINE FEEDER RAW STOCK-SHIPPING ROOM SUPERVISOR [facility] 12-28-2018 influenza virus vacc ine, unspecified formulation WIL PEREIRAMER MACHINE FEEDER RAW STOCK-SHIPPING ROOM SUPERVISOR [facility] 12-28-2018 pneumococcal polysaccharide vaccine, 23 valent WIL DEAN MACHINE FEEDER RAW STOCK-SHIPPING ROOM SUPERVISOR [facility] 08-28-2018 influenza virus vacc ine, unspecified formulation WIL JERMAINE MACHINE FEEDER RAW STOCK-SHIPPING ROOM SUPERVISOR [facility] 11-19-2017 influenza virus vacc ine, unspecified formulation WIL JERMAINE MACHINE FEEDER RAW STOCK-SHIPPING ROOM SUPERVISOR [facility] 11-26-2016 influenza virus vacc ine, unspecified formulation WIL JERMAINE MACHINE FEEDER RAW STOCK-SHIPPING ROOM SUPERVISOR [facility] 10-27-2016 influenza virus vacc ine, unspecified formulation WIL JERMAINE MACHINE FEEDER RAW STOCK-SHIPPING ROOM SUPERVISOR [facility] 12-01-2015 influenza, injectabl e, quadrivalent, preservative free [facility] 12-01-2015 influenza, seasonal, injectable [facility] 03-22-2015 hepatitis A vaccine, adult dosage WIL DEAN MACHINE FEEDER RAW STOCK-SHIPPING ROOM SUPERVISOR [facility] 12-27-2014 influenza, injectabl e, quadrivalent, preservative free [facility] 12-27-2014 influenza, seasonal, injectable [facility] 11-01-2014 influenza virus vacc ine, unspecified formulation WIL JERMAINE MACHINE FEEDER RAW STOCK-SHIPPING ROOM SUPERVISOR [facility] 01-13-2014 influenza, injectabl e, quadrivalent, preservative free [facility] 01-13-2014 influenza, seasonal, injectable [facility] 01-05-2014 adenovirus, type 4 a nd type 7, live, oral WIL DEAN MACHINE FEEDER RAW STOCK-SHIPPING ROOM SUPERVISOR [facility] 01-05-2014 yellow fever vaccine WIL DEAN MACHINE FEEDER RAW STOCK-SHIPPING ROOM SUPERVISOR [facility] 01-01-2014 influenza virus vacc ine, unspecified formulation WIL DEAN MACHINE FEEDER RAW STOCK-SHIPPING ROOM SUPERVISOR [facility] 10-15-2013 hepatitis A vaccine, adult dosage WIL DEAN MACHINE FEEDER RAW STOCK-SHIPPING ROOM SUPERVISOR [facility] 10-15-2013 tetanus toxoid, redu alfa diphtheria toxoid, and acellular pertussis vaccine, adsorbed WIL DEAN MACHINE FEEDER RAW STOCK-SHIPPING ROOM SUPERVISOR [facility] 10-08-2013 hepatitis A vaccine, adult dosage WIL DEAN MACHINE FEEDER RAW STOCK-SHIPPING ROOM SUPERVISOR [facility] 10-08-2013 poliovirus vaccine, inactivated WIL DEAN MACHINE FEEDER RAW STOCK-SHIPPING ROOM SUPERVISOR [facility] 10-08-2013 tetanus toxoid, redu alfa diphtheria toxoid, and acellular pertussis vaccine, adsorbed WIL DEAN MACHINE FEEDER RAW STOCK-SHIPPING ROOM SUPERVISOR [facility] 03-10-2013 Influenza virus vaccine [facility] Payers Date Payer Category Payer Medicare [id number] 2023 Self-pay [id number] 2021 Unknown [id number] 2020 Medicare [id number] 2019 Unknown [employer] [address] xxxxxxxxxxxx 2019-Present [phone] [address] [place] [address] xxxxxxxxxxxx [id number] 2016 Unknown [id number] 1955 Unknown [id number] 1955 Unknown [id number] [id number] 1955 Unknown [id number] 2.840.1.496579.3.579.2.627 1955 Unknown [id number] [id number] 1955 Unknown [id number] [id number] 1955 Unknown [id number] [id number] 1955 Unknown [id number] 2.16.840.1.845366.3.579.2.627 Unknown [id number] 2.16.840.1.482601.3.579.2.462 Unknown [id number] 2.16.840.1.958606.3.579.2.462 Unknown [id number] 2.16.840.1.542630.3.579.2.462 Unknown [id number] 2.16.840.1.917871.3.579.2.462 Unknown [id number] 2.16.840.1.341505.3.579.2.462 Unknown [id number] 2.16.840.1.617797.3.579.2.462 Unknown [id number] 2.16.840.1.821628.3.579.2.462 Unknown [id number] 2.16.840.1.555314.3.579.2.462 Unknown [id number] 2.16.840.1.317169.3.579.2.462 Unknown [id number] [id number]2 Unknown [id number] [id number] Unknown [id number] Social History Date Type Detail Facility Start: 09-07-2019 End: 09-06-1999 Tobacco smoking status NHIS Current some day smoker [place] End: 09-06-1999 History of tobacco use Cigarette [place] Start: 09-07-2019 Alcohol intake Current drinke r of alcohol (finding) [place] Start: 09-06-2019 History SDOH Alcohol Frequency 1 [place] Start: 09-07-2019 Tobacco Comment 3 days a week/ in the summer [place] Start: 09-07-2019 Alcohol Comment ocassional [place], [place] Sex Assigned At Not on file [place] Exposure to SARS-CoV -2 (event) Unable to assess [place] Start: 08-09-2016 End: 01-26-2020 Ex-smoker (finding) [facility] Start: 1955 Sex Assigned At Female A [facility] Start: 08-09-2016 End: 08-09-2016 Tobacco smoking status NHIS Unknown if ever smoked [facility] Start: 06-02-2024 Sex Female (finding) [facility] Clinical Notes 12-04-2023 LaboratoryLaboratoryLaboratoryLaboratory Note Date & Type Note Facility 12-04-2023 Nurse Progress note patient tolerated prolia injection without signs or symptoms of a reaction Digitally Signed by Geena Gonzalez RN on 12/04/2023 12:01 PM [facility] Evaluation + Plan note Future Appointments Appointment Date:05/01/2021 10:00:00 AM Scheduled Provider: Location:[facility] Appointment Type:DB Diabetic Individual Visit Appointment Date:05/03/2021 09:00:00 AM Scheduled Provider:WIL DEAN Location:[facility] Appointment Type:PC OV Appointment Date:05/10/2021 11:30:00 AM Scheduled Provider: Location:[facility] Appointment Type:NUT Diet Visit Individual Future Scheduled [id number] Hemoglobin 05/02/21Complete Metabolic Panel 05/02/21 [facility] Evaluation + Plan note Future Appointments Appointment Date:08/13/2021 09:30:00 AM Scheduled Provider: Location:[facility] Appointment Type:DB Diabetic Individual Visit Future Scheduled [id number] Hemoglobin 05/02/21Complete Metabolic Panel 05/02/21 [facility] Evaluation + Plan note Future Appointments Appointment Date:08/02/2021 08:30:00 AM Scheduled Provider: Location:[facility] Appointment Type:NUT Diet Visit Individual Appointment Date:08/13/2021 09:30:00 AM Scheduled Provider: Location:[facility] Appointment Type:DB Diabetic Individual Visit Future Scheduled [id number] Hemoglobin 05/02/21Complete Metabolic Panel 05/02/21 [facility] Evaluation + Plan note Future Appointments Appointment Date:02/11/2022 09:30:00 AM Scheduled Provider: Location:[facility] Appointment Type:DB Diabetic Individual Visit [facility] Evaluation + Plan note Future Appointments Appointment Date:08/13/2023 09:30:00 AM Scheduled Provider: Location:[facility] Appointment Type:MEDS - Diabetic Individual Visit [facility] Evaluation + Plan note Future Appointments Appointment Date:12/31/2023 09:30:00 AM Scheduled Provider: Location:[facility] Appointment Type:MEDS - Diabetic Individual Visit Future Scheduled TestsBasic Metabolic Panel 12/08/23Thyroid Stimulating Hormone 10/28/23Thyroid Stimulating Hormone 12/08/23Free T4 10/28/23Free T4 12/08/23A1C Hemoglobin 10/28/23Complete Blood Count 10/28/23Lipid Profile 10/28/23Vitamin D Level 10/28/23Complete Metabolic Panel 10/28/23 [facility] Evaluation note No assessment inform ation available [facility] Work Phone: Hospital course Narrative No data available for this section [facility] Discharge instructions No data available for this section [facility] Progress note No data available for this section [facility] Reason for referral (narrative) No reason for referral information available [facility] Work Phone: Reason for Referral Status Reason Specialty Diagnoses / Procedures Referre d By Contact Referred To Contact Open Diagnoses Syncope, unspecified syncope type Procedures Cardiac event monitor Ry Lawson MD [address] [place] [address], [address] [place] [address] Assessments Diagnosis Syncope, unspecified syncope type Advance Directives No Advanced Directives Records FoundDocuments on File Type Date Recorded 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 Advance Directives and Living Will Power of Wind Projects Supervisor Advance Directive Response Recorded Date/ Time Advance Directives No November 6:52am Living Will No August 09, 2016 1 2:09pm Power of Wind Projects Supervisor No August 09, 2016 12:09pm Advance Directive Response Recorded Date/ Time Advance Directives No November 5:52am Living Will No August 09, 2016 1 1:09am Power of Wind Projects Supervisor No August 09, 2016 11:09am Advance Directive Response Recorded Date/ Time Advance Directives No November 6:52am Summary Purpose Family History No Family History Records Found No data available for this section No Family History Records Found No data available for this section No Family History Records FoundNo Family History Records Found Chief Complaint and Reason for Visit Chief Complaint SCREENING Chief Complaint OSTEOPOROSIS, SCREEN ING Chief Complaint Admit Date DM2 September 09, 2024 7:40 am Additional Source Comments INFORMATION SOURCE (unrecogn ized section and content) DATE CREATED AUTHOR 05/31/[address] [facility] DATE CREATED AUTHOR AUTHOR'S ORGANIZ ATION 08/14/2023 [facility] ([place]) DATE CREATED AUTHOR AUTHOR'S ORGANIZ ATION 06/13/2024 [facility] DATE CREATED AUTHOR AUTHOR'S ORGANIZ ATION 09/19/2024 [facility] Care Team (unrecognized sect ion and content) Team Status: Active Member Role Status Dates Wil Dean SUCTION DREDGE DUMPING SUPERVISOR, SUCTION DREDGE DUMPING SUPERVISOR-C Family Provider Active Wil Dean NP, SUCTION DREDGE DUMPING SUPERVISOR-C Primary Care Provider Active Team Status: Inactive Member Role Status Dates Wil Dean NP, SUCTION DREDGE DUMPING SUPERVISOR-C Primary Care Pro vider, Attending Provider, Referring Provider Active Team Status: Inactive Member Role Status Dates Wil Dean NP, SUCTION DREDGE DUMPING SUPERVISOR-C Primary Care Provider Active LISA GILMORE Attending Provider Active Team Status: Inactive Member Role Status Dates Wil Dean NP, SUCTION DREDGE DUMPING SUPERVISOR-C Primary Care Provider Active BO MOORE NP-C Attending Provider, Referring P pratibha Active Team Status: Inactive Member Role Status Dates Wil Dean NP, SUCTION DREDGE DUMPING SUPERVISOR-C Primary Care Provider Active Start: February 24, 2024 End: February 24, 2024 Dr. Himanshu Reyes DO Attending Provider Active Start: February 24, 2024 End: February 24, 2024 Dr. Himanshu Reyes DO Referring Provider Active Start: February 24, 2024 End: February 24, 2024 Team Status: Inactive Member Role Status Dates Wil Dean NP, SUCTION DREDGE DUMPING SUPERVISOR-C Primary Care Provider Active Start: April 14, 2024 End: April 14, 2024 Dr. Himanshu Reyes DO Attending Provider Active Start: April 14, 2024 End: April 14, 2024 Dr. Himanshu Reyes DO Referring Provider Active Start: April 14, 2024 End: April 14, 2024 Team Status: Inactive Member Role Status Dates Wil Dean NP, SUCTION DREDGE DUMPING SUPERVISOR-C Primary Care Provider Active Start: May 31, 2024 End: May 31, 2024 Dr. Himanshu Reyes DO Attending Provider Active Start: May 31, 2024 End: May 31, 2024 Dr. Himanshu Reyes DO Referring Provider Active Start: May 31, 2024 End: May 31, 2024 Team Status: Active Member Role Status Dates Wil Dean SUCTION DREDGE DUMPING SUPERVISOR, SUCTION DREDGE DUMPING SUPERVISOR-C Primary Care Provider Active Team Status: Inactive Member Role Status Dates Wil Dean SUCTION DREDGE DUMPING SUPERVISOR, SUCTION DREDGE DUMPING SUPERVISOR-C Primary Care Provider Active Start: July 16, 2024 End: July 16, 2024 DONATO GONSALEZ Attending Provider Active Sta rt: July 16, 2024 End: July 16, 2024 DONATO GONSALEZ Referring Provider Active Sta rt: July 16, 2024 End: July 16, 2024 Team Status: Active Member Role/Relationship Status Dates Wil Dean SUCTION DREDGE DUMPING SUPERVISOR, SUCTION DREDGE DUMPING SUPERVISOR-C Primary Care Provider Active Team Status: Inactive Member Role/Relationship Status Dates Wil Dean SUCTION DREDGE DUMPING SUPERVISOR, SUCTION DREDGE DUMPING SUPERVISOR-C Primary Care Provider Active Start: May 31, 2024 End: May 31, 2024 Dr. Himanshu Reyes DO Attending Provider Active Start: May 31, 2024 End: May 31, 2024 Dr. Himanshu Reyes DO Referring Provider Active Start: May 31, 2024 End: May 31, 2024 Team Status: Inactive Member Role/Relationship Status Dates Wil Dean SUCTION DREDGE DUMPING SUPERVISOR, SUCTION DREDGE DUMPING SUPERVISOR-C Primary Care Provider Active Start: July 16, 2024 End: July 16, 2024 DONATO GONSALEZ Attending Provider Active Sta rt: July 16, 2024 End: July 16, 2024 DONATO GONSALEZ Referring Provider Active Sta rt: July 16, 2024 End: July 16, 2024 Team Status: Inactive Member Role/Relationship Status Dates DONATO GONSALEZ Attending Provider Active Sta rt: September 08, 2024 End: September 08, 2024 DONATO GONSALEZ Referring Provider Active Sta rt: September 08, 2024 End: September 08, 2024 Wil Dean SUCTION DREDGE DUMPING SUPERVISOR, SUCTION DREDGE DUMPING SUPERVISOR-C Primary Care Provider Active Start: September 08, 2024 End: September 08, 2024 Team Status: Active Member Role/Relationship Status Dates Wil Dean SUCTION DREDGE DUMPING SUPERVISOR, SUCTION DREDGE DUMPING SUPERVISOR-C Primary Care Provider Active Start: September 09, 2024 DONATO GONSALEZ Attending Provider Active Sta rt: September 09, 2024 DONATO GONSALEZ Referring Provider Active Sta rt: September 09, 2024 Team Status: Inactive Member Role/Relationship Status Dates Wil Dean SUCTION DREDGE DUMPING SUPERVISOR, SUCTION DREDGE DUMPING SUPERVISOR-C Primary Care Provider Active Start: September 09, 2024 End: September 09, 2024 DONATO GONSALEZ Attending Provider Active Sta rt: September 09, 2024 End: September 09, 2024 DONATO GONSALEZ Referring Provider Active Sta rt: September 09, 2024 End: September 09, 2024 Goals (unrecognized section and content) Goals may be documented in a n alternate section Care Team (unrecognized sect ion and content) Care Team Personnel Name: JERMAINEORLYWIL S MACHINE FEEDER RAW STOCK-SHIPPING ROOM SUPERVISOR Position: P4 Advanced Practice Nurse Member Role: Primary Care Physician Address: Address: [address] Care Team Related Persons Name: ANOOP RUDOLPH FOR RECORDS PERTAINING TO PATIENTS WHO ARE OR HAVE BEEN ENROLLED IN A CHEMICAL DEPENDENCY/SUBSTANCEABUSE PROGRAM, SOME INFORMATION MAY BE OMITTED. This clinical summary was aggregated from multiple sources. Caution should be exercised in using it in the provision of clinical care. This summary normalizes information from multiple sources, and as a consequence, information in this document may materially change the coding, format and clinical context of patient data. In addition, data may be omitted in some cases. CLINICAL DECISIONS SHOULD BE BASED ON THE PRIMARY CLINICAL RECORDS. [employer] provides no warranty or guarantee of the accuracy or completeness of information in this document.
[2024-10-22 08:44] LABS: Creatinine, Urine (random) 132.00 mg/dL (28.00-217.00); Microalbumin,Random Urine < 12.0 mg/L (<20 mg/L)
[2024-10-22 08:56] LABS: AST(SGOT) 19 U/L (<=31); Alanine Aminotransfer ALT/SGPT 14 U/L (<=34); Albumin, Serum 4.2 g/dL (3.4-4.8); Alkaline Phosphatase 45 U/L (35-104); Anion Gap 11 (5-15); BUN 19 mg/dL (4-19); BUN/Creat Ratio 19.3 RATIO (10-20); Calcium,Total 9.6 mg/dL (7.6-11.0); Carbon Dioxide 24.9 mmol/L (21.0-32.0); Chloride 104 mmol/L (98-108); Globulin 2.6 g/dL (2.2-4.2); Glucose 160 mg/dL (70-99); Potassium 4.5 mmol/L (3.3-5.1)
== END | disposition home or self-care (01) ==
LOC: LAB 07:19
PROVIDERS: PCP Nurse Practitioner Primary Care
DX: E89.0 Postprocedural hypothyroidism (principal); E11.65 Type 2 diabetes mellitus with hyperglycemia
CPT/HCPCS: 36415; 80053; 82043; 82570; 83036; 84443

== ENCOUNTER → 2024-12-09 | Outpatient (CLI) | payer MEDICARE, BC, SELFPAY ==
--- NOTE | 2024-12-09 16:08 | BI_ITS ---
EXAM: SCRN MAMM (CAD)W/RUSTY BILAT DATE: 12/09/2024 CLINICAL HISTORY: F, Age 69 y/o , SCREENING TECHNIQUE: Procedure Code: [id number] Modality: MG Procedure: SCRN MAMM (CAD)W/RUSTY BILAT COMPARISON: Prior exam(s) dated 12/04/2023, 11/19/2022, 10/30/2021. FINDINGS: TISSUE DENSITY: The breasts are heterogeneously dense, which may obscure small masses. The mammogram demonstrates that the patient has dense breasts. Supplemental screening with whole breast ultrasound or MRI may be considered for further evaluation. Bilateral Breast Mammographic Findings: No significant masses, calcifications or other abnormalities are identified. BI/SCRN MAMM (CAD)W/RUSTY BILAT IMPRESSION: The mammogram demonstrates that the patient has dense breasts. Supplemental scr eening with whole breast ultrasound or MRI may be considered for further evaluation. OVERALL FINAL ASSESSMENT BI-RADS 1: NEGATIVE. RECOMMENDATION: Routine annual follow-up in 1 Year Additional Recommendation none A letter with findings and recommendations will be mailed to the patient. Reading Location: [id number]
--- NOTE | 2024-12-09 16:08 | BD_ITS ---
PROCEDURE: DEXA BONE DENSITY STUDY 12/09/2024 REASON FOR EXAM: F, age 69 y/o . Patient is postmenopausal. TECHNIQUE: Procedure Code: BDDBD Modality: DX Procedure: DEXA BONE DENSITY STUDY COMPARISON: DEXA examination dated 11/19/2022 FINDINGS: BMD and T-SCORES Lumbar spine: 0.782 g/cm2, T-score -2.4 Levels: L1 through L4 Change from prior: There has been a decrease in the bone mineral density of the lumbar spine by 0.6% since the prior study dated 11/19/2022. Left femoral neck: 0.667 g/cm2, T-score -1.6 Left total hip: 0.780 g/cm2, T-score -1.3 Change from prior: There has been a decrease in the bone mineral density of the left hip by 0.5% since the prior study dated 11/19/2022. Right femoral neck: 0.726 g/cm2, T-score -1.1 Right total hip: 0.787 g/cm2, T-score -1.3 Change from prior: There has been a decrease in the bone mineral density of the right hip by 1.1% since the prior study dated 11/19/2022. The World Health Organization has defined the following categories based on bone density: Normal bone density: T-score equal to or greater than -1.0 Osteopenia: T-score between -1.0 and -2.5 Osteoporosis: T-score equal to or less than -2.5 FRAX (or Comparable) Fracture Risk Assessment: 10 Year Probability of Fracture: Major Osteoporotic Fracture: 9.5% Hip Fracture: 1.5% (Note: FRAX is not to be reported in setting of normal range bone density, osteoporosis on DEXA, known history of osteoporosis, prior osteoporotic hip or vertebral fracture, or for any patient undergoing pharmacological treatment for bone loss.) The National Osteoporosis Foundation (NOF) recommends pharmacological treatment for patients with a FRAX 10-year risk of 3% or higher for a hip fracture, or 20% or higher for a major osteoporotic fracture, to prevent osteoporosis and reduce fracture risk. The patient does meet the pharmacological treatment recommendations for prevention of osteoporosis. BD/Dexa Bone Density Study IMPRESSION: OSTEOPENIA. Recommend follow-up as clinically warranted. Reading Location: [id number]
== END | disposition home or self-care (01) ==
LOC: OPBD 16:06
PROVIDERS: PCP Nurse Practitioner Primary Care; Referring Provider Nurse Practitioner Primary Care; Visit Provider Nurse Practitioner Primary Care
DX: Z12.31 Encounter for screening mammogram for malignant neoplasm of breast (principal); Z78.0 Asymptomatic menopausal state; Z13.820 Encounter for screening for osteoporosis
CPT/HCPCS: 77063; 77067; 77080

== ENCOUNTER 2024-12-16 10:40 | Outpatient (RCR) | payer MEDICARE, BC, SELFPAY ==
--- NOTE | 2024-12-16 12:01 | HP.PTEVAL ---
Patient's Visit Information Visit Information Visit Information: TESS RUDOLPH is a 69 year old F referred to Physical Therapy by BRENDA Guerra with a diagnosis of BPPV. Date of Evaluation: 12/16/24 Physical Therapist: Abimael Lewis, DPT, OCS, CSCS Visit Plan Frequency: Every Other Week Duration: 4-6 Weeks Plan: weekly to very other if needed to treat and monitor vertigo No positives today so is to wean off BD and see how next couple weeks go, f/u 3 weeks as needed. to check positional and symptoms. Subjective Subjective: Veertigo described as starting in FLA last April rolling in bed. Fell back asleep and then it was gone. Happened once or twice before that. Now back in August got it for a couple days and then down for a whole day with moving head, typically looking down. nausea, spinning, lightheaded a couple times in August. Saw rich and telegraph repeater installer cleared her, ELENA andradeeed her, describes Luiz maneuver. Doing Luiz at home daily. This last week has been off here adn there. Gt up at night feels a little worse. Generally moving head starts it. Quick looking up while playing cards caused it once. no other goofy symptoms or numbness tingling. Sleep is OK. Stress adn fatigue make her worse. Occasionally up from bowl with hair done. Avoids or gets uneasy with trips to golf. Pt has been pretty good for last 3 weeks since starting BD at home. Objective Objective: Walks into adn out of PT I, trasnfers I bed and chair. cervical aROM WFL and without pain. UE AROM WFL adn no myotomal or sensory problems in UE. - B hallpike smitha - roll test Oculomotor: no nystagmus with gaz or had shake. - skew eye deviation - ocular tilt DVA 2 lines from SVA - head thrust Pursuit adn saccades normal and asymptomatic VOR H and V asymptomatic MSQ positions all good today without symptoms Overall no objective signs today of vestibular but has been doing BD for 3 weeks adn has felt good for that period of time. Descirbes Subjctive BPPV well. Balance/Special Test Scores Functional Gait Assessment Score: 30 % Disability: 0 Dizziness Score: 38 Goals Goal 1:: Abolish dizzyness for 3 weeks Goal Time Frame: 4-6 Weeks Goal 2:: Pt feel confident in travels and golf without fear of returning dizzynss. Goal Time Frame: 4-6 Weeks Rehabilitation Potential Physical Therapy Diagnosis: H/o dizzyness. Fear causing deficits. Sems like previous BPPV possibly resolved. Rehabilitation Potential: Good Anticipated Interventions Patient/Client Instruction: Educate patient on: Condition and Plan of Care For the Purpose of:: To increase tolerance to activity/condition/position Comment: positional and vstibular if needed. For the Purpose of:: To increase tolerance to activity/condition/position Text: Thank you for the opportunity to evaluate your patient. For Medicare and Medicare HMO plans, please review the plan of care and approve it. It will need to be FAXED BACK to us at [phone] for Medicare purposes. For Medicare only, by signing this I certify the plan of care. Please let me know if there are questions or concerns regarding this plan of care. Physician Signature: Date:
--- NOTE | 2025-02-03 15:34 | HP.PT.NRP ---
Patient Information Patient Information: TESS RUDOLPH was seen in my office for initial evaluation on 12/16/24. The following Plan of Care was established for this patient: POC Established Initial Frequency: Every Other Week Initial Duration: 4-6 Weeks Anticipated Interventions Patient/Client Instruction: Educate patient on: Condition and Plan of Care For the Purpose of:: To increase tolerance to activity/condition/position For the Purpose of:: To increase tolerance to activity/condition/position Last Seen Last Seen: This patient was last seen in our office 12/16/24. Pertinent comments regarding their Physical therapy will appear below: Pt seen for IE and POC established with positional treatment. Pt did not attend any furrther visits. It has been over 6 weeks and i will discontinue due to nonattendance. At this point I will be discontinuing this patient from physical therapy. I would be happy to see this patient again in the future if found appropriate by the physician. Thank you! Abimael Lewis, DPT, OCS, CSCS Balance/Gait/Functional tests Balance/Special Test Scores Functional Gait Assessment Score: 30 % Disability: 0 Dizziness Score: 38
== END 2024-12-16 19:00 | disposition home or self-care (01) ==
LOC: PT 10:40
PROVIDERS: PCP Nurse Practitioner Primary Care; Referring Provider Nurse Practitioner Primary Care; Visit Provider Nurse Practitioner Primary Care
DX: H81.10 Benign paroxysmal vertigo, unspecified ear (principal)
CPT/HCPCS: 97161

== ENCOUNTER → 2025-01-26 | Outpatient (CLI) | payer MEDICARE, BC, SELFPAY ==
[2025-01-26 09:55] LABS: AST(SGOT) 21 U/L (<=31); Alanine Aminotransfer ALT/SGPT 15 U/L (<=34); Albumin, Serum 4.4 g/dL (3.4-4.8); Alkaline Phosphatase 48 U/L (35-104); Anion Gap 13 (5-15); BUN 14 mg/dL (4-19); BUN/Creat Ratio 16.2 RATIO (10-20); Calcium,Total 9.1 mg/dL (7.6-11.0); Carbon Dioxide 23.2 mmol/L (21.0-32.0); Chloride 105 mmol/L (98-108); Globulin 2.8 g/dL (2.2-4.2); Glucose 103 mg/dL (70-99); Potassium 3.9 mmol/L (3.3-5.1); Vitamin D,25 Hydroxy 26.7 ng/mL (30-100)
== END | disposition home or self-care (01) ==
LOC: LAB 07:55
PROVIDERS: PCP Nurse Practitioner Primary Care; Referring Provider Internal Medicine Endocrinology, Diabetes & Metabolism; Visit Provider Internal Medicine Endocrinology, Diabetes & Metabolism
DX: E11.65 Type 2 diabetes mellitus with hyperglycemia (principal); E89.0 Postprocedural hypothyroidism; E55.9 Vitamin D deficiency, unspecified
CPT/HCPCS: 36415; 80053; 82306; 83036; 84443